=== PATIENT | male | born 1965 | race American Indian/Alaskan Native ===

== ENCOUNTER 2017-08-08 09:17 | Emergency (ER) | payer OTHER ==
[~2017-08-08] VITALS: Ht 177.8 cm; Wt 81.7 kg
[~2017-08-08 09:17] MED LIST: AMIO200 PO; ASPI325 PO; Amiodarone HCl200 MG PO; BUSP10 PO; CARV25 PO; CARV6.25 PO; CLIN300 PO; CRUTCH3 USE; Clindamycin HC300 MG PO; Cymbalta60 MG PO; DIGO.25 PO; DIGOX250 MCG PO; FURO20 PO; FURO40 PO; HYDACE5 PO; Klor-Con 1010 MEQ PO; LISI5 PO; NITR.4SL SL; Norco 5-325 Ta1 EACH PO; Norco 7.5-3251 EACH PO; OXYACE5T PO; OXYACE7.5T PO; POTCHL20ER PO; PRED20 PO; Prinivil10 MG PO; RXOXYACE PO; SPIR25 PO; TRAM50 PO; Tylenol325 MG PO; VICODIN 5-3001 EACH PO; WARF4 PO; WARF5 PO; WARF7.5 PO; [UNRECOGNIZED DRUG - OTHER] PO
[2017-08-08] MEDS ORDERED: Prednisone20 MG PO (10:46)
[2017-08-08] MEDS ORDERED: HYDR1TAB94 PO (10:46)
== END 2017-08-08 11:06 | disposition home or self-care (01) ==
LOC: ER 09:17
DX: M54.41 Lumbago with sciatica, right side (principal); I48.91 Unspecified atrial fibrillation; I50.9 Heart failure, unspecified; F17.210 Nicotine dependence, cigarettes, uncomplicated; Z79.899 Other long term (current) drug therapy; Z79.82 Long term (current) use of aspirin; Z79.01 Long term (current) use of anticoagulants
CPT/HCPCS: 99283

== ENCOUNTER 2018-10-04 13:03 | Day surgery (SDC) | payer MEDICARE, OTHER ==
[~2018-10-04] VITALS: Ht 177.8 cm; Wt 93.4 kg
[~2018-10-04 13:03] MED LIST changes: +BACL10 PO; +BUDE6HFA INH; +HYDR1TAB94 PO; +Prednisone20 MG PO; +TUDORZA PRESS400 MCG INH; -WARF4 PO
--- NOTE | 2018-10-04 13:53 | NUR ---
10/04/18 Kalina Branch CALL LIGHT WITHIN REACH.
--- NOTE | 2018-10-04 15:45 | NUR ---
10/04/18 1545 Julieta Mathews [facility].SXM (JULIETA MATHEWS)RN CHARTED ON THIS PATIENT UNDER [facility].KAYE (ANSLEY FRYE)RN DUE TO THE COMPUTER NOT LOGGING [facility] ALL THE WAY OUT PRIOR TO [facility].SXM USING IT. Sarkis MATHEWS RN UNAWARE OF IT NOT BEING IN HER NAME UNTIL THE END OF THE CASE. IT WAS DINESH MATHEWS CHARTING AND DOING THE WHOLE PROCEDURE.
== END 2018-10-04 15:31 | disposition home or self-care (01) ==
LOC: ORSCSDS 13:03
PROVIDERS: Surgery
PROC: 0DJD8ZZ Inspection of Lower Intestinal Tract, Via Natural or Artificial Opening Endoscopic (ICD-10-PCS; principal; 2018-10-04 14:30)
DX: Z12.11 Encounter for screening for malignant neoplasm of colon (principal); I10 Essential (primary) hypertension; I48.91 Unspecified atrial fibrillation; R73.03 Prediabetes; F43.10 Post-traumatic stress disorder, unspecified; Z79.82 Long term (current) use of aspirin; Z79.899 Other long term (current) drug therapy
CPT/HCPCS: J2370; J2704; J7120

== ENCOUNTER 2020-04-06 06:53 | Day surgery (SDC) | payer MEDICARE, OTHER ==
[~2020-04-06] VITALS: Ht 170.2 cm; Wt 100.0 kg
[~2020-04-06 06:53] MED LIST changes: +GABA300 PO; +XARELTO20 MG PO
[2020-04-06 07:45] LABS: BASOPHILS ABSOLUTE AUTO 0.07 K/mm3 (0.00-0.23); BASOPHILS PERCENT AUTO 1 % (0-2); EOSINOPHILS ABSOLUTE AUTO 0.34 K/mm3 (0.00-0.68); EOSINOPHILS PERCENT AUTO 3 % (0-6); Hemoglobin 15.9 g/dL (13.5-17.5); IMMATURE GRAN ABSOLUTE AUTO 0.03 K/mm3 (0.00-0.10); IMMATURE GRAN PERCENT AUTO 0 % (0-1); LYMPHOCYTES ABSOLUTE AUTO 4.54 K/mm3 (0.84-5.20); LYMPHOCYTES PERCENT AUTO 44 % (21-46); MONOCYTES ABSOLUTE AUTO 0.82 K/mm3 (0.16-1.47); MONOCYTES PERCENT AUTO 8 % (4-13); Mean Corpuscular HGB 30.6 pg (26.0-34.0); Mean Corpuscular HGB Conc 31.8 g/dL (31.5-36.5); Mean Corpuscular Volume 96 fL (80-100); Mean Platelet Volume 10.3 fL (9.1-12.4); NEUTROPHILS ABSOLUTE AUTO 4.49 K/mm3 (1.96-9.15); NEUTROPHILS PERCENT AUTO 44 % (41-73); Platelet Count 231 K/mm3 (150-400); RDW Coefficient Variation 18.5 % (11.7-14.2); White Blood Cell Count 10.29 K/mm3 (4.00-11.30)
[2020-04-06 07:59] LABS: International Normalized Ratio 1.02; Prothrombin Time Results 10.9 Sec (9.7-11.5)
[2020-04-06 08:04] LABS: Anion Gap 3 mmol/L (6-16); Blood Urea Nitrogen 15 mg/dL (8-24); Bun/Creatinine Ratio 17.3 (12.0-20.0); CO2, Blood 28 mmol/L (21-32); Calcium, Blood 8.7 mg/dL (8.5-10.1); Chloride, Blood 109 mmol/L (98-108); Creatinine, Blood 0.87 mg/dL (0.60-1.20); Glomerular Filtration Rate >60 (60-); Glucose, Blood 120 mg/dL (70-99); Sodium, Blood 140 mmol/L (136-145)
--- NOTE | 2020-04-06 10:05 | NUR ---
PT TO RECOVERY ROOM POST PROCEDURE. PT DROWSY, BUT CONVERSING APPROPRIATELY, DENIES CHEST PAIN POST PROCEDURE. MONITOR AFIBE 115, B/P 129/86, AFEBRILE, SPO2 95% RA. R RADIAL SITE NO SWELLING/HEMATOMA, TR BAND IN PLACE. R AC (VENOUS) NO SWELLNG/HEMATOMA, TEGADERM DRSG INTACT. PT TAKING SIPS OF FLUID WITHOUT ISSUE.
--- NOTE | 2020-04-06 10:35 | NUR ---
PT RECEIVED ONE TIME DOSE OF DIGOXIN. MEDICATION CHANGES DISCUSSED WITH PT, VERBALIZES GOOD UNDERSTANDING.
[2020-04-06] MEDS ORDERED: CARV3.125 PO (10:41)
[2020-04-06] MEDS ORDERED: DIGOX250 MCG PO (10:42)
--- NOTE | 2020-04-06 12:45 | NUR ---
PT AMB IN RECOVERY ROOM WITHOUT ISSUES, SITES UNCHANGED.
--- NOTE | 2020-04-06 12:55 | NUR ---
PT DRESSED SELF WITHOUT ISSUE, SITES UNCHANGED. TR BAND REMOVED CLOTH DOT AND IMMOBILIZER PLACED; IV REMOVED-CANNULA INTACT.
--- NOTE | 2020-04-06 13:01 | NUR ---
PT RECEIVED DISCHARGE INSTRUCTIONS, MED LIST AND AFTER CARE INSTRUCTIONS; VERBALIZED GOOD UNDERSTANDING. PT LEFT FACILITY VIA W/C, CONDITION STABLE.
== END 2020-04-06 13:00 | disposition home or self-care (01) ==
LOC: MHTC 06:53
PROVIDERS: Internal Medicine Cardiovascular Disease
PROC: B201YZZ Plain Radiography of Multiple Coronary Arteries using Other Contrast (ICD-10-PCS; principal; 2020-04-06)
PROC: 4A023N7 Measurement of Cardiac Sampling and Pressure, Left Heart, Percutaneous Approach (ICD-10-PCS; principal; 2020-04-06)
DX: I42.0 Dilated cardiomyopathy (principal); I34.0 Nonrheumatic mitral (valve) insufficiency; I10 Essential (primary) hypertension; E11.9 Type 2 diabetes mellitus without complications; F17.210 Nicotine dependence, cigarettes, uncomplicated; Z79.01 Long term (current) use of anticoagulants; Z79.899 Other long term (current) drug therapy; Z95.810 Presence of automatic (implantable) cardiac defibrillator; Z20.828 Contact with and (suspected) exposure to other viral communicable diseases; E66.3 Overweight; Z68.36 Body mass index [BMI] 36.0-36.9, adult
CPT/HCPCS: 80048; 85025; 85610; 93005; 93010; 93460; 99152; C1769; C1894; J0690; J1160; J1644; J2250; J3010; J7030; J7040; Q9967; U0004

== ENCOUNTER 2020-05-24 22:44 | Emergency (ER) | payer MEDICARE, OTHER ==
[~2020-05-24] VITALS: Ht 167.6 cm; Wt 99.8 kg
[~2020-05-24 22:44] MED LIST changes: +CARV3.125 PO
[2020-05-24 23:03] LABS: BASOPHILS ABSOLUTE AUTO 0.09 K/mm3 (0.00-0.23); BASOPHILS PERCENT AUTO 1 % (0-2); EOSINOPHILS ABSOLUTE AUTO 0.85 K/mm3 (0.00-0.68); EOSINOPHILS PERCENT AUTO 7 % (0-6); Hematocrit 47.6 % (37.0-53.0); Hemoglobin 15.5 g/dL (13.5-17.5); IMMATURE GRAN ABSOLUTE AUTO 0.05 K/mm3 (0.00-0.10); IMMATURE GRAN PERCENT AUTO 0 % (0-1); LYMPHOCYTES ABSOLUTE AUTO 7.18 K/mm3 (0.84-5.20); LYMPHOCYTES PERCENT AUTO 60 % (21-46); MONOCYTES ABSOLUTE AUTO 0.95 K/mm3 (0.16-1.47); MONOCYTES PERCENT AUTO 8 % (4-13); Mean Corpuscular HGB 30.5 pg (26.0-34.0); Mean Corpuscular HGB Conc 32.6 g/dL (31.5-36.5); Mean Corpuscular Volume 94 fL (80-100); Mean Platelet Volume 10.2 fL (9.1-12.4); NEUTROPHILS ABSOLUTE AUTO 2.88 K/mm3 (1.96-9.15); NEUTROPHILS PERCENT AUTO 24 % (41-73); Platelet Count 303 K/mm3 (150-400); RDW Coefficient Variation 15.4 % (11.7-14.2); Red Blood Cell Count 5.09 M/mm3 (4.30-5.90)
[2020-05-24 23:22] LABS: Alanine Aminotransfer (ALT/SGP 29 U/L (12-78); Albumin, Blood 3.2 g/dL (3.4-5.0); Albumin/Globulin Ratio 0.8 (0.8-1.8); Alk Phos 75 U/L (50-136); Anion Gap 8 mmol/L (6-16); Aspartate Aminotrans (AST/SGOT 24 U/L (12-37); Bilirubin, Total 0.2 mg/dL (0.1-1.0); Blood Urea Nitrogen 11 mg/dL (8-24); Bun/Creatinine Ratio 12.8 (12.0-20.0); CO2, Blood 26 mmol/L (21-32); Calcium, Blood 8.1 mg/dL (8.5-10.1); Chloride, Blood 109 mmol/L (98-108); Creatinine, Blood 0.86 mg/dL (0.60-1.20); Ethanol (Alcohol), Blood, Med 249 mg/dL; Globulin, Blood 3.9 g/dL (2.2-4.0); Glomerular Filtration Rate >60 (60-); Glucose, Blood 114 mg/dL (70-99); Potassium, Blood 3.6 mmol/L (3.5-5.5); Sodium, Blood 143 mmol/L (136-145); Total Protein, Blood 7.1 g/dL (6.4-8.2)
[2020-05-24 23:25] LABS: International Normalized Ratio 0.95; Prothrombin Time Results 10.2 Sec (9.7-11.5)
[2020-05-25 00:01] LABS: U Amphetamine Screen Not Detected; U Barbituate Screen Not Detected; U Benzodiazapine Screen Not Detected; U Buprenorphine Screen Not Detected; U Cannabinoids Screen Not Detected; U Cocaine Screen Not Detected; U Methadone Screen Not Detected; U Methamphetamine Screen Not Detected; U Opiates Screen Not Detected; U Oxycodone Screen Not Detected; U Phencyclidine Screen Not Detected; U Propoxyphene Screen Not Detected
== END 2020-05-25 01:17 | disposition home or self-care (01) ==
LOC: ER 22:44
PROVIDERS: Emergency Medicine
DX: F10.129 Alcohol abuse with intoxication, unspecified (principal); R41.82 Altered mental status, unspecified; I48.91 Unspecified atrial fibrillation; I50.9 Heart failure, unspecified; F17.210 Nicotine dependence, cigarettes, uncomplicated; Z79.01 Long term (current) use of anticoagulants; Z79.899 Other long term (current) drug therapy; Z95.0 Presence of cardiac pacemaker
CPT/HCPCS: 36415; 51701; 70450; 71045; 80053; 82947; 85025; 85610; 93005; 93010; 99285-25; G0480

== ENCOUNTER 2020-06-26 14:38 | Emergency (ER) | payer MEDICARE, OTHER ==
[~2020-06-26] VITALS: Ht 177.8 cm; Wt 95.2 kg
[2020-06-26 15:07] LABS: BASOPHILS ABSOLUTE AUTO 0.13 K/mm3 (0.00-0.23); BASOPHILS PERCENT AUTO 1 % (0-2); EOSINOPHILS ABSOLUTE AUTO 0.51 K/mm3 (0.00-0.68); EOSINOPHILS PERCENT AUTO 4 % (0-6); Hematocrit 46.5 % (37.0-53.0); Hemoglobin 14.9 g/dL (13.5-17.5); IMMATURE GRAN ABSOLUTE AUTO 0.04 K/mm3 (0.00-0.10); IMMATURE GRAN PERCENT AUTO 0 % (0-1); LYMPHOCYTES ABSOLUTE AUTO 5.25 K/mm3 (0.84-5.20); LYMPHOCYTES PERCENT AUTO 42 % (21-46); MONOCYTES ABSOLUTE AUTO 1.19 K/mm3 (0.16-1.47); MONOCYTES PERCENT AUTO 9 % (4-13); Mean Corpuscular HGB 31.5 pg (26.0-34.0); Mean Corpuscular Volume 98 fL (80-100); Mean Platelet Volume 10.6 fL (9.1-12.4); NEUTROPHILS PERCENT AUTO 44 % (41-73); Platelet Count 304 K/mm3 (150-400); RDW Coefficient Variation 14.6 % (11.7-14.2); RDW Standard Deviation 53.6 fL (35.1-46.3); Red Blood Cell Count 4.73 M/mm3 (4.30-5.90); White Blood Cell Count 12.62 K/mm3 (4.00-11.30)
[2020-06-26 15:27] LABS: Alanine Aminotransfer (ALT/SGP 24 U/L (12-78); Albumin, Blood 3.3 g/dL (3.4-5.0); Albumin/Globulin Ratio 0.8 (0.8-1.8); Alk Phos 84 U/L (50-136); Anion Gap 9 mmol/L (6-16); Aspartate Aminotrans (AST/SGOT 17 U/L (12-37); Bilirubin, Total 0.4 mg/dL (0.1-1.0); Blood Urea Nitrogen 9 mg/dL (8-24); Bun/Creatinine Ratio 12.4 (12.0-20.0); CO2, Blood 26 mmol/L (21-32); Calcium, Blood 8.3 mg/dL (8.5-10.1); Chloride, Blood 108 mmol/L (98-108); Creatinine, Blood 0.73 mg/dL (0.60-1.20); Globulin, Blood 3.9 g/dL (2.2-4.0); Glomerular Filtration Rate >60 (60-); Glucose, Blood 83 mg/dL (70-99); Potassium, Blood 3.9 mmol/L (3.5-5.5); Sodium, Blood 143 mmol/L (136-145); Total Protein, Blood 7.2 g/dL (6.4-8.2); Troponin I <0.015 ng/mL (0.000-0.040)
[2020-06-26 16:13] LABS: International Normalized Ratio 1.1; Prothrombin Time Results 11.7 Sec (9.7-11.5)
[2020-06-26] MEDS ORDERED: Vibramycin100 MG PO (18:38)
== END 2020-06-26 19:01 | disposition home or self-care (01) ==
LOC: ER 14:38
PROVIDERS: Emergency Medicine
DX: J18.9 Pneumonia, unspecified organism (principal); I11.0 Hypertensive heart disease with heart failure; I50.9 Heart failure, unspecified; J44.9 Chronic obstructive pulmonary disease, unspecified; I48.91 Unspecified atrial fibrillation; F17.210 Nicotine dependence, cigarettes, uncomplicated; Z79.899 Other long term (current) drug therapy; Z79.51 Long term (current) use of inhaled steroids
CPT/HCPCS: 36415; 71045; 80053; 83880; 84484; 85025; 85610; 93005; 93010; 96360; 99285-25; A9270; J7030

== ENCOUNTER 2021-02-04 16:39 | Inpatient (IN) | payer MEDICARE, OTHER ==
[~2021-02-04] VITALS: Ht 177.8 cm; Wt 119.3 kg
[~2021-02-04 16:39] MED LIST changes: -BUDE6HFA INH; +SYMBICORT 160-4.6 GM INH; +Vibramycin100 MG PO
[2021-02-04] MEDS ORDERED: ENTRESTO 97 MG1 EAC3 PO (17:22)
[2021-02-04] MEDS ORDERED: GABAPENTIN600 MG PO (17:24)
[2021-02-04] MEDS ORDERED: INCRUSE ELPT62.5MCG INH (17:24)
[2021-02-04] MEDS ORDERED: SPIRONOLACTONE25 MG PO (17:25)
[2021-02-04] MEDS ORDERED: DULOXETINE HCL60 M1 PO (17:25)
[2021-02-04] MEDS ORDERED: METO100ER PO (17:25)
[2021-02-04] MEDS ORDERED: JARDIANCE10 MG PO (17:25)
[2021-02-04] MEDS ORDERED: BUSPIRONE HCL10 M4 PO (17:25)
[2021-02-04] MEDS ORDERED: AMIT75 PO (17:25)
[2021-02-04] MEDS ORDERED: K-Dur 20 meq T20 MEQ PO (17:32)
[2021-02-04] MEDS ORDERED: FUROSEMIDE40 MG PO (17:32)
[2021-02-04 18:00] LABS: Base Excess Venous -2.9 mmol/L; Bicarbonate Venous 22.7 mmol/L (24.0-30.0); PCO2 Venous 33.4 mmHg (38-42); pH Blood Venous 7.42 (7.34-7.37)
[2021-02-04 18:07] LABS: BASOPHILS ABSOLUTE AUTO 0.02 K/mm3 (0.00-0.23); BASOPHILS PERCENT AUTO 0 % (0-2); EOSINOPHILS PERCENT AUTO 0 % (0-6); Hematocrit 50.2 % (37.0-53.0); Hemoglobin 17.3 g/dL (13.5-17.5); IMMATURE GRAN ABSOLUTE AUTO 0.05 K/mm3 (0.00-0.10); IMMATURE GRAN PERCENT AUTO 1 % (0-1); LYMPHOCYTES ABSOLUTE AUTO 1.92 K/mm3 (0.84-5.20); LYMPHOCYTES PERCENT AUTO 26 % (21-46); MONOCYTES ABSOLUTE AUTO 0.53 K/mm3 (0.16-1.47); MONOCYTES PERCENT AUTO 7 % (4-13); Mean Corpuscular HGB 32.4 pg (26.0-34.0); Mean Corpuscular HGB Conc 34.5 g/dL (31.5-36.5); Mean Corpuscular Volume 94 fL (80-100); Mean Platelet Volume 10.1 fL (9.1-12.4); NEUTROPHILS ABSOLUTE AUTO 4.83 K/mm3 (1.96-9.15); NEUTROPHILS PERCENT AUTO 66 % (41-73); NRBC ABSOLUTE 0.02 K/mm3 (0.00-0.02); NRBC Auto 0.3 /100 WBC (0.0-0.2); Platelet Count 220 K/mm3 (150-400); RDW Coefficient Variation 13.8 % (11.7-14.2); RDW Standard Deviation 48.2 fL (35.1-46.3); Red Blood Cell Count 5.34 M/mm3 (4.30-5.90); White Blood Cell Count 7.35 K/mm3 (4.00-11.30)
[2021-02-04 18:32] LABS: Troponin I <0.015 ng/mL (0.000-0.040)
[2021-02-04 18:34] LABS: Alanine Aminotransfer (ALT/SGP 42 U/L (12-78); Albumin, Blood 3.4 g/dL (3.4-5.0); Albumin/Globulin Ratio 0.7 (0.8-1.8); Alk Phos 76 U/L (50-136); Anion Gap 8 mmol/L (6-16); Aspartate Aminotrans (AST/SGOT 65 U/L (12-37); Bilirubin, Total 0.7 mg/dL (0.1-1.0); Blood Urea Nitrogen 13 mg/dL (8-24); Bun/Creatinine Ratio 13.5 (12.0-20.0); CO2, Blood 22 mmol/L (21-32); Calcium, Blood 8.6 mg/dL (8.5-10.1); Chloride, Blood 101 mmol/L (98-108); Creatinine, Blood 0.96 mg/dL (0.60-1.20); Globulin, Blood 4.6 g/dL (2.2-4.0); Glomerular Filtration Rate >60 (60-); Glucose, Blood 78 mg/dL (70-99); Potassium, Blood 4.3 mmol/L (3.5-5.5); Sodium, Blood 131 mmol/L (136-145)
--- NOTE | 2021-02-05 00:16 | NUR ---
PATIENT ARRRIVED TO THE FLOOR VIA GURNEY. ADMIT FOR COVID 19. AOX3, COOPERATIVE, ILL APPEARING. PALE, DIAPHORTIC. TRANSFERRED TO BED USING SLIDER SHEET, TURNING BACK AND FORTH, CAUSED HIM TO BECOME DYSPNIC RAISING RESPIRATIONS IN THE 20'S. ON 3 LITERS OF O2 SATS MID 90'S. LUNG SOUNDS CLEAR BUT VERY DIMINISHED IN THE BASES AND TIGHT. HR TACHY RUNNING IN 110'S, DOES HAVE DEFIB/PACEMAKER. MIDLINE INCISION FROM SPLEEN SURGERY. REFUSED TO REMOVE PANTS, DENIES ANY ISSUES WITH SKIN. DENIES ANY N/T. ENCOURAGE SLEEPING ON SIDE OR PRONE. DISCUSSED TREATMENT PLAN AND CARE PLAN. DENIED ANY QUESTIONS OR CONCERNS, STATES HE IS JUST TIRED. CALL LIGHT GIVEN, BED ALARM IS ON.
--- NOTE | 2021-02-05 04:12 | NUR ---
REPORT GIVEN TO BRENDA MONTIEL WHO WILL BE ASSUMING CARE.
[2021-02-05 04:51] LABS: Hematocrit 52.4 % (37.0-53.0); Hemoglobin 17.4 g/dL (13.5-17.5); Mean Corpuscular HGB 31.8 pg (26.0-34.0); Mean Corpuscular HGB Conc 33.2 g/dL (31.5-36.5); Mean Corpuscular Volume 96 fL (80-100); NRBC ABSOLUTE 0.04 K/mm3 (0.00-0.02); NRBC Auto 0.5 /100 WBC (0.0-0.2); Platelet Count 233 K/mm3 (150-400); RDW Coefficient Variation 14.2 % (11.7-14.2); RDW Standard Deviation 50.7 fL (35.1-46.3); Red Blood Cell Count 5.47 M/mm3 (4.30-5.90); White Blood Cell Count 7.44 K/mm3 (4.00-11.30)
[2021-02-05 05:38] LABS: Anion Gap 9 mmol/L (6-16); Blood Urea Nitrogen 12 mg/dL (8-24); Bun/Creatinine Ratio 13.7 (12.0-20.0); CO2, Blood 18 mmol/L (21-32); Calcium, Blood 8.3 mg/dL (8.5-10.1); Chloride, Blood 106 mmol/L (98-108); Creatinine, Blood 0.88 mg/dL (0.60-1.20); Glomerular Filtration Rate >60 (60-); Glucose, Blood 125 mg/dL (70-99); Potassium, Blood 4.5 mmol/L (3.5-5.5); Sodium, Blood 133 mmol/L (136-145)
--- NOTE | 2021-02-05 16:43 | NUR ---
PT HAD WATERY BROWN STOOL. DR. SALINAS NOTIFIED AND TO RECIEVED TO GET GI PCR. ORDER PROCESSED. STOOL FLUSHED ALREADY. WILL COLLECT NEXT STOOL SAMPLE.
--- NOTE | 2021-02-05 17:23 | NUR ---
SHIFT SUMMARY: PT A/O X 3, IND IN ROOM. PT HAD WATERY STOOL TODAY. GI PCR ORDERED BY DR. SALINAS. PT ON 6 LPM VIA VT. LS CLEAR, NO ACUTE CHANGES THIS SHIFT.
[2021-02-06 05:22] LABS: Albumin, Blood 3.1 g/dL (3.4-5.0); Anion Gap 10 mmol/L (6-16); Blood Urea Nitrogen 18 mg/dL (8-24); Bun/Creatinine Ratio 22.7 (12.0-20.0); CO2, Blood 20 mmol/L (21-32); Calcium, Blood 8.7 mg/dL (8.5-10.1); Chloride, Blood 103 mmol/L (98-108); Creatinine, Blood 0.79 mg/dL (0.60-1.20); Glomerular Filtration Rate >60 (60-); Glucose, Blood 93 mg/dL (70-99); Phosphorus, Blood 2.9 mg/dL (2.5-4.9); Sodium, Blood 133 mmol/L (136-145)
--- NOTE | 2021-02-06 16:53 | NUR ---
MR. ROLY ALARCON IS ALERT AND ORIENTED X 4. NO REPORTS OF PAIN. SOB WITH EXERTION. DURING ROUNDS AT 1425, THE PATIENT REPORTED HE WAS NOT FEELING WELL. HE STATED "I FEEL LIKE I WANT TO THROW UP". HE COULD NOT PROVIDE ANY OTHER SPECIFICS. HIS VS WERE 89/58, P-46-58, R - 36, SAT 92 - 93% 0N 5L NC. HE APPEARED ANXIOUS. HE LATER STATED "I FEEL LIKE I FELT WHEN I CAME TO THE HOSPITAL." CHARGE NURSE WAS NOTIFIED. 1456 DR. SALINAS WAS NOTIFIED VIA PHONE. DR. SALINAS REQUESTED FOR BLOOD PRESSURE RECHECK. AT 1458, B/P WAS 92/46, P 58. DR. SALINAS WAS IMMEDIATELY NOTIFED OF B/P AND SHE GAVE ORDERS TO RE-CHECK B/P IN 20 MIN. AT 1538, B/P WAS 94/77 P - 84 AND PATIENT APPEARED TO BE RELAXING. B/P WAS CALLED TO DR. SALINAS. SHE REQUESED FOR B/P TO BE RECHECKED IN ONE HOUR. THE PATIENT STATED HE WAS TRYING TO RELAX AND CALM HIMSELF. HE DENIES FEELING NAUSEA. HE HAS BEEN ABLE TO TOLERATE PO MEDS THUS FAR. HE DID NOT HAVE A BM. HE IS DRINKING ALOT OF FLUIDS AND VOIDING WITHOUT DIFFICULTY.
--- NOTE | 2021-02-06 19:27 | NUR ---
THE PATIENT'S BLOOD PRESSURE WAS 95/53, P 79. THE PATIENT C/O STOMACH 'GRUMBLING', HE DID NOT EAT DINNER DUE TO NOT FEELING WELL. NO OTHER SYMPTOMS REPORTED. DR SALINAS WAS NOTIFIED. ORDERS RECEIVED TO HOLD ALL CARDIAC MEDS FOR TONIGHT ONLY AND MONITOR. TELEPHONE ORDER WAS SUBMITTED AND PM NURSE NOTIFIED.
--- NOTE | 2021-02-07 05:41 | NUR ---
END OF SHIFT REPORT: Pt is tachypneic and sats dropping to low 80's on 5L NC. Pt put to 9L and is satting >90% when awake. While asleep, pt is a mouth breather and sat goes down ot 80's. Pt is refusing CPAP. RT notified. Pt put on NRB at this time. Pt satting 90-95% Pt A&Ox4.
[2021-02-07 06:27] LABS: Albumin, Blood 2.7 g/dL (3.4-5.0); Anion Gap 7 mmol/L (6-16); Blood Urea Nitrogen 21 mg/dL (8-24); CO2, Blood 22 mmol/L (21-32); Calcium, Blood 8.4 mg/dL (8.5-10.1); Chloride, Blood 100 mmol/L (98-108); Creatinine, Blood 0.92 mg/dL (0.60-1.20); Glomerular Filtration Rate >60 (60-); Glucose, Blood 100 mg/dL (70-99); Phosphorus, Blood 4.3 mg/dL (2.5-4.9); Potassium, Blood 5.5 mmol/L (3.5-5.5); Sodium, Blood 129 mmol/L (136-145)
[2021-02-07 13:50] LABS: Base Excess Venous -2.1 mmol/L; Bicarbonate Venous 23.5 mmol/L (24.0-30.0); PCO2 Venous 33.2 mmHg (38-42); PO2 Venous 83.2 mmHg (38-42); pH Blood Venous 7.43 (7.34-7.37)
--- NOTE | 2021-02-07 16:24 | NUR ---
MR. ROLY ALARCON IS ALERT AND ORIENTED X 4. HE DENIES PAIN. HE REPORTS THIS MORNING OF NOT FEELING WELL. HE STATES HIS STOMACH IS RUMBLING ALOT. RESP RATE 40'S. HE DENIED SOB. SPOKE WITH DR. SALINAS. ABD XRAY ORDER AND LABS. THE PATIENT WENT FOR XRAY VIA WHEELCHAIR. HE IS ON A NON-REBREATHER WITH 02 SAT LOW 90'S. ABD LARGE SEMI-FIRM WITH HYPERACTIVE BS. HE DID NOT HAVE BM TODAY. EATING BETTER AND VOIDING WITHOUT DIFFICULTY. IV 20G IS PATENT. HE IS RESTING QUIETLY. LABS ABNORMAL AND DR. SALINAS AWARE. HE IS IN NO ACUTE DISTRESS AT THIS TIME.
--- NOTE | 2021-02-08 05:37 | NUR ---
END OF SHIFT REPORT: Pt satting at 89-94% on NRB 100%. He is still tachypneic. At this time, respirations at 44, RT notified. Pt reporting no SOB at this time, sats at 90% Call light within reach. Bed at lowest position. Pt Afib at 100 per television maintenance man. No pt needs/requests at this time.
[2021-02-08 05:49] LABS: Albumin, Blood 2.8 g/dL (3.4-5.0); Anion Gap 9 mmol/L (6-16); Blood Urea Nitrogen 21 mg/dL (8-24); Bun/Creatinine Ratio 26.4 (12.0-20.0); CO2, Blood 23 mmol/L (21-32); Calcium, Blood 8.5 mg/dL (8.5-10.1); Chloride, Blood 101 mmol/L (98-108); Creatinine, Blood 0.79 mg/dL (0.60-1.20); Glomerular Filtration Rate >60 (60-); Glucose, Blood 117 mg/dL (70-99); Phosphorus, Blood 3.9 mg/dL (2.5-4.9); Potassium, Blood 4.4 mmol/L (3.5-5.5); Sodium, Blood 133 mmol/L (136-145)
--- NOTE | 2021-02-08 10:56 | NUR ---
THIS AM UPON RECEIVING PATIENT PATIENT NOTED WITH SOB WAS ON 15L PER NRB MASK APPEARED TO BE WEAK FATIGUED O2 SATS 86-89% SPOKE WITH MD PATIENT TO BE PLACED ON AIRVOW/HIGH FLOW O2 RT NOTIFIED AND PLACED PATIENT ON AIRVOW 45L @ 80% PATIENT IMMEDIATELY VERBALIZED IMPROVEMENT IN RESP STATUS DECREASED SOB SATS >92 % PATIENT A&OX4 DENIES PAIN WILL CONT TO MONITOR
[2021-02-09 06:37] LABS: Anion Gap 9 mmol/L (6-16); Blood Urea Nitrogen 23 mg/dL (8-24); Bun/Creatinine Ratio 28.9 (12.0-20.0); CO2, Blood 23 mmol/L (21-32); Calcium, Blood 8.3 mg/dL (8.5-10.1); Chloride, Blood 101 mmol/L (98-108); Digoxin (Lanoxin) 0.55 ug/mL (0.80-2.00); Glomerular Filtration Rate >60 (60-); Glucose, Blood 139 mg/dL (70-99); Potassium, Blood 4.4 mmol/L (3.5-5.5); Sodium, Blood 133 mmol/L (136-145)
--- NOTE | 2021-02-09 09:56 | NUR ---
PATIENT NOTED WITH INTERMITTENT EPISODES OF BRADYCARDIA DIGOXIN HELD THIS AM ORDERED FOR HEARTRATE OF 55 PATIENT DENIES CHEST PAIN REMAINS WITH INTERMITTENT SOB O2 VIA AIRVOW MAINTAINED @ 60L 80% HAS STRONG DRY NON-PRODUCTIVE COUGH DR GALINDO MADE AWARE WILL CONT TO MONITOR
--- NOTE | 2021-02-09 15:55 | NUR ---
PATIENT WITH NO CHANGES IN CONDITION NOTED THIS SHIFT REMAINS A&OX4 ABLE TO VERBALIZE NEEDS REMAINS ON O2 VIA AIRVOW 60L 80% WITH INTERMITTENT SOB/DOMINGUEZ STRONG DRY COUGH DENIES PAIN ADEQUATE PO INTAKE WILL CONT TO MONITOR
--- NOTE | 2021-02-09 18:31 | NUR ---
PATIENT REMAINS WITH SOB ENCOURAGED PRONE OR SIDE-LYING POSITION IN ATTEMPTS TO IMPROVE OXYGENATION PATIENT VERBALIZES UNDERSTANDING HOWEVER CONTINUES TO SIT UP IN BED WITH HOB ELEVATED STATED HE MAY ATTEMPT SIDE-LYING TO PRONE POSITIONING LATER TONIGHT WILL CONTINUE TO ENCOURAGE
[2021-02-10 03:14] LABS: PCO2 Arterial 39.8 mmHg (35-45); PO2 Arterial 57.2 mmHg (80-100); pH Blood Arterial 7.43 (7.35-7.45)
--- NOTE | 2021-02-10 04:47 | NUR ---
PATIENT CONTINUED TO DESAT WHILE ON O2 VIA AIRVO HIGH FLOW AT 60 LPM AND NON REBREATHER AT 15L 02. PATIENT NOTED WITH LABORED BREADING WITH 02 SAT AT LOW 80s. MD CALLED AND NOTIFIED. MD GAVE NEW ORDERS FOR BIPAP/CPAP, AND ABGs. THE RESPIRATORY THERAPY ADMINISTERED BIPAP AND WAS UNSUCCESSFUL TO RAISE THE 02 SAT TO THE 90s. THE RESPIRATORY THERAPIST ADMINISTERED CPAP AND WAS SUCCESFUL TO RAISE THE 02 SAT UP TO 93% TO 95%. PATIENT IS TOLERATING CPAP WELL. PATIENT HAS HISTORY OF OBSTRUCTIVE SLEEP APNEA, AFIB, CHF, PACE MAKER WITH DEFIBRILLATOR. PATIENT CONTINUE TO REQUIRE HIGHER DOSES OF OXYGEN. PATIENT CONTINUED WITH NON PRODUCTIVE COUGH. PATIENT WAS ENCOURAGED TO SLEEP ON HIS SIDE, BUT CONTINUED TO SLEEP ON HIS BACK. VITAL SIGNS 96.7, 55, 32, 107/75. WILL CONTINUE TO MONITOR AND ENCOURAGE TO SLEEP AND HIS SIDE FOR BETTER OXYGEN CIRCULATION.
--- NOTE | 2021-02-10 18:04 | NUR ---
PATIENT A&OX4 ABLE TO VERBALIZE NEEDS REMAINS ON CPAP RT ATTEMPTED TO WEAN OFF OF CPAP WAS UNSUCCESSFUL PATIENT UABLE TO MAINTAIN ADEQUATE O2 SATURATION ON BIPAP SATS FLUCTUATING 90-98% PATIENT VERBALIZES FEELING FATIGUED MED AND SIPS OF WATER TOLERATED DENIES PAIN FAMILY GIVEN UPDATE ON PATIENT STATUS AT THIS TIME PATIENT SITTING UP IN BED CALL LIGHT WITHIN REACH WILL CONT TO MONITOR
--- NOTE | 2021-02-11 05:47 | NUR ---
PATIENT CONTINUE ON CPAP THIS SHIFT D/T DIFFICULTY BREATHING, 02 SAT IN THE MID 90s TO UPPER 90s. VITAL SIGNS BP 100/97, HR 80, RESP 30, 02 SAT 97%. VALSARTEN WAS HELD DUE TO BP 100/97. PATIENT WAS ABLE TO USE URINAL INDEPENDENTLY. PATIENT TOLERATED PO MEDICATIONS WELL, SOLU MEDROL ADMIMINISTERED VIA SALIN LOCK IV. PATIENT IS ALERT AND ORIENTED PLEASANT AND COOPERATIVE. WILL CONTINUE TO MONITOR AND ENCOURAGED.
--- NOTE | 2021-02-11 10:52 | NUR ---
0900 TRIALED PT ON AIRVO FROM CPAP. DID WELL FOR 1 1/2 TO 2 HR. O2 SATS FELL. REPLACED CPAP BY RESP THERAPY. PT SATS BACK >90%.
--- NOTE | 2021-02-11 16:55 | NUR ---
PT WAS ON TELE THIS AM. RUNNING AFIB AT 86. WE D/C PER DARRYL GALINDO. HOWEVER, NOTICED THE MONITOR FOR CONT BIOX READING LOW 40 TO 50. RADIAL PULSES ARE IRREG, IS PT IS IN AFIB. CALLED DR GALINDO, ORDERS FOR REPLACE TELE ONPT OVERNITE TO VERIFY NO PROBLS.
--- NOTE | 2021-02-11 17:02 | NUR ---
PT QUITE PLEASANT TODAY. NO C/O PAIN TODAY. WE DID TRIAL HIM ON AIRVO TODAY. DID WELL FOR ABOUT 2 HRS THEN DROPPED. PLACED ON CPAP AGAIN. ALSO DR GALINDO D/C TELE THIS AM. DONE. THEN NOTED THE CONT BIOX SHOWING H/R DROPPING TO LOW 40-50. RADIAL PULSES SHOW ABOUT 45. CALLED DR GALINDO. OKAYED REPLACE TELE. AND WATCH OVERNITE. DONE. NO OTHER NEW CONCERNS NOTED TODAY. BED IN LOW POSITION, CALL LITE IN REACH, CALLS APPROP
--- NOTE | 2021-02-12 06:16 | NUR ---
SHIFT SUMMARY PATIENT ALERT AND ORIENTED. NO COMPLAINTS OF PAIN. FOLLOWED BY RT. NO ACUTE ISSUES NOTED OVERNIGHT. CALL LIGHT WITHIN REACH. REPORT GIVEN TO ONCOMING RN.
--- NOTE | 2021-02-12 09:56 | NUR ---
HOLD H/R PER DR GALINDO. LOW BP
--- NOTE | 2021-02-12 18:21 | NUR ---
PT QUITE PLEASANT TODAY, STATES FEELS SOME SMALL IMPROVEMENT TODAY. HAS BEEN ON AIRVO ALL OF TODAY. STATES DOES TURN SELF IN BED AND DOES MOVE ABOUT SOME. ENCOURAGED MORE ESPECIALLY TO GET OFF BACK AND BOTTOM. STATES DOES. OT HAS BEEN MOSTLY HOLDING IN MID 'S TODAY. VERY RARELY DROPPING HAS DONE IN PAST. NO NEW CONCERNS NOTED. BED IN LOW POSITION, CALL LITE IN REACH, CALLS APROP
--- NOTE | 2021-02-13 04:40 | NUR ---
NO ACUTE CHANGES OR SIGNIFICANT EVENTS OCCURRED OVERNIGHT. PATIENT SLEPT ON AIRVO 50L/95%. MOSTLY SAT IN LOWER 90S. OCCASSIONALY WILL DESAT TO UPPER 80S VERY BRIEFLY THEN RETURN TO 90S. DENIES PAIN. DENIES NAUSEA.
[2021-02-13 05:28] LABS: BASOPHILS ABSOLUTE AUTO 0.04 K/mm3 (0.00-0.23); BASOPHILS PERCENT AUTO 0 % (0-2); EOSINOPHILS PERCENT AUTO 0 % (0-6); Hematocrit 53.4 % (37.0-53.0); IMMATURE GRAN ABSOLUTE AUTO 0.15 K/mm3 (0.00-0.10); IMMATURE GRAN PERCENT AUTO 1 % (0-1); LYMPHOCYTES ABSOLUTE AUTO 0.97 K/mm3 (0.84-5.20); LYMPHOCYTES PERCENT AUTO 7 % (21-46); MONOCYTES ABSOLUTE AUTO 0.37 K/mm3 (0.16-1.47); MONOCYTES PERCENT AUTO 3 % (4-13); Mean Corpuscular HGB 31.7 pg (26.0-34.0); Mean Corpuscular HGB Conc 33.7 g/dL (31.5-36.5); Mean Corpuscular Volume 94 fL (80-100); Mean Platelet Volume 10.3 fL (9.1-12.4); NEUTROPHILS ABSOLUTE AUTO 12.22 K/mm3 (1.96-9.15); NEUTROPHILS PERCENT AUTO 89 % (41-73); NRBC ABSOLUTE 0.06 K/mm3 (0.00-0.02); NRBC Auto 0.4 /100 WBC (0.0-0.2); Platelet Count 307 K/mm3 (150-400); RDW Coefficient Variation 13.7 % (11.7-14.2); RDW Standard Deviation 47.9 fL (35.1-46.3); Red Blood Cell Count 5.67 M/mm3 (4.30-5.90); White Blood Cell Count 13.75 K/mm3 (4.00-11.30)
[2021-02-13 06:01] LABS: Anion Gap 8 mmol/L (6-16); Blood Urea Nitrogen 27 mg/dL (8-24); CO2, Blood 27 mmol/L (21-32); Calcium, Blood 8.6 mg/dL (8.5-10.1); Chloride, Blood 97 mmol/L (98-108); Glomerular Filtration Rate >60 (60-); Glucose, Blood 148 mg/dL (70-99); Potassium, Blood 4.5 mmol/L (3.5-5.5); Sodium, Blood 132 mmol/L (136-145)
--- NOTE | 2021-02-13 18:30 | NUR ---
SHIFT SUMMARY: PT A/O X3. PT USES URINAL AT BEDSIDE. PT HAS NOT HAD A BM IN 3 DAYS PER HIS REPORT BUT I/O INDICATE SINCE THE . MIRALAX GIVEN IN THE EVENING. PT TITRATED O2 TO 50 LPM, 70 FIO2 WITH SATS IN THE LOW 90'S. PT DENIES PAIN. NO ACUTE CONCERNS THIS SHIFT.
[2021-02-14 04:53] LABS: Hematocrit 52.8 % (37.0-53.0); Hemoglobin 17.8 g/dL (13.5-17.5); Mean Corpuscular HGB 31.4 pg (26.0-34.0); Mean Corpuscular HGB Conc 33.7 g/dL (31.5-36.5); Mean Corpuscular Volume 93 fL (80-100); Mean Platelet Volume 9.9 fL (9.1-12.4); Platelet Count 306 K/mm3 (150-400); RDW Coefficient Variation 13.4 % (11.7-14.2); RDW Standard Deviation 46.3 fL (35.1-46.3); Red Blood Cell Count 5.66 M/mm3 (4.30-5.90)
--- NOTE | 2021-02-14 04:53 | NUR ---
OXYGEN WAS BETWEEN 90%-93% THROUGHOUT THE ENTIRE NIGHT ON AIRVO. NO SIGNIFICANT EVENTS OCCURED.
[2021-02-14 04:55] LABS: NRBC ABSOLUTE 0.04 K/mm3 (0.00-0.02); NRBC Auto 0.3 /100 WBC (0.0-0.2); White Blood Cell Count 13.72 K/mm3 (4.00-11.30)
[2021-02-14 05:13] LABS: Alanine Aminotransfer (ALT/SGP 58 U/L (12-78); Albumin, Blood 2.3 g/dL (3.4-5.0); Albumin/Globulin Ratio 0.5 (0.8-1.8); Alk Phos 68 U/L (50-136); Anion Gap 5 mmol/L (6-16); Aspartate Aminotrans (AST/SGOT 39 U/L (12-37); Bilirubin, Total 0.7 mg/dL (0.1-1.0); Blood Urea Nitrogen 21 mg/dL (8-24); Bun/Creatinine Ratio 29.2 (12.0-20.0); CO2, Blood 28 mmol/L (21-32); Calcium, Blood 8.3 mg/dL (8.5-10.1); Chloride, Blood 99 mmol/L (98-108); Creatinine, Blood 0.72 mg/dL (0.60-1.20); Ferritin, Serum 588 ng/mL (26-388); Globulin, Blood 4.7 g/dL (2.2-4.0); Glomerular Filtration Rate >60 (60-); Glucose, Blood 144 mg/dL (70-99); Sodium, Blood 132 mmol/L (136-145)
--- NOTE | 2021-02-14 18:46 | NUR ---
SHIFT SUMMARY: PT A/O X 3 USES URINAL AT BEDSIDE. PT CONTINUES TO BE ON AIRVO 50 LPM 70 FIO2. PT SATS IN THE AM WERE 90-92 BUT NOW ARE 94-95%. PT HAD NO ACUTE EVENTS TODAY. PT CONTINUES TO DENY HAVING URGE TO HAVE BM.
--- NOTE | 2021-02-15 05:04 | NUR ---
PATIENT SLEPT ON BIPAP. OXYGEN LEVEL MAINTAINED WELL. HE DID HAD AN EPISODE WHERE HE REMOVED HIS CPAP WHILE SLEEPING. HE DESATED TO THE LOWER 80S. ONCE THE CPAP WAS PLACED BACK ON, OXYGEN LEVEL NORMALIZED. HE IS GREATER THAN 92% OXYGEN LEVEL ON CPAP OVERNIGHT. ALSO, MIRALAX GIVEN FOR CONSITPATION. NO OTHER SIGNIFICANT OCCURRENCES OR ACUTE CHANGES IN CONDITION NOTED OVERNIGHT.
[2021-02-15 05:15] LABS: Hematocrit 52.4 % (37.0-53.0); Hemoglobin 17.6 g/dL (13.5-17.5); Mean Corpuscular HGB 31.6 pg (26.0-34.0); Mean Corpuscular HGB Conc 33.6 g/dL (31.5-36.5); Mean Corpuscular Volume 94 fL (80-100); Mean Platelet Volume 10.2 fL (9.1-12.4); NRBC ABSOLUTE 0.04 K/mm3 (0.00-0.02); NRBC Auto 0.2 /100 WBC (0.0-0.2); Platelet Count 287 K/mm3 (150-400); RDW Coefficient Variation 13.5 % (11.7-14.2); Red Blood Cell Count 5.57 M/mm3 (4.30-5.90); White Blood Cell Count 16.43 K/mm3 (4.00-11.30)
[2021-02-15 05:44] LABS: Anion Gap 4 mmol/L (6-16); Blood Urea Nitrogen 19 mg/dL (8-24); Bun/Creatinine Ratio 26.5 (12.0-20.0); CO2, Blood 30 mmol/L (21-32); Calcium, Blood 8.6 mg/dL (8.5-10.1); Chloride, Blood 98 mmol/L (98-108); Creatinine, Blood 0.72 mg/dL (0.60-1.20); Glomerular Filtration Rate >60 (60-); Glucose, Blood 152 mg/dL (70-99); Potassium, Blood 4.8 mmol/L (3.5-5.5); Sodium, Blood 132 mmol/L (136-145)
--- NOTE | 2021-02-15 13:10 | NUR ---
Pt`s door closed, from, can not go in ,offered prayer from the door of the room of the Pt.
--- NOTE | 2021-02-15 13:25 | NUR ---
AIRVO TITRATED DOWN TO 45 LPM, 60% O2 AND SATS HAVE REMAINED 92-93% THE PAST TWO HOURS. TIRATED FURTHER TO 40 LPM, 60% FIO2. SATS 93% AT THIS TIME.
--- NOTE | 2021-02-15 19:30 | NUR ---
SHIFT SUMMARY: PT A/O X 3 IND IN ROOM. PT TITRATED DOWN T/OUT DAY AND SWITCHED TO HIGH FLOW NC AT 12 LPM AT SHIFT END WITH SATS BETWEEN 91-93%. PT STILL HAS NOT HAD A BM, DENIES SYMPTOMS OF CONSTIPATION. NOC RN NOTIFIED AND WILL GIVE MIRALAX. NO OTHER ACUTE CONCERNS THIS SHIFT.
--- NOTE | 2021-02-16 03:28 | NUR ---
PATIENT WAS CHANGED FROM HIGH FLOW, HUMIDIFIED NASAL CANNULA BACK TO AIRVO OVERNIGHT DUE TO OXYGEN BEING IN UPPER 80S. PATIENT WAS DOING FINE ON AIRVO BUT OCCASSIONALLY WILL REMOVE OXYGEN AND DESAT TO LOW 70S. RESPIRATORY WAS PAGED AND CAME TO CHECK ON PATIENT BC OXYGEN WAS MAINTAINING BETWEEN 88-90% AFTER AIRVO WAS PLACED BACK ON. CURRENTLY PATIENT IS %91-93% ON AIRVO.
[2021-02-16 05:06] LABS: Hematocrit 53.1 % (37.0-53.0); Hemoglobin 17.9 g/dL (13.5-17.5); Mean Corpuscular HGB 31.6 pg (26.0-34.0); Mean Corpuscular HGB Conc 33.7 g/dL (31.5-36.5); Mean Corpuscular Volume 94 fL (80-100); Mean Platelet Volume 10.4 fL (9.1-12.4); NRBC ABSOLUTE 0.03 K/mm3 (0.00-0.02); NRBC Auto 0.2 /100 WBC (0.0-0.2); Platelet Count 308 K/mm3 (150-400); RDW Coefficient Variation 13.5 % (11.7-14.2); RDW Standard Deviation 46.5 fL (35.1-46.3); Red Blood Cell Count 5.66 M/mm3 (4.30-5.90); White Blood Cell Count 18.17 K/mm3 (4.00-11.30)
[2021-02-16 05:22] LABS: Anion Gap 5 mmol/L (6-16); Blood Urea Nitrogen 21 mg/dL (8-24); CO2, Blood 29 mmol/L (21-32); Calcium, Blood 8.4 mg/dL (8.5-10.1); Chloride, Blood 99 mmol/L (98-108); Creatinine, Blood 0.72 mg/dL (0.60-1.20); Glomerular Filtration Rate >60 (60-); Glucose, Blood 147 mg/dL (70-99); Sodium, Blood 133 mmol/L (136-145)
--- NOTE | 2021-02-16 18:44 | NUR ---
SHIFT SUMMARY PT A/O X4 AND NO ACUTE CHANGES THIS SHIFT. HE CONTINUES TO HAVE DYSPNEA AND REMAINS ON AIRVO AT 45 LITERS AND 75% O2. PT REPORTS CONSTIPATION BUT REFUSES HIS MIRALAX. PT STATES THAT MIRALAX, NOR ANY OTHER TYPE OF LAXATIVE WORKS WELL FOR HIM. IND IN THE ROOM, USES THE URINAL AT BED SIDE. VSS. WILL REPORT TO YUE MONTIEL.
--- NOTE | 2021-02-16 19:05 | NUR ---
ASSUMED CARE RECEIVED REPORT FROM DINESH BIANCHI. PT RESTING, IN NAD. CALL LIGHT IN REACH.
[2021-02-17 04:59] LABS: BASOPHILS ABSOLUTE AUTO 0.05 K/mm3 (0.00-0.23); BASOPHILS PERCENT AUTO 0 % (0-2); EOSINOPHILS PERCENT AUTO 0 % (0-6); Hematocrit 52.7 % (37.0-53.0); Hemoglobin 17.9 g/dL (13.5-17.5); IMMATURE GRAN ABSOLUTE AUTO 0.22 K/mm3 (0.00-0.10); IMMATURE GRAN PERCENT AUTO 1 % (0-1); LYMPHOCYTES ABSOLUTE AUTO 1.27 K/mm3 (0.84-5.20); LYMPHOCYTES PERCENT AUTO 6 % (21-46); MONOCYTES ABSOLUTE AUTO 0.66 K/mm3 (0.16-1.47); MONOCYTES PERCENT AUTO 3 % (4-13); Mean Corpuscular HGB 31.6 pg (26.0-34.0); Mean Corpuscular Volume 93 fL (80-100); Mean Platelet Volume 10.1 fL (9.1-12.4); NEUTROPHILS ABSOLUTE AUTO 19.02 K/mm3 (1.96-9.15); NEUTROPHILS PERCENT AUTO 90 % (41-73); NRBC ABSOLUTE 0.02 K/mm3 (0.00-0.02); NRBC Auto 0.1 /100 WBC (0.0-0.2); Platelet Count 294 K/mm3 (150-400); RDW Coefficient Variation 13.2 % (11.7-14.2); RDW Standard Deviation 45.4 fL (35.1-46.3); Red Blood Cell Count 5.66 M/mm3 (4.30-5.90); White Blood Cell Count 21.22 K/mm3 (4.00-11.30)
[2021-02-17 05:26] LABS: Albumin, Blood 2.1 g/dL (3.4-5.0); Anion Gap 4 mmol/L (6-16); Blood Urea Nitrogen 21 mg/dL (8-24); Bun/Creatinine Ratio 31.6 (12.0-20.0); CO2, Blood 29 mmol/L (21-32); Calcium, Blood 8.5 mg/dL (8.5-10.1); Chloride, Blood 100 mmol/L (98-108); Creatinine, Blood 0.67 mg/dL (0.60-1.20); Glomerular Filtration Rate >60 (60-); Glucose, Blood 147 mg/dL (70-99); Magnesium, Blood 2.7 mg/dL (1.6-2.4); Phosphorus, Blood 3.3 mg/dL (2.5-4.9); Potassium, Blood 4.6 mmol/L (3.5-5.5); Sodium, Blood 133 mmol/L (136-145)
--- NOTE | 2021-02-17 06:53 | NUR ---
CREDIT AUTHORIZER SUMMARY PT RESTING, IN NAD. NO ACUTE CONCERNS TO REPORT OVERNIGHT; O2 SATS STABLE ON 45L, 75% O2 ON AIRVO. O2 SATS 90-94%. APPEARED TO SLEEP WELL OVERNIGHT. NO ACUTE NEEDS ASSESSED AT THIS TIME. CALL LIGHT, POSSESSIONS IN REACH, BED IN LOW AND LOCKED POSITION WITH ALARMS ON. WILL REPORT OFF TO ONCOMING RN.
--- NOTE | 2021-02-17 18:14 | NUR ---
SHIFT SUMMARY PT 1 PERSON ASSIST TO RECLINER CHAIR THIS MORNING FOR SPONGE BATH AND LINEN CHANGE. DID BECOME SOB WITH SLOW RECOVERY BUT WAS ABLE TO SIT IN CHAIR FOR SEVERAL HOURS. AIRVO AT 45L/70% AND REMAINS UNCHANGED DUE TO BLUE TOOTH OXIMETER CONSISTANTLY STAYING BETWEEN 88-94% AT REST IN BED. RESP DISTRESS NOTED ONLY WITH ACTIVITY. MD NOTIFIED OF PT REPORTING CONSTIPATION AND BOWEL CARE ORDERED.
[2021-02-18 05:52] LABS: Albumin, Blood 2.1 g/dL (3.4-5.0); Anion Gap 4 mmol/L (6-16); Blood Urea Nitrogen 19 mg/dL (8-24); Bun/Creatinine Ratio 29.9 (12.0-20.0); CO2, Blood 28 mmol/L (21-32); Calcium, Blood 8.3 mg/dL (8.5-10.1); Chloride, Blood 101 mmol/L (98-108); Creatinine, Blood 0.64 mg/dL (0.60-1.20); Glomerular Filtration Rate >60 (60-); Glucose, Blood 148 mg/dL (70-99); Phosphorus, Blood 3.2 mg/dL (2.5-4.9); Potassium, Blood 4.7 mmol/L (3.5-5.5); Sodium, Blood 133 mmol/L (136-145)
--- NOTE | 2021-02-18 06:25 | NUR ---
SHIFT SUMMARY PT IS A 56 Y/O MALE, ADMITTED FOR ACUTE HYPOXEMIC RESPIRATORY FAILURE R/T COVID-19. HE IS A&O X 4, SBA TO THE BATHROOM. NO C/O ACUTE PAIN, NAUSEA OR SOB. VITAL SIGNS STABLE. TELE SHOWED AFIB IN THE 70S. PT IS ON V60 BIPAP, ON 45L @ 75% O2. NO ACUTE CHANGES IN PT CONDITION NOTED DURING THE NIGHT. WILL CONTINUE TO MONITOR AND TREAT PER EMAR UNTIL HAND OFF TO DAY SHIFT RN.
--- NOTE | 2021-02-18 16:55 | NUR ---
PT DISCHARGED HOME @ 6835
--- NOTE | 2021-02-18 17:30 | NUR ---
SHIFT SUMMARY NO ACUTE CHANGES THIS SHIFT. PT DENIES PAIN OR SHORTNESS OF BREATH. WILL CONTINUE TO MONITOR.
--- NOTE | 2021-02-19 05:28 | NUR ---
SHIFT SUMMARY COVID 19+ PT ON AIRVO 45L AT 70%. ON CIPAP AT NIGHT. AAOX4. ON TELE. NO DISTRESS NOTED. NO SIGNIFICANT CHANGES DURING SHIFT
[2021-02-19 09:52] LABS: PCO2 Arterial 41.5 mmHg (35-45); pH Blood Arterial 7.47 (7.35-7.45)
--- NOTE | 2021-02-19 17:50 | NUR ---
PATIENT IS ALERT AND ORIENTED AND COOPERATIVE WITH CARE. TELE AFIB/AFLUTTER 108 BPM PER DIRECTOR OF ASSISTED LIVING. AIRVO 45L 70% FIO2. PATIENT HAD TWO LARGE BM'S TODAY. INDEPENDENT TO THE BSC. C/O RIGHT SIDE PAIN, MEDICATED PER EMAR. PATIENT PRONED THIS MORNING FOR ABOUT 20 MINUTES. HE HAS BEEN ENCOURAGED TO PRONE MULTIPLE TIMES THROUGHOUT THE DAY BUT HAS ONELY AGREED TO DO SO ONCE. WILL CONTINUE TO MONITOR
--- NOTE | 2021-02-20 05:11 | NUR ---
PACKAGING MATERIALS INSPECTOR SUMMARY PT A/O X4, SLEPT WELL TONIGHT. DENIES PAIN, NAUSEA. TELE RUNNING A. FIB IN THE LOW 100'S. CPAP OVERNIGHT SATTING IN THE MID 90'S. PT HAS NONPRODUCTIVE COUGH. USES CALL LIGHT APPROPRIATELY. CALL LIGHT WITHIN REACH, WILL CONTINUE TO MONITOR.
[2021-02-20 06:15] LABS: Anion Gap 5 mmol/L (6-16); Blood Urea Nitrogen 20 mg/dL (8-24); Bun/Creatinine Ratio 23.6 (12.0-20.0); CO2, Blood 33 mmol/L (21-32); Calcium, Blood 8.5 mg/dL (8.5-10.1); Chloride, Blood 95 mmol/L (98-108); Creatinine, Blood 0.85 mg/dL (0.60-1.20); Glomerular Filtration Rate >60 (60-); Glucose, Blood 133 mg/dL (70-99); Potassium, Blood 4.8 mmol/L (3.5-5.5); Sodium, Blood 133 mmol/L (136-145)
--- NOTE | 2021-02-20 07:22 | NUR ---
around 0630 tele made rn aware pt's hr a. fib sustaining in the 130's. pt has been avg a. fib in the 70's overnight. rn checked on pt, pt stated he was fine. hospitalist dr. puente made aware who said to give the 0900 metoprolol now. metoprolol given, report given to oncoming rn.
[2021-02-20 08:16] LABS: Hematocrit 50.1 % (37.0-53.0); Hemoglobin 16.8 g/dL (13.5-17.5); Mean Corpuscular HGB Conc 33.5 g/dL (31.5-36.5); Mean Corpuscular Volume 95 fL (80-100); Mean Platelet Volume 11.1 fL (9.1-12.4); Platelet Count 244 K/mm3 (150-400); RDW Coefficient Variation 13.6 % (11.7-14.2); RDW Standard Deviation 48.4 fL (35.1-46.3); Red Blood Cell Count 5.25 M/mm3 (4.30-5.90); White Blood Cell Count 35.01 K/mm3 (4.00-11.30)
--- NOTE | 2021-02-20 09:25 | NUR ---
RT AT THE BEDSIDE TO SWITCH THE PATIENT OVER TO BIPAP AT THIS TIME
--- NOTE | 2021-02-20 18:23 | NUR ---
PATIENT IS ALERT AND ORIENTED AND COOPERATIVE WITH CARE. THIS MORNING HE ATTEMPTED TO PRONE BUT BECAME ANXIOUS AND C/O 9/10 RIGHT SIDE PAIN. HE DID NOT TOLERATE LAYING PRONE AT ALL AND HE WAS DESATURATING ON THE AIRVO. THE PATIENT WAS ASSISTED SUPINE AND HIS HIS OXYGEN SATURATIONS WERE NOT RECOVERING WELL. RT WAS CALLED AND SHE PLACED THE PATIENT ON BIPAP AT THAT TIME. HE TOLERATED THE BIPAP WELL. AT [address] GALICIA ASKED THAT HE BE TRIALED ON THE AIRVO ONCE AGAIN WHICH HE HAS TOLERATED SINCE. THE PATIENT'S PAIN WAS MEDICATED PER EMAR. WILL CONTINUE TO MONITOR
[2021-02-21 04:35] LABS: PCO2 Arterial 49.6 mmHg (35-45); PO2 Arterial 60.2 mmHg (80-100); pH Blood Arterial 7.41 (7.35-7.45)
--- NOTE | 2021-02-21 05:10 | NUR ---
SOFTWARE TECHNICIAN SUMMARY PT A/O X4, MEDICATED FOR PAIN OVERNIGHT. PLACED ON BIPAP OVERNIGHT, USES AIRVO DURING THE DAY TIME. SATTING IN THE MID 90'S TONIGHT. TELE STATES PT BEEN A. FIB AVG IN THE 130'S TONIGHT. DR. SALINAS MADE AWARE AND ORDERED 5MG METOPROLOL IV X1 NOW. WILL GIVE THIS ONCE VERIFIED BY PHARMACY. CALL LIGHT WITHIN REACH, WILL CONTINUE TO MONITOR.
[2021-02-21 05:48] LABS: Anion Gap 5 mmol/L (6-16); Blood Urea Nitrogen 22 mg/dL (8-24); Bun/Creatinine Ratio 29.3 (12.0-20.0); CO2, Blood 32 mmol/L (21-32); Chloride, Blood 97 mmol/L (98-108); Creatinine, Blood 0.75 mg/dL (0.60-1.20); Glomerular Filtration Rate >60 (60-); Glucose, Blood 152 mg/dL (70-99); Phosphorus, Blood 3.6 mg/dL (2.5-4.9); Potassium, Blood 4.7 mmol/L (3.5-5.5); Sodium, Blood 134 mmol/L (136-145)
--- NOTE | 2021-02-21 10:38 | NUR ---
AT 0754 MAU MENEZES MEASURED VITAL SIGNS. AT 0813 THIS NURSE RECEIVED A CALL FROM DOMI FROM X-RAY THAT RESULTS WERE BACK FROM PORTABLE X-RAY AND THAT THE DOCTOR SHOULD BE NOTIFIED. AT 0814 DR. GALICIA WAS NOTIFIED THAT DOMI FROM X-RAY CALLED AND THAT HE STATED THERE WAS A "NASTY PNEUMO." DR GALICIA AGREED TO VIEW THE RESULTS. AT [address]20 DR. GALICIA NOTIFIED THIS NURSE THAT PATIENT WAS TO BE TRANSFERRED TO ICU. CHARGE NURSE NOTIFIED IMMEDIATELY. AT 0815 PATIENT USED CALL LIGHT TO NOTIFY PREPARED FOODS TEAM LEADER THAT HIS NOSE HURT FROM THE AIRVO. O2 SAT AT THAT TIME WAS 81%. RT CALLED IMMEDIATELY. PT ASSIGNED ROOM IN PCU AND REPORT GIVEN TO EMA GOODE RN AT 0830. RESPIRATORY THERAPIST, ALLYSON IN ROOM AT 0825. 0840, PT IN PCU-07 ROOM. EMA GOODE TO ASSUME CARE. CHARGE NURSE JHOAN SUN PRESENT FOR TRANSFER.
--- NOTE | 2021-02-21 11:00 | NUR ---
Patient arrived from PCU with Airvo 100%60L and NRM at 15L with sats mid 80%. Dr Potts had just placed chest tube in right upper chest and small pig tale and was clamped on arrival. PowerGlid in Left arm was bad and had difficult time getting another one started. Was able to get 18/10 Powerglide placed in GINI. New PleuraVac intiated to suction. He was intubated with Rocironium 100 mg, 20 mg Etomidate and 11 mls of Propofol. 8.0 ET placed and 26 at teeth and vent settings of 16/450/100/5 and shortly chaged to 25/400/100/10 and sast 88-95%. 16Fr Handley placed, bath given and linen changed.
[2021-02-21 11:05] LABS: BASOPHILS ABSOLUTE AUTO 0.04 K/mm3 (0.00-0.23); BASOPHILS PERCENT AUTO 0 % (0-2); EOSINOPHILS PERCENT AUTO 0 % (0-6); Hematocrit 47.7 % (37.0-53.0); Hemoglobin 16.2 g/dL (13.5-17.5); IMMATURE GRAN ABSOLUTE AUTO 0.22 K/mm3 (0.00-0.10); IMMATURE GRAN PERCENT AUTO 1 % (0-1); LYMPHOCYTES ABSOLUTE AUTO 1.07 K/mm3 (0.84-5.20); LYMPHOCYTES PERCENT AUTO 4 % (21-46); MONOCYTES ABSOLUTE AUTO 0.83 K/mm3 (0.16-1.47); MONOCYTES PERCENT AUTO 3 % (4-13); Mean Corpuscular HGB 32.2 pg (26.0-34.0); Mean Corpuscular Volume 95 fL (80-100); Mean Platelet Volume 10.2 fL (9.1-12.4); NEUTROPHILS ABSOLUTE AUTO 27.45 K/mm3 (1.96-9.15); NEUTROPHILS PERCENT AUTO 93 % (41-73); Platelet Count 222 K/mm3 (150-400); RDW Coefficient Variation 13.5 % (11.7-14.2); RDW Standard Deviation 47.5 fL (35.1-46.3); Red Blood Cell Count 5.03 M/mm3 (4.30-5.90); White Blood Cell Count 29.61 K/mm3 (4.00-11.30)
--- NOTE | 2021-02-21 11:14 | NUR ---
TRANSFER NOTED RECEIVED REPORT FROM [facility] AT APPROX 0830, PT TO ROOM AT APPROX 0840. PT ALERT, ORIENTED, ANXIOUS BUT COOPERATIVE WITH CARE. PT RESP RATE 40-50'S, ON AIRVO AT 45L 100% FIO2 WITH 15L NONREBREATHER IN PLACE ON TOP OF SPO2 86-91%. BREATHING LABORED AND UNEVEN, RIGHT SIDE APPEARS TO BE WORKING HARDER. RIGHT SIDE OF LUNGS DIMINISHED T/O; LEFT SIDE CLEAR UPPER LOBES AND DIM IN BASES. PER TELE AFIB 114 AT APRPOX 0850- RANGING FROM 110-150'S. BP STABLE, DIASTOLIC ELEVATED. ABD DISTENDED, FIRM, NONTENDER WITH HYPOACTIVE BOWEL TONES. SCAR TO LEFT UPPER CHEST NOTED, PT STATES DEFIBRILLATOR. DR TALAVERA TO BEDSIDE FOR CHEST TUBE PLACEMENT, PT GIVEN FENTANYL AND ATIVAN PER ORDERS. CHEST TUBE SET UP TO SUCTION WITH ORAGNE DRAINAGE NOTED. PT SPO2 DROPPED TO 70-80'S AFTER TUBE PLACEMENT, RESP RATE CONTINUED AT 30-50'S, RESP EFFORT INCREASE, USING ACESSORY MUSCLES, PLANS TO INTUBATE; TRANSFERED TO ROOM ICU 11 AT APPROX 1015.
[2021-02-21 11:35] LABS: Digoxin (Lanoxin) 0.58 ug/mL (0.80-2.00)
[2021-02-21 12:41] LABS: PCO2 Arterial 41.3 mmHg (35-45); PO2 Arterial 95.3 mmHg (80-100); pH Blood Arterial 7.44 (7.35-7.45)
[2021-02-21 14:09] LABS: Glucose, Body Fluid 59 mg/dL; Protein, Body Fluid 3.7 g/dL
[2021-02-21 14:40] LABS: Lactate Dehydrogenase, Body Fl 2443 U/L
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
[2021-02-21 17:45] LABS: Source, Urine Catheter
[2021-02-21 17:47] LABS: Appearance, Urine Clear (Clear); Bilirubin, Urine Neg (Neg); Blood, Urine 5+ (Neg); Color, Urine Yellow (P-Yellow); Glucose Qualitative, Urine Neg (Neg); Ketones, Urine Neg (Neg); Leukocyte Esterase, Urine Neg (Neg); Nitrite, Urine Neg (Neg); Protein, Urine Neg (Neg); Urobilinogen, Urine NORM (Normal)
[2021-02-21 17:53] LABS: White Blood Cells, Urine 0-2 /hpf (0-5)
[2021-02-21 17:54] LABS: Bacteria Few /hpf; Squamous Epithelial Cells Not Seen /hpf (Few)
--- NOTE | 2021-02-21 18:00 | NUR ---
Patient same vent settings as last note, Propofol at 50 mcg/kg/min, Levophed at 8 mcg/min, NS TKO and LR bolus . Chest tube continues to suction with 280 total for shift. Handley 800 ml sathya urine.
[2021-02-22 04:02] LABS: PCO2 Arterial 43.6 mmHg (35-45); PO2 Arterial 55.8 mmHg (80-100); pH Blood Arterial 7.47 (7.35-7.45)
[2021-02-22 04:43] LABS: BASOPHILS ABSOLUTE AUTO 0.04 K/mm3 (0.00-0.23); BASOPHILS PERCENT AUTO 0 % (0-2); EOSINOPHILS PERCENT AUTO 0 % (0-6); Hematocrit 32.4 % (37.0-53.0); Hemoglobin 10.8 g/dL (13.5-17.5); IMMATURE GRAN ABSOLUTE AUTO 0.26 K/mm3 (0.00-0.10); IMMATURE GRAN PERCENT AUTO 1 % (0-1); LYMPHOCYTES ABSOLUTE AUTO 0.96 K/mm3 (0.84-5.20); LYMPHOCYTES PERCENT AUTO 3 % (21-46); MONOCYTES ABSOLUTE AUTO 0.57 K/mm3 (0.16-1.47); MONOCYTES PERCENT AUTO 2 % (4-13); Mean Corpuscular HGB Conc 33.3 g/dL (31.5-36.5); Mean Corpuscular Volume 96 fL (80-100); Mean Platelet Volume 10.5 fL (9.1-12.4); NEUTROPHILS ABSOLUTE AUTO 27.28 K/mm3 (1.96-9.15); NEUTROPHILS PERCENT AUTO 94 % (41-73); Platelet Count 248 K/mm3 (150-400); RDW Coefficient Variation 13.6 % (11.7-14.2); RDW Standard Deviation 48.4 fL (35.1-46.3); Red Blood Cell Count 3.38 M/mm3 (4.30-5.90); White Blood Cell Count 29.11 K/mm3 (4.00-11.30)
[2021-02-22 05:24] LABS: Alanine Aminotransfer (ALT/SGP 49 U/L (12-78); Albumin, Blood 1.4 g/dL (3.4-5.0); Albumin/Globulin Ratio 0.3 (0.8-1.8); Alk Phos 74 U/L (50-136); Anion Gap 7 mmol/L (6-16); Aspartate Aminotrans (AST/SGOT 25 U/L (12-37); Blood Urea Nitrogen 19 mg/dL (8-24); Bun/Creatinine Ratio 32.6 (12.0-20.0); CO2, Blood 27 mmol/L (21-32); Calcium, Blood 8.4 mg/dL (8.5-10.1); Chloride, Blood 100 mmol/L (98-108); Creatinine, Blood 0.58 mg/dL (0.60-1.20); Globulin, Blood 4.5 g/dL (2.2-4.0); Glomerular Filtration Rate >60 (60-); Glucose, Blood 204 mg/dL (70-99); Magnesium, Blood 2.6 mg/dL (1.6-2.4); Phosphorus, Blood 2.4 mg/dL (2.5-4.9); Potassium, Blood 4.2 mmol/L (3.5-5.5); Sodium, Blood 134 mmol/L (136-145); Total Protein, Blood 5.9 g/dL (6.4-8.2)
--- NOTE | 2021-02-22 06:32 | NUR ---
END OF SHIFT SUMMARY: PATIENT TOLERATED VENT AND SEDATION OVERNIGHT AND WE WERE ABLE TO TITRATE DOWN FIO2. ACVC 25/400/10/65%. CHEST TUBE REMAINS TO SUCTION AND CONTINUES TO HAVE AN AIR LEAK. 20 OF SEROSANGUANOUS OUTPUT YELLOW/LIGHT PINK IN COLOR. HE IS STILL IN AFIB. RATE IS TYPICALLY 90-120S BUT WILL JUMP INTO 140S OCCAIONALLY. MINIMAL TITRATION TO LEVOPHED OVERNIGHT, IT REMAINS INFUSING AT 7-8. HE GETS REALLY AGITATED WHEN HE IS TURNED. HE WILL DESAT MINIMALLY AND START COUGHING A LOT. PROPOFOL INCREASED TO 55. FENTANYL ATTENDING AMBULATORY CARE NEVER STARTED BUT HE COULD USE IT TODAY IF NOT ADEQUATELY SEDATED WITH PROPOFOL. 2MG OF ATIVAN GIVEN X1. BLOOD CULTURE CAME BACK POSITIVE THIS MORNING WITH GRAM + COCCI/CLUSTERS. TEAM NOT NOTIFIED DUE TO BEING 0630. WILL TELL DAYSHIFT IN REPORT SO WE CAN CHANGE TREATMENT IF MECESSARY. PATIENT RESTRAINED. ADEQUATE URINE OUTPUT
--- NOTE | 2021-02-22 07:15 | NUR ---
Assumed care of pt at 0700. Report received from Anu MONTIEL. Drips: Propofol 55 mcg/kg/min Levophed 7 mcg/min Nimbex and fentanyl not in use ETT: 8.0 cm, 26 cm at lip Vent: ACVC 25/400/10/65%
--- NOTE | 2021-02-22 07:45 | NUR ---
HR high, averaging 130-145, atrial fibrillation. Plan to give ordered digoxin this morning.
--- NOTE | 2021-02-22 09:00 | NUR ---
Pt became hypotensive and required increase in levophed. Dr Potts notified. Plan to treat pt's high heart rate as BP stabilized. 5 mg metoprolol given IV. Reduced atrial fibrillation from rate averaging 130-145 to now averaging 115-130.
--- NOTE | 2021-02-22 13:05 | NUR ---
UPDATE Levophed is down to 4 mcg/min. BP stable, 96/56 (65) per arterial line. Chest tube dressing appears to have mositure droplet beneath it. Dr Potts notified for concern that it is condensation. Provider assessed site. Plan to continue to monitor.
[2021-02-22 13:26] LABS: Vancomycin, Trough 11.8 ug/mL (5.0-10.0)
[2021-02-22 14:15] LABS: Hematocrit 41.2 % (37.0-53.0); Hemoglobin 13.7 g/dL (13.5-17.5)
--- NOTE | 2021-02-22 17:45 | NUR ---
SUMMARY Neuro: Sedated with 55 mcg/kg/min propofol. Responsive to painful stimulus. Cough and gag present. Often coughs with repositioning. 3 mm pupils, PERRL. Musculoskeletal: Moves all extremities. In bilateral wrist restraints to prevent self-extubation. Mobility limited by cords, lines, tubes, sedation. Cardiac: Atrial fibrillation per monitor, averaging rate 115-125, but HR is often higher with repositioning, oral care, or other stimulus. Requiring 4 mcg/min levophed to maintain stable BP. 1+ radial, pedal, posttibial pulses. Capillary refill is greater than 3 seconds BUE and BLE. No edema. Arterial line to left radial artery for invasive BP measurement. Respiratory: 8.0 cm ETT, 26 cm ADRIEN. Vent settings ACVC 25/400/10/70%. SpO2 90% or greater. Lungs clear, dim in bases. Moderate amount of yellow sputum suctioned from ETT. GI: OG tube with 20 mL/hr Pivot 1.5 and 30 mL water flush Q4H. Maximum residual measured this shift was 50 mL. Hypoactive BT. Bowel care done this shift, but pt did not have BM. : Good amount of sathya urine output this shift. Skin: Unchanged from initial assessment Psychosocial: Ina, pt's spouse in to see patient today.
[2021-02-23 04:20] LABS: BASOPHILS ABSOLUTE AUTO 0.03 K/mm3 (0.00-0.23); BASOPHILS PERCENT AUTO 0 % (0-2); EOSINOPHILS PERCENT AUTO 0 % (0-6); Hematocrit 41.5 % (37.0-53.0); IMMATURE GRAN ABSOLUTE AUTO 0.13 K/mm3 (0.00-0.10); IMMATURE GRAN PERCENT AUTO 1 % (0-1); LYMPHOCYTES ABSOLUTE AUTO 0.82 K/mm3 (0.84-5.20); LYMPHOCYTES PERCENT AUTO 4 % (21-46); MONOCYTES ABSOLUTE AUTO 0.73 K/mm3 (0.16-1.47); MONOCYTES PERCENT AUTO 3 % (4-13); Mean Corpuscular HGB 31.9 pg (26.0-34.0); Mean Corpuscular HGB Conc 33.7 g/dL (31.5-36.5); Mean Corpuscular Volume 95 fL (80-100); Mean Platelet Volume 10.8 fL (9.1-12.4); NEUTROPHILS ABSOLUTE AUTO 20.34 K/mm3 (1.96-9.15); NEUTROPHILS PERCENT AUTO 92 % (41-73); Platelet Count 213 K/mm3 (150-400); RDW Coefficient Variation 13.4 % (11.7-14.2); RDW Standard Deviation 47.3 fL (35.1-46.3); Red Blood Cell Count 4.39 M/mm3 (4.30-5.90); White Blood Cell Count 22.05 K/mm3 (4.00-11.30)
[2021-02-23 04:37] LABS: Anion Gap 3 mmol/L (6-16); Blood Urea Nitrogen 20 mg/dL (8-24); Bun/Creatinine Ratio 38.5 (12.0-20.0); CO2, Blood 32 mmol/L (21-32); Calcium, Blood 8.1 mg/dL (8.5-10.1); Chloride, Blood 102 mmol/L (98-108); Creatinine, Blood 0.52 mg/dL (0.60-1.20); Glomerular Filtration Rate >60 (60-); Glucose, Blood 173 mg/dL (70-99); Magnesium, Blood 2.4 mg/dL (1.6-2.4); Phosphorus, Blood 2.6 mg/dL (2.5-4.9); Potassium, Blood 4.5 mmol/L (3.5-5.5); Sodium, Blood 137 mmol/L (136-145)
--- NOTE | 2021-02-23 06:17 | NUR ---
END OF SHIFT SUMAMRY: NO ACUTE CHANGES OVERNIGHT. ACVC 25/400/10/100%. HE WAS BUMPED TO 100% DUE TO LOW O2 SATS WHEN REPOSITIONING. HE IS ABOUT 87-89% WHEN LYING ON HIS R SIDE DUE TO THE R SIDED PNEUMO AND CHEST TUBE PLACEMENT BUT O2 IS 95-98% WHEN LYING ON HIS LEFT SIDE EXPECTED. CHEST TUBE CONTINUES TO HAVE AN AIR LEAK. -20 SUCTION. 10ML SEROSANGUONOUS FLUID OUT OF CT THIS SHIFT. PROPOFOL REMAINS AT 55. LEVO HAS BEEN TITRATED DOWN FROM 8 TO 4MCG/MIN. STILL IN AFIB 90-130S. HE WAS IN 150S AT START OF SHIFT AND I GAVE 50MCG OF FENTANYL. IT REALLY MADE HIM MORE COMFORTABLE AND HIS HR WAS IN 90-1 TEENS AFTERWARDS FOR SEVERAL HOURS. RESTRAINTS REMAIN ON. ADEQUATE URINE OUTPUT
[2021-02-23 21:30] LABS: Vancomycin, Trough 17.3 ug/mL (5.0-10.0)
[2021-02-24 04:01] LABS: BASOPHILS ABSOLUTE AUTO 0.02 K/mm3 (0.00-0.23); BASOPHILS PERCENT AUTO 0 % (0-2); EOSINOPHILS ABSOLUTE AUTO 0.01 K/mm3 (0.00-0.68); EOSINOPHILS PERCENT AUTO 0 % (0-6); Hematocrit 37.9 % (37.0-53.0); Hemoglobin 12.6 g/dL (13.5-17.5); IMMATURE GRAN ABSOLUTE AUTO 0.08 K/mm3 (0.00-0.10); IMMATURE GRAN PERCENT AUTO 1 % (0-1); LYMPHOCYTES ABSOLUTE AUTO 1.15 K/mm3 (0.84-5.20); LYMPHOCYTES PERCENT AUTO 7 % (21-46); MONOCYTES ABSOLUTE AUTO 0.52 K/mm3 (0.16-1.47); MONOCYTES PERCENT AUTO 3 % (4-13); Mean Corpuscular HGB 31.4 pg (26.0-34.0); Mean Corpuscular HGB Conc 33.2 g/dL (31.5-36.5); Mean Corpuscular Volume 95 fL (80-100); Mean Platelet Volume 10.2 fL (9.1-12.4); NEUTROPHILS ABSOLUTE AUTO 14.24 K/mm3 (1.96-9.15); NEUTROPHILS PERCENT AUTO 89 % (41-73); Platelet Count 184 K/mm3 (150-400); RDW Coefficient Variation 13.5 % (11.7-14.2); Red Blood Cell Count 4.01 M/mm3 (4.30-5.90); White Blood Cell Count 16.02 K/mm3 (4.00-11.30)
[2021-02-24 04:18] LABS: Anion Gap 4 mmol/L (6-16); Blood Urea Nitrogen 22 mg/dL (8-24); Bun/Creatinine Ratio 46.4 (12.0-20.0); CO2, Blood 31 mmol/L (21-32); Calcium, Blood 8.1 mg/dL (8.5-10.1); Chloride, Blood 102 mmol/L (98-108); Creatinine, Blood 0.47 mg/dL (0.60-1.20); Glomerular Filtration Rate >60 (60-); Glucose, Blood 163 mg/dL (70-99); Magnesium, Blood 2.6 mg/dL (1.6-2.4); Phosphorus, Blood 2.9 mg/dL (2.5-4.9); Potassium, Blood 4.4 mmol/L (3.5-5.5); Sodium, Blood 137 mmol/L (136-145)
--- NOTE | 2021-02-24 06:22 | NUR ---
NO ACUTE CHANGES OVERNIGHT. VENT SETTING UNCHANGED ACVC 25/400/10/70%. HE IS HAVING AN INCREASED AMOUNT OF SECRETIONS ORALLY. WILL WALK INTO ROOM AND PATIENT BLOWING BUBBLES AT TIMES OF COPIOUS THIN CLEAR SECRETIONS. REMAINS SEDATED WITH PROPOFOL AND LEVOPHED HAS REMAINED ON STANDBY THE ENTIRE SHIFT. PATIENT STILL IN AFIB BUT CONTROLLED IN 90-120S. PM METOPROLOL HELO DUE TO LOW BP. 12ML OUT OF CHEST TUBE. 500ML URINE OUTPUT THAT IS NOW TEA COLORED.
--- NOTE | 2021-02-24 07:33 | NUR ---
Received report from Trang RN and patient is sedared and intubated . He has 8.0 ET and 26 at lips with vent settings of 25/400/70/10 with sats >90%. He has OG in place infusing Pivot 1.5 at 20 ml/hr and 30 ml water flushes Q4. He has left radial art line for systolics low 100's. He has PICC line GINI dressing intact and site WNL's and is infusing Propofol at 45 mcg/kg/min and NS TKO. Chest tube to right upper chest with leak and has minimal output, dressing intact. He has 16 Fr lunsford draining tea colored urine. Patient arousable and withdrawls from oral care.
--- NOTE | 2021-02-24 11:30 | NUR ---
Reduced FiO2 to 65% and patient tolerating well. Patient was able to turn head and circuit came disconnected and sats dropped to 82% and came back up quickly. Started Levophed at 3 mcg/min for systolics in the 70's. Bilateral soft wrist restraints in placed for patient safety for lines and tubes. Gave lasix with am meds and seems to have increased urine
--- NOTE | 2021-02-24 13:44 | NUR ---
No changes to vent settings and patient has been resting over the last hour. Propofol increased to 50 mcg/kg/min. No other gtt stting changes. patient continues to have copius amounts of oral secretion clear and thick.
--- NOTE | 2021-02-24 16:01 | NUR ---
Review of EMR and case conferenced on current status, concerns and plan of care. Pal Care to remain available to family/staff for support and to help with updates or conversations re: goals of care, advanced care planning, pt's wishes.
--- NOTE | 2021-02-24 18:11 | NUR ---
Patient resting quietly. Patient had medium ,size formed stool. Vent settings 25/400/40/10, sats 97-100%. Propofol at 50 mcg/kg/min, Levophed at 3 mcg/min, NS TKO. Patient very sensitive to propofol being off and awakens easily. Handley output 1250 mls. Called RT to come see if able to turn peep down to 5.0. MAEW and strong.
--- NOTE | 2021-02-24 20:41 | NUR ---
ASSUMED CARE OF PT AT 1915. REPORT RECEIVED. PT PRESENTS IN BED. INTUBATED: AC 25, Tv 500, FIO2 40 PERCENT, PEEP 10. PT DOES NOT OPEN EYES TO CONTACT. MINIMINAL SECRETIONS FROM ETT. WILL COLLECT SAMPLE FOR PROCESSING. PT CONTINUES ON 50 MCG PROPOFOL FOR SEDATION. LEVOPHED INCREASED FROM 3 TO 4 MCG'S/MIN. ART LINE ZEROED, AND TRANSDUCER IN PROPER PLACE. WILL REVIEW CHART ADN PLAN OF CARE FOR THIS PT.
--- NOTE | 2021-02-25 00:12 | NUR ---
HAVE INCREASED PT'S FIO2 TO 50 PERCENT. SATURATIONS HAVE REMAINED UPPER 80 PERCENTS. CURRENTLY > 90 PERCENT. WILL EVALUATE ABILITY TO TITRATE DOWN. MINIMINAL SECRETIONS WITH SUCTIONING.
--- NOTE | 2021-02-25 03:27 | NUR ---
HAD PLACED LEVOPHED TO STANDBY. BLOOD PRESSURES DROP WITH MAP < 60. NEEDED TO RESTART LEVOPHED DRIP AT 3 MCG/MIN. SUBSEQUENTLY HAVE BROUGHT RATE TO 1 MCG/MIN. WILL TITRATE FURTHER ABLE.
[2021-02-25 04:53] LABS: BASOPHILS ABSOLUTE AUTO 0.02 K/mm3 (0.00-0.23); BASOPHILS PERCENT AUTO 0 % (0-2); EOSINOPHILS ABSOLUTE AUTO 0.01 K/mm3 (0.00-0.68); EOSINOPHILS PERCENT AUTO 0 % (0-6); Hematocrit 37.5 % (37.0-53.0); Hemoglobin 12.6 g/dL (13.5-17.5); IMMATURE GRAN ABSOLUTE AUTO 0.15 K/mm3 (0.00-0.10); IMMATURE GRAN PERCENT AUTO 1 % (0-1); LYMPHOCYTES ABSOLUTE AUTO 1.27 K/mm3 (0.84-5.20); LYMPHOCYTES PERCENT AUTO 8 % (21-46); MONOCYTES PERCENT AUTO 3 % (4-13); Mean Corpuscular HGB 31.9 pg (26.0-34.0); Mean Corpuscular HGB Conc 33.6 g/dL (31.5-36.5); Mean Corpuscular Volume 95 fL (80-100); Mean Platelet Volume 10.6 fL (9.1-12.4); NEUTROPHILS ABSOLUTE AUTO 14.18 K/mm3 (1.96-9.15); NEUTROPHILS PERCENT AUTO 89 % (41-73); Platelet Count 183 K/mm3 (150-400); RDW Coefficient Variation 13.5 % (11.7-14.2); RDW Standard Deviation 47.3 fL (35.1-46.3); Red Blood Cell Count 3.95 M/mm3 (4.30-5.90); White Blood Cell Count 16.03 K/mm3 (4.00-11.30)
[2021-02-25 05:13] LABS: Anion Gap 2 mmol/L (6-16); Blood Urea Nitrogen 26 mg/dL (8-24); Bun/Creatinine Ratio 46.6 (12.0-20.0); CO2, Blood 33 mmol/L (21-32); Calcium, Blood 8.3 mg/dL (8.5-10.1); Chloride, Blood 101 mmol/L (98-108); Creatinine, Blood 0.56 mg/dL (0.60-1.20); Glomerular Filtration Rate >60 (60-); Glucose, Blood 145 mg/dL (70-99); Magnesium, Blood 2.5 mg/dL (1.6-2.4); Phosphorus, Blood 3.3 mg/dL (2.5-4.9); Potassium, Blood 4.2 mmol/L (3.5-5.5); Sodium, Blood 136 mmol/L (136-145)
[2021-02-25 06:04] LABS: PCO2 Arterial 38.9 mmHg (35-45); PO2 Arterial 64.2 mmHg (80-100); pH Blood Arterial 7.51 (7.35-7.45)
--- NOTE | 2021-02-25 06:29 | NUR ---
PT CURRENTLY AT 1 MCG/MIN LEVOPHED TO MAINTAIN MAP> 65. HAVE DONE SEDATION VACATION THIS AM. PT BECOMES VERY ANXIOUS AND IS DIFFICULT TO CALM. PT SHAKES HIS HEAD BACK IN FORTH AND TONGUES AND CHEWS ON ETT. PT CURRENTLY BACK TO 50 MCG PORPOFOL /KG/MIN. PT HAS BEEN MEDICATED WITH 50 MCG FENTANYL THREE TIMES THIS SHIFT TO IMPROVE VENT TOLERANCE. PT HAS TOLERATED Q 2 HOUR TURNS IN BED. CHEST TUBE TO RIGHT SIDE REMAINS INTACT. DID NOT NOTE LEAK WILL CONTINUE TO MONTITOR PT, AND WILL REPORT OFF TO ONCOMING RN.
--- NOTE | 2021-02-25 20:00 | NUR ---
PT NEEDS INCREASE IN FIO2 TO 70 PERCENT. PT HAS SATURATION THAT HAVE BEEN IN 85-89 PERCENT. NOW MAINTAINS > 90 PERCENT. LEVOPHED WAS RESTARTED AT 1 MCG/MIN. HAS BEEN ABLE TO MAINTAIN WITH MAP > 60. PT MEDICATED WITH 50 MCG'S FENTANYL ONCE AND WITH 2 MG ATIVAN FOR VENT TOLERANCE. BOTH DEMONSTATE GOOD AFFECT. WILL REVIEW CHART AND PLAN OF CARE FOR THIS PT.
--- NOTE | 2021-02-25 22:46 | NUR ---
ASSUMED CARE OF PT AT 1915. REPORT RECEIVED. PT PRESENTS IN BED. INTUBATED AND VENT: AC, 18, Tv 400, FIO2 60 PERCENT, PEEP 10. PT MAINTAINS SATURATIONS 90 PERCENT. HAVE SUCTIONED ETT WITH RETURN OF YELLOW SECRETIONS. WILL REVIEW CHART AND PLAN OF CARE FOR THIS PT.
[2021-02-26 05:17] LABS: BASOPHILS ABSOLUTE AUTO 0.03 K/mm3 (0.00-0.23); BASOPHILS PERCENT AUTO 0 % (0-2); EOSINOPHILS ABSOLUTE AUTO 0.07 K/mm3 (0.00-0.68); EOSINOPHILS PERCENT AUTO 0 % (0-6); Hematocrit 37.9 % (37.0-53.0); Hemoglobin 12.7 g/dL (13.5-17.5); IMMATURE GRAN ABSOLUTE AUTO 0.27 K/mm3 (0.00-0.10); IMMATURE GRAN PERCENT AUTO 2 % (0-1); LYMPHOCYTES ABSOLUTE AUTO 1.59 K/mm3 (0.84-5.20); LYMPHOCYTES PERCENT AUTO 10 % (21-46); MONOCYTES ABSOLUTE AUTO 0.33 K/mm3 (0.16-1.47); MONOCYTES PERCENT AUTO 2 % (4-13); Mean Corpuscular HGB 31.6 pg (26.0-34.0); Mean Corpuscular HGB Conc 33.5 g/dL (31.5-36.5); Mean Corpuscular Volume 94 fL (80-100); Mean Platelet Volume 11.4 fL (9.1-12.4); NEUTROPHILS ABSOLUTE AUTO 13.94 K/mm3 (1.96-9.15); NEUTROPHILS PERCENT AUTO 86 % (41-73); Platelet Count 211 K/mm3 (150-400); RDW Coefficient Variation 13.5 % (11.7-14.2); RDW Standard Deviation 47.3 fL (35.1-46.3); Red Blood Cell Count 4.02 M/mm3 (4.30-5.90); White Blood Cell Count 16.23 K/mm3 (4.00-11.30)
[2021-02-26 05:36] LABS: Alanine Aminotransfer (ALT/SGP 123 U/L (12-78); Albumin, Blood 1.5 g/dL (3.4-5.0); Albumin/Globulin Ratio 0.4 (0.8-1.8); Alk Phos 63 U/L (50-136); Anion Gap 5 mmol/L (6-16); Aspartate Aminotrans (AST/SGOT 92 U/L (12-37); Bilirubin, Total 0.5 mg/dL (0.1-1.0); Blood Urea Nitrogen 22 mg/dL (8-24); Bun/Creatinine Ratio 42.1 (12.0-20.0); CO2, Blood 31 mmol/L (21-32); Calcium, Blood 8.4 mg/dL (8.5-10.1); Chloride, Blood 101 mmol/L (98-108); Creatinine, Blood 0.52 mg/dL (0.60-1.20); Globulin, Blood 4.2 g/dL (2.2-4.0); Glomerular Filtration Rate >60 (60-); Glucose, Blood 128 mg/dL (70-99); Magnesium, Blood 2.2 mg/dL (1.6-2.4); Phosphorus, Blood 3.3 mg/dL (2.5-4.9); Potassium, Blood 4.2 mmol/L (3.5-5.5); Sodium, Blood 137 mmol/L (136-145); Total Protein, Blood 5.7 g/dL (6.4-8.2)
--- NOTE | 2021-02-26 06:48 | NUR ---
PT HAS TOLERATED TURNS IN BED WELL. HAS NEEDED MINIMAL LEVOPHED AT 1 MCG/KG TO MAINTAIN MAP > 65. HAVE SUCTIONED PT WITH RETURN OF WHITE COLORED SECRETIONS. HAVE MEDICATED PT WITH FENTANYL 50 MCG'S APPROX THREE TIMES THIS SHIFT WITH DOSE OF ATIVAN TWICE SECONARY TO POOR VENT TOLERANCE. THESE DOSES HAVE BEEN AFFECTIVE. EVELIO REMAINS PATENT TO BROWN LIQUID STOOL. WILL CONTINUE TO MONITOR PT, AND WILL REPORT OFF TO ONCOMING RN.
--- NOTE | 2021-02-26 15:09 | NUR ---
Pt. is lying in bed His nurse in the room attending to his needs and I standing by the door offered prayers for the pt.
--- NOTE | 2021-02-26 19:15 | NUR ---
ASSUMPTION OF CARE PT REMAINS INTUBATED, VENT SETTINGS 18/400/10/90%. PT SEDATED WITH PROPOFOL 50MCG/KG/MIN, AND RECEIVING LEVOPHED 3MCG/MIN. TUBE FEED INFUSING AT GOAL RATE. CHEST TUBE REMAINS IN PLACE TO R ANTERIOR CHEST. OLD BLOODY DRAINAGE UNDER DRESSING NOTED. DRESSING INTACT. COLLECTION CHAMBER CONNECTED TO SUCTION WITH SEROSANGUANOUS DRAINAGE. FARIA REMAINS IN PLACE DRAINING YELLOW URINE. RECTAL TUBE REMAINS IN PLACE WITH BROWN LOOSE STOOL. SEE SHIFT ASSESSMENT.
[2021-02-27 04:53] LABS: BASOPHILS ABSOLUTE AUTO 0.03 K/mm3 (0.00-0.23); BASOPHILS PERCENT AUTO 0 % (0-2); EOSINOPHILS ABSOLUTE AUTO 0.03 K/mm3 (0.00-0.68); EOSINOPHILS PERCENT AUTO 0 % (0-6); Hemoglobin 12.8 g/dL (13.5-17.5); IMMATURE GRAN ABSOLUTE AUTO 0.28 K/mm3 (0.00-0.10); IMMATURE GRAN PERCENT AUTO 2 % (0-1); LYMPHOCYTES ABSOLUTE AUTO 1.98 K/mm3 (0.84-5.20); LYMPHOCYTES PERCENT AUTO 13 % (21-46); MONOCYTES ABSOLUTE AUTO 0.41 K/mm3 (0.16-1.47); MONOCYTES PERCENT AUTO 3 % (4-13); Mean Corpuscular HGB 31.7 pg (26.0-34.0); Mean Corpuscular HGB Conc 33.7 g/dL (31.5-36.5); Mean Corpuscular Volume 94 fL (80-100); Mean Platelet Volume 11.3 fL (9.1-12.4); NEUTROPHILS ABSOLUTE AUTO 12.43 K/mm3 (1.96-9.15); NEUTROPHILS PERCENT AUTO 82 % (41-73); Platelet Count 231 K/mm3 (150-400); RDW Coefficient Variation 13.5 % (11.7-14.2); RDW Standard Deviation 46.8 fL (35.1-46.3); Red Blood Cell Count 4.04 M/mm3 (4.30-5.90); White Blood Cell Count 15.16 K/mm3 (4.00-11.30)
[2021-02-27 05:13] LABS: Alanine Aminotransfer (ALT/SGP 80 U/L (12-78); Albumin, Blood 1.5 g/dL (3.4-5.0); Albumin/Globulin Ratio 0.3 (0.8-1.8); Alk Phos 66 U/L (50-136); Anion Gap 3 mmol/L (6-16); Aspartate Aminotrans (AST/SGOT 42 U/L (12-37); Bilirubin, Total 0.4 mg/dL (0.1-1.0); Blood Urea Nitrogen 22 mg/dL (8-24); Bun/Creatinine Ratio 41.5 (12.0-20.0); CO2, Blood 31 mmol/L (21-32); Calcium, Blood 8.4 mg/dL (8.5-10.1); Chloride, Blood 102 mmol/L (98-108); Creatinine, Blood 0.53 mg/dL (0.60-1.20); Globulin, Blood 4.6 g/dL (2.2-4.0); Glomerular Filtration Rate >60 (60-); Glucose, Blood 168 mg/dL (70-99); Magnesium, Blood 2.1 mg/dL (1.6-2.4); Phosphorus, Blood 3.3 mg/dL (2.5-4.9); Potassium, Blood 4.1 mmol/L (3.5-5.5); Sodium, Blood 136 mmol/L (136-145); Total Protein, Blood 6.1 g/dL (6.4-8.2)
--- NOTE | 2021-02-27 06:32 | NUR ---
SHIFT SUMMARY PT REMAINS INTUBATED, VENT SETTINGS 18/400/10/90%. PT RECEIVING PROPOFOL 50MCG/KG/MIN AND LEVOPHED 3MCG/MIN. TUBE FEEDING CONTINUES TO INFUSE AT GOAL RATE. R ANTERIOR CHEST TUBE REMAINS IN PLACE CONNECTED TO SUCTION. NO DRAINAGE THIS SHIFT. PT HAS BEEN IN AFIB THROUGHOUT SHIFT WITH HR 90S-120S. SHIFT OUTPUT OF 750ML OF URINE. 150ML OUTPUT FROM RECTAL TUBE. L RADIAL ART LINE REMAINS IN PLACE. WILL REPORT TO ONCOMING RN.
--- NOTE | 2021-02-27 19:45 | NUR ---
ASSUMPTION OF CARE PT REMAINS INTUBATED, VENT SETTINGS 16/400/10/70%. PT RECEIVING PROPOFOL 60MCG/KG/MIN. PT APPEARS COMFORTABLY SEDATED. NEW R CHEST TUBE INSERTED AT END OF DAY SHIFT. DRESSING IS INTACT, BLOODY DRAINAGE IN TUBING AND COLLECTION CHAMBER CONNECTED TO SUCTION. FARIA AND RECTAL TUBE REMAIN IN PLACE. SEE SHIFT ASSESSMENT.
[2021-02-28 04:19] LABS: BASOPHILS ABSOLUTE AUTO 0.04 K/mm3 (0.00-0.23); BASOPHILS PERCENT AUTO 0 % (0-2); EOSINOPHILS PERCENT AUTO 6 % (0-6); Hematocrit 34.6 % (37.0-53.0); Hemoglobin 11.7 g/dL (13.5-17.5); IMMATURE GRAN ABSOLUTE AUTO 0.38 K/mm3 (0.00-0.10); IMMATURE GRAN PERCENT AUTO 3 % (0-1); LYMPHOCYTES ABSOLUTE AUTO 3.24 K/mm3 (0.84-5.20); LYMPHOCYTES PERCENT AUTO 23 % (21-46); MONOCYTES ABSOLUTE AUTO 0.42 K/mm3 (0.16-1.47); MONOCYTES PERCENT AUTO 3 % (4-13); Mean Corpuscular HGB 32.1 pg (26.0-34.0); Mean Corpuscular HGB Conc 33.8 g/dL (31.5-36.5); Mean Corpuscular Volume 95 fL (80-100); Mean Platelet Volume 11.2 fL (9.1-12.4); NEUTROPHILS ABSOLUTE AUTO 9.44 K/mm3 (1.96-9.15); NEUTROPHILS PERCENT AUTO 66 % (41-73); Platelet Count 219 K/mm3 (150-400); RDW Coefficient Variation 13.7 % (11.7-14.2); RDW Standard Deviation 47.8 fL (35.1-46.3); Red Blood Cell Count 3.65 M/mm3 (4.30-5.90); White Blood Cell Count 14.42 K/mm3 (4.00-11.30)
[2021-02-28 04:40] LABS: Albumin, Blood 2.1 g/dL (3.4-5.0); Anion Gap 3 mmol/L (6-16); Blood Urea Nitrogen 20 mg/dL (8-24); Bun/Creatinine Ratio 43.7 (12.0-20.0); CO2, Blood 33 mmol/L (21-32); Calcium, Blood 8.4 mg/dL (8.5-10.1); Chloride, Blood 102 mmol/L (98-108); Creatinine, Blood 0.46 mg/dL (0.60-1.20); Glomerular Filtration Rate >60 (60-); Glucose, Blood 101 mg/dL (70-99); Phosphorus, Blood 2.5 mg/dL (2.5-4.9); Potassium, Blood 3.4 mmol/L (3.5-5.5); Sodium, Blood 138 mmol/L (136-145)
--- NOTE | 2021-02-28 06:15 | NUR ---
SPOKE WITH DR. PORTER ABOUT PT DESATING TO 80% AND THAT PT IS AFIB RVR WITH HR 120-130'S. TOLD DR. PORTER THAT'S PT'S CXR WAS WORSE THIS AM AND THAT THERE LOOKS TO BE SUBQ EMPHYSEMA ON THE R THAT CAN'T BE FELT. STATES THAT HE WANTS US TO INCREASE THE SEDATION TO HELP HIM RELAX AND STOP COUGHING AND TO ALSO DO A REPEAT CXR IN 5 HRS TO SEE IF THE EMPHYSEMA IS GETTING WORSE.
--- NOTE | 2021-02-28 06:40 | NUR ---
SHIFT SUMMARY PT REMAINS INTUBATED. VENT SETTINGS 18/400/10/100%. PT WAS ON 70% FIO2 MOST OF NIGHT AND EARLY AM REQUIRED INCREASED O2 NEED. PT RECEIVING PROPOFOL 60MCG/KG/MIN AND LEVOPHED 5MCG/MIN. PT HAD OCCASIONAL COUGHING EPISODES THROUGHOUT NIGHT BUT MAINTAINED SPO2 IN 80S-90S. DURING END OF SHIFT PT BECAME TACHYPNEIC WITH ABNORMAL BREATHING PATTERN, COUGHING FREQUENTLY AND DECREASING OXYGEN SATURATION. FIO2 INCREASED, AND DR PORTER CALLED. MEDICATED PER ORDERS. PT IS NOW HYPOTENSIVE WITH SBP IN 80S. R LUNG IS VERY DIMINISHED THROUGHOUT, L LUNG IS COARSE AND DIM IN BASE. URINE OUTPUT FOR SHIFT IS 750ML. RECTAL TUBE OUTPUT 100ML. CHEST TUBE REMAINS IN PLACE. SHIFT OUTPUT OF 130ML OF BLOOD TINGED DRAINAGE. WILL REPORT TO ONCOMING RN.
[2021-02-28 18:46] LABS: Anion Gap 1 mmol/L (6-16); Blood Urea Nitrogen 19 mg/dL (8-24); Bun/Creatinine Ratio 39.3 (12.0-20.0); CO2, Blood 35 mmol/L (21-32); Calcium, Blood 8.3 mg/dL (8.5-10.1); Chloride, Blood 105 mmol/L (98-108); Creatinine, Blood 0.48 mg/dL (0.60-1.20); Glomerular Filtration Rate >60 (60-); Glucose, Blood 153 mg/dL (70-99); Magnesium, Blood 2.1 mg/dL (1.6-2.4); Potassium, Blood 3.7 mmol/L (3.5-5.5); Sodium, Blood 141 mmol/L (136-145)
--- NOTE | 2021-02-28 22:13 | NUR ---
ASSUMED CARE PATIENT LYING IN BED INTUBATED AND SEDATED; PROPOFOL @ 40MCG/KG/MIN, VERSED @ 2MG/HR, LEVOHPED @ 5MCG/MIN, NIMBEX @ 2MCG/KG/MIN, AND FENTANYL @ 100MCG/HR. VENT SETTINGS AC/VC 18/400/15/50% TOELRATATING WELL W/ RR 18 AND SPO2 GREATER THAN 90%. TOF 4/4 AND BIS MONITOR 30'S-40'S. CHEST TUBE PATENT AND DRAINING SEROSANGUINOUS FLUID, FARIA DRAINING YELLOW CLEAR URINE, AND AND RECTAL TUBE DRAINING BROWN TACKY STOOL. OGT INF PIVOT @ 20ML/HR W/ 30ML Q4H WATER FLUSHES.
[2021-03-01 03:29] LABS: BASOPHILS ABSOLUTE AUTO 0.03 K/mm3 (0.00-0.23); BASOPHILS PERCENT AUTO 0 % (0-2); EOSINOPHILS ABSOLUTE AUTO 0.76 K/mm3 (0.00-0.68); EOSINOPHILS PERCENT AUTO 6 % (0-6); Hematocrit 35.9 % (37.0-53.0); Hemoglobin 11.9 g/dL (13.5-17.5); IMMATURE GRAN ABSOLUTE AUTO 0.22 K/mm3 (0.00-0.10); IMMATURE GRAN PERCENT AUTO 2 % (0-1); LYMPHOCYTES PERCENT AUTO 22 % (21-46); MONOCYTES ABSOLUTE AUTO 0.51 K/mm3 (0.16-1.47); MONOCYTES PERCENT AUTO 4 % (4-13); Mean Corpuscular HGB 31.8 pg (26.0-34.0); Mean Corpuscular HGB Conc 33.1 g/dL (31.5-36.5); Mean Corpuscular Volume 96 fL (80-100); Mean Platelet Volume 10.5 fL (9.1-12.4); NEUTROPHILS ABSOLUTE AUTO 9.03 K/mm3 (1.96-9.15); NEUTROPHILS PERCENT AUTO 67 % (41-73); Platelet Count 227 K/mm3 (150-400); RDW Coefficient Variation 13.9 % (11.7-14.2); RDW Standard Deviation 49.3 fL (35.1-46.3); Red Blood Cell Count 3.74 M/mm3 (4.30-5.90); White Blood Cell Count 13.45 K/mm3 (4.00-11.30)
[2021-03-01 03:44] LABS: Albumin, Blood 1.8 g/dL (3.4-5.0); Anion Gap 1 mmol/L (6-16); Blood Urea Nitrogen 15 mg/dL (8-24); Bun/Creatinine Ratio 34.5 (12.0-20.0); CO2, Blood 36 mmol/L (21-32); Calcium, Blood 8.3 mg/dL (8.5-10.1); Chloride, Blood 106 mmol/L (98-108); Creatinine, Blood 0.44 mg/dL (0.60-1.20); Glomerular Filtration Rate >60 (60-); Glucose, Blood 116 mg/dL (70-99); Phosphorus, Blood 2.4 mg/dL (2.5-4.9); Potassium, Blood 3.2 mmol/L (3.5-5.5); Sodium, Blood 143 mmol/L (136-145)
--- NOTE | 2021-03-01 06:36 | NUR ---
SHIFT SUMMARY PATIENT REMAINED INTUBATED AND SEDATED THROUGHOUT SHIFT. VERSED IS ON SB, LEVOPHED DECREASED TO 3MCG/MIN; PROPOFOL @ 40MCG/KG/MIN AND NIMBEX @ 2MCG/KG/MIN. PATIENT REMAINED ON AC/VC 18/400/15/50% TOELRATED WELL W/ SPO2 IN MID 90'S AND RR @ 18. POSSIBLE WORSENING CREPITUS ON RT SIDE CHEST SEEN BY INCREASE IN SIZE OF RT PECTORAL AND CHEST WALL; AWAITING CHEST XR RESULTS. NO OTHER MAJOR CHANGES DURING SHIFT.
--- NOTE | 2021-03-01 15:27 | NUR ---
Pt. in vent prayed for him
--- NOTE | 2021-03-01 19:30 | NUR ---
ASSUMED CARE PATIENT LYING IN BED INTUBATED, SEDATED, AND PARALYZED. SEE FLOWSHEET FOR GTT RATES OF PROPOFOL, VERSED, FENTANYL, NIMBEX, CARDIZEM, AND LEVOPHED. ART LINE PICC LINE, RECTAL TUBE, AND FARIA CATH ALL IN PLACE. VENT SETTING AC/VC 18/350/15/50% TOLERATING WELL W/ SPO2 IN THE 90'S AND RR 18.
[2021-03-02 04:35] LABS: BASOPHILS ABSOLUTE AUTO 0.04 K/mm3 (0.00-0.23); BASOPHILS PERCENT AUTO 0 % (0-2); EOSINOPHILS ABSOLUTE AUTO 0.37 K/mm3 (0.00-0.68); EOSINOPHILS PERCENT AUTO 3 % (0-6); Hematocrit 37.7 % (37.0-53.0); IMMATURE GRAN ABSOLUTE AUTO 0.23 K/mm3 (0.00-0.10); IMMATURE GRAN PERCENT AUTO 2 % (0-1); LYMPHOCYTES ABSOLUTE AUTO 2.57 K/mm3 (0.84-5.20); LYMPHOCYTES PERCENT AUTO 18 % (21-46); MONOCYTES ABSOLUTE AUTO 0.76 K/mm3 (0.16-1.47); MONOCYTES PERCENT AUTO 5 % (4-13); Mean Corpuscular HGB 31.8 pg (26.0-34.0); Mean Corpuscular HGB Conc 31.8 g/dL (31.5-36.5); Mean Corpuscular Volume 100 fL (80-100); Mean Platelet Volume 11.2 fL (9.1-12.4); NEUTROPHILS ABSOLUTE AUTO 10.15 K/mm3 (1.96-9.15); NEUTROPHILS PERCENT AUTO 72 % (41-73); NRBC ABSOLUTE 0.03 K/mm3 (0.00-0.02); NRBC Auto 0.2 /100 WBC (0.0-0.2); Platelet Count 265 K/mm3 (150-400); RDW Standard Deviation 51.4 fL (35.1-46.3); Red Blood Cell Count 3.77 M/mm3 (4.30-5.90); White Blood Cell Count 14.12 K/mm3 (4.00-11.30)
[2021-03-02 04:55] LABS: Albumin, Blood 1.8 g/dL (3.4-5.0); Anion Gap 0 mmol/L (6-16); Blood Urea Nitrogen 17 mg/dL (8-24); Bun/Creatinine Ratio 36.5 (12.0-20.0); CO2, Blood 36 mmol/L (21-32); Calcium, Blood 8.3 mg/dL (8.5-10.1); Chloride, Blood 103 mmol/L (98-108); Creatinine, Blood 0.47 mg/dL (0.60-1.20); Glomerular Filtration Rate >60 (60-); Glucose, Blood 109 mg/dL (70-99); Phosphorus, Blood 2.3 mg/dL (2.5-4.9); Potassium, Blood 4.2 mmol/L (3.5-5.5); Sodium, Blood 139 mmol/L (136-145)
--- NOTE | 2021-03-02 06:28 | NUR ---
SHIFT SUMMARY PATIENT REMAINED INTUBATED, SEDATED, AND PARALYZED THROUGHOUT SHIFT. LEVOPHED WAS PLACED ON SB FOR MOST OF SHIFT W/ SBP MAINTAINING 100'S-130'S. NIMBEX INCREASED TO 2MCG/KG/MIN; VERSED STAYED @ 2MG/KG/MIN AND PROPOFOL @ 30MCG/KG/MIN. AT 0400 PATIENT BEGAN HAVING HIGH PEAK PRESSURES WITH SLIGHT COUGH; LEADING TO INCREASE IN NIMBEX AND SUCTIONING OF THICK WHITE SECRETIONS FROM ETT. NO OTHER MAJOR CHANGES DURING SHIFT.
--- NOTE | 2021-03-02 08:30 | NUR ---
SHIFT ASSESSMENT PATIENT INTUBATED, SEDATED, AND PARALZYED. BIS 30S TO 40S. TOF 4/4; PATIENT IS TOLERATING VENTILATOR AT THIS TIME. PUPILS FIXED. SCLERAL EDEMA NOTED. PATIENT AFEBRILE. NO SIGNS OF PAIN NOTED. PATIENT ON VENT SETTINGS OF AC/VC 18, TV 350, PEEP 15 AND 50% FIO2. LUNGS COARSE THROUGHOUT. NO SPUTUM NOTED WITH ETT SUCTIONING. CHEST TUBE TO R LATERAL CHEST. CHEST TUBE TO WALL SUCTION. NO AIR LEAK OR CREPITUS NOTED. CHEST TUBE DRAINING SEROSANGUINOUS FLUID. PATIENT IN A. FIB, HR 90S TO LOW 100S. SBP LOW 100S TO 140S. LEVOPHED OFF. 1+ EDEMA NOTED IN BUES AND BLES. 2+ EDEMA TO R HAND. SKIN MOTTLED FROM ELBOWS TO HANDS AND FROM KNEES TO FEET. EXTREMITIES DUSKY AND COOL. CAP REFILL GREATER THAN 3 SECONDS IN R FOOT. ABDOMEN SEVERELY DISTENDED, SOFT, WITH NORMOACTIVE BOWEL SOUNDS NOTED. RECTAL TUBE IN PLACE DRAINING BROWN, LIQUID STOOL. OG IN PLACE WITH PIVOT 1.5 INFUSING AT GOAL RATE OF 20 MLS/ HOUR WITH 30 ML WATER FLUSH Q4H. RESIDUAL OF ZERO THIS AM. FARIA DRAINING YELLOW COLORED URINE. SCATTERED BRUISES NOTED TO SKIN WITH LARGE BRUISE NOTED TO L LOWER ABD. ARTERIAL LINE TO L RADIAL. PROPOFOL INFUSING AT 25 MCG/ KG/ MINUTE, VERSED AT 2 MG/ HOUR, NIMBEX AT 2 MCG/ KG/ MINUTE, CARDIZEM AT 5 MG/ HOUR, LEVO OFF, FENTANYL DRIP AT 75 MCG/ HOUR. BED LOW. WILL CONTINUE TO MONITOR PATIENT FREQUENTLY THROUGHOUT SHIFT.
--- NOTE | 2021-03-02 09:00 | NUR ---
DR. MURCIA UPDATED ON PATIENT STATUS. INFORMED THAT WBCS INCREASING. INFORMED THAT PHOS LOW AT 2.3. INFORMED THAT PATIENT HAS BEEN HAVING SOME HIGH PEAK PRESSURES ON VENT. INFORMED THAT TOF 4/4, BIS 30S TO 40S. STATED NO SEDATION VACATION THIS SHIFT BUT COULD TRY TO TITRATE NIMBEX DOWN AND SEE HOW PATIENT TOLERATES. NO OTHER ORDERS OBTAINED. WILL CONTINUE TO MONITOR.
--- NOTE | 2021-03-02 12:30 | NUR ---
PATIENT AFEBRILE. NIMBEX DECREASED. TOF 4/4. BIS IN THE 40S. PATIENT REMAINS ON SAME VENT SETTINGS. LUNGS REMAIN COARSE. NO SPUTUM BEING SUCTIONED FROM ETT. OCCASIONAL AIR LEAK NOTED FROM CHEST TUBE. HR LOW 100S TO 120S. CARDIZEM RESTARTED AT 10 MG/ HOUR. SBP 130S TO 150S. BLOOD SUGAR 131; NO COVERAGE INDICATED. NO OTHER ACUTE CHANGES TO NOTE ON AT THIS TIME. WILL CONTINUE TO MONITOR.
--- NOTE | 2021-03-02 16:30 | NUR ---
PATIENT AFEBRILE. NIMBEX STARTED AGAIN PATIENT CONTINUED TO COUGH ON VENT WHEN NIMBEX ON SB. NIMBEX AT 1 MCG/ KG/ MINUTE. PROPOFOL AT 15 MCG/ KG/ MINUTE TO KEEP BIS 40S TO 60S. HR 80S TO 90S. SBP 80S TO 1-TEENS. CARDIZEM DRIP AT 5 MG/ HOUR. PEEP DECREASED TO 14 AND FIO2 DECREASED TO 40%. TF GOAL INCREASED TO 25 MLS/ HOUR. NO OTHER ACUTE CHANGES TO NOTE ON AT THIS TIME. WILL CONTINUE TO MONITOR.
--- NOTE | 2021-03-02 18:28 | NUR ---
SHIFT SUMMARY PATIENT REMAINED INTUBATED AND SEDATED. PATIENT TITRATED TO OFF ON NIMBEX BUT HAD TO BE PLACED BACK ON SHORT TIME AFTER BECAUSE OF CONTINUED PATIENT COUGHING ON VENTILATOR. BIS MOSTLY 30S TO 60S. TOF REMAINED 4/4. PATIENT REMAINED AFEBRILE. NO SIGNS OF PAIN NOTED THIS SHIFT. PATIENT ON AC 18, TV 350, PEEP DECREASED FROM 15 TO 14, AND FIO2 DECREASED FROM 50 TO 40%. LUNGS REMAINED COARSE THROUGHOUT SHIFT. NO SPUTUM WITH SUCTIONING. CHEST TUBE REMAINED TO R LATERAL CHEST WALL. 50 ML SEROSANGUINOUS OUTPUT FROM CHEST TUBE. OCCASIONAL AIR LEAK NOTED. NO CREPITUS NOTED. PATIENT REMAINED IN A. FIB, HR RANGED FROM 50S TO 120S. SBP 80S TO 150S. CARDIZEM SB TO 10 MG/ HOUR THIS SHIFT. CARDIZEM CURRENTLY ON SB. SCHEDULED METOPROLOL PT DECREASED IN DOSE BUT INCREASED TO Q6H. PATIENT HR DECREASED TO 50S AFTER AM METOPROLOL AND DIGOXIN TOOK EFFECT. LEVOPHED REMAINED OFF. ABDOMEN REMAINED DISTENDED, BUT SOFT. RECTAL TUBE DRAINED 300 MLS OF BROWN, LIQUID STOOL. PIVOT 1.5 INCREASED TO NEW GOAL RATE OF 25 MLS/ HOUR. RESIDUALS ZERO. BLOOD SUGARS RANGED FROM 130S TO 140S. FARIA DRAINED 950 MLS OF YELLOW COLORED URINE. PATIENT RECEIVED 20 MG IV LASIX THIS SHIFT. PATIENT REPOSITIONED T/O SHIFT. PATIENT RECEIVED 10 MM KPHOS THIS SHIFT FOR AM PHOS OF 2.3. PROPOFOL AT 15 MCG/ KG/ MINUTE, VERSED AT 2 MG/ HR, NIMBEX AT 1 MCG/ KG/ MINUTE, CARDIZEM ON SB, LEVO ON SB, FENTANYL AT 75 MCG/ HOUR. PATIENT'S FRIEND, MATY, IN TO VISIT PATIENT THIS SHIFT. REPORT WILL BE GIVEN TO ASSUMING LOGISTICS DIRECTOR NURSE SHORTLY.
[2021-03-03 04:20] LABS: BASOPHILS ABSOLUTE AUTO 0.02 K/mm3 (0.00-0.23); BASOPHILS PERCENT AUTO 0 % (0-2); EOSINOPHILS ABSOLUTE AUTO 0.04 K/mm3 (0.00-0.68); EOSINOPHILS PERCENT AUTO 0 % (0-6); Hematocrit 33.2 % (37.0-53.0); Hemoglobin 10.6 g/dL (13.5-17.5); IMMATURE GRAN ABSOLUTE AUTO 0.13 K/mm3 (0.00-0.10); IMMATURE GRAN PERCENT AUTO 1 % (0-1); LYMPHOCYTES ABSOLUTE AUTO 1.98 K/mm3 (0.84-5.20); LYMPHOCYTES PERCENT AUTO 16 % (21-46); MONOCYTES ABSOLUTE AUTO 0.81 K/mm3 (0.16-1.47); MONOCYTES PERCENT AUTO 6 % (4-13); Mean Corpuscular HGB 31.6 pg (26.0-34.0); Mean Corpuscular HGB Conc 31.9 g/dL (31.5-36.5); Mean Corpuscular Volume 99 fL (80-100); Mean Platelet Volume 10.9 fL (9.1-12.4); NEUTROPHILS ABSOLUTE AUTO 9.66 K/mm3 (1.96-9.15); NEUTROPHILS PERCENT AUTO 76 % (41-73); NRBC ABSOLUTE 0.03 K/mm3 (0.00-0.02); NRBC Auto 0.2 /100 WBC (0.0-0.2); Platelet Count 263 K/mm3 (150-400); RDW Coefficient Variation 13.9 % (11.7-14.2); RDW Standard Deviation 50.7 fL (35.1-46.3); Red Blood Cell Count 3.35 M/mm3 (4.30-5.90); White Blood Cell Count 12.64 K/mm3 (4.00-11.30)
[2021-03-03 04:50] LABS: Albumin, Blood 1.5 g/dL (3.4-5.0); Anion Gap 2 mmol/L (6-16); Blood Urea Nitrogen 21 mg/dL (8-24); Bun/Creatinine Ratio 48.5 (12.0-20.0); CO2, Blood 35 mmol/L (21-32); Calcium, Blood 8.1 mg/dL (8.5-10.1); Chloride, Blood 103 mmol/L (98-108); Creatinine, Blood 0.43 mg/dL (0.60-1.20); Digoxin (Lanoxin) 0.63 ug/mL (0.80-2.00); Glomerular Filtration Rate >60 (60-); Glucose, Blood 123 mg/dL (70-99); Magnesium, Blood 2.2 mg/dL (1.6-2.4); Phosphorus, Blood 2.2 mg/dL (2.5-4.9); Potassium, Blood 4.6 mmol/L (3.5-5.5); Sodium, Blood 140 mmol/L (136-145)
--- NOTE | 2021-03-03 06:27 | NUR ---
END OF SHIFT SUMMARY: PATIENT HAS REMAINED INTUBATED/SEDATED & PARALYZED. CARDIZEM ON AT 5-10 DUE TO AFIB AND HR IN 70-140S. SBP HAS ALSO BEEN ANYWHERE BETWEEN 100-160 AND DOES NOT CORRELATE WITH BP CUFF READING. THE CUFF IS ALWAYS ABOUT 20-30 POINTS HIGHER OR LOWER SO A LINE HAS REMAINED INTACT AND WORKING APPROPRIATELY ALTHOUGH IT HAS BEEN IN >8 DAYS. NO VENT CHANGES OVERNIGHT AND VERY MINIMAL SECRETIONS. R LATERAL CHEST TUBE REMAINS INTACT AND DRAINING SEROSANGUINOUS FLUID. MINIMAL AIR LEAK AND UNCHANGED FROM DAY SHIFT REPORT. 80ML OF OUTPUT. DRESSING CHANGED DUE TO PREVIOUS DRESSING SOILED AND NON-OCCLUSIVE. GOOD URINE OUTPUT. RECTAL TUBE INTACT BUT STOOLS VERY LIQUIDY. BATH COMPLETED. HE CONTINUES TO HAVE HIGH PEAK PRESSURES AT TIMES IN LOW 50S. SEDATION HAS BEEN TITRATED UP A LITTLE AND IT SEEMS TO HAVE HELPED. PATIENT WAS ALSO REQUIRING MORE NIMBEX EARLY ON IN SHIFT. BIS HAS BEEN IN LOW-MID 40S EVER SENSE.
--- NOTE | 2021-03-03 08:25 | NUR ---
DR. MURCIA IN TO SEE PATIENT. INFORMED THAT PHOS 2.2 AND DIGOXIN 0.63. STATED SHE WOULD LIKE TO KEEP ARTERIAL LINE FOR NOW WHILE CHANGING HR AND BP MEDICATIONS AROUND. INFORMED THAT CHEST TUBE HAD 80 MLS OF DRAINAGE ON CLARIFYING PLANT OPERATOR. NO ORDERS OBTAINED AT THIS TIME.
--- NOTE | 2021-03-03 09:14 | NUR ---
DR PHILLIPS ROUNDED ON PATIENT, CHANGES TO MEDICATIONS
--- NOTE | 2021-03-03 12:29 | NUR ---
DR MURCIA ROUNDED, PATIENT MEDICATED WITH LOPRESSOR, DECREASED CARDIZEM TO 5, HEART RATE 70, PATIENT REPOSITIONED, ORAL DONE, RT ROUNDED, BIS 40, PATIENT MOVING HEAD AND CHEWING, WCTM
--- NOTE | 2021-03-03 18:27 | NUR ---
SHIFT SUMMARY PATEINT VENTILATED, SEDATED, AND PARALIZED. REMAINED AFIBRILE, BIS 40-50, TRAIN OF 4/4,NO VENT CHANGES THIS SHIFT, LEFT LUNG CORSENESS IMPROVED, CT 2ML SEROSAGINOUS FLUIDS, NO CREPITUS, REMAINED IN AFIB, TRIAL WITHOUT CARDIZEM HEART RATE 130-150, DR MURCIA CHANGED DIGOXIN AND LOPRESSOR ORDER TO CONTROL THE AFIB, CARDIZEM GTT AT 10, SBP STABLE 100-160, POOR PULSE ON RIGHT PEDAL, TUBE FEED AT GOAL RATE, BS 90-160, RECTAL TUBE DRAINED 175 ML, FARIA DRAINED 725 ML YELLOW CLEAR URINE, NO SKIN CHANGES, REPOSITIONED EVERY 2 HOURS, NO SIGN OF DISTRESS, REPORT TO PM RN
--- NOTE | 2021-03-03 18:40 | NUR ---
PATIENT ASSESSED LAST TIME BEFORE REPORT TO CORPORATE TRAINING MANAGER GIVEN. ABOUT 15 MLS OF CHEST TUBE FLUID LEAKED FROM INSERTION SITE AND ONTO DUNN. DUNN AND CHEST TUBE DRESSING CHANGED.
[2021-03-04 03:52] LABS: BASOPHILS ABSOLUTE AUTO 0.02 K/mm3 (0.00-0.23); BASOPHILS PERCENT AUTO 0 % (0-2); EOSINOPHILS ABSOLUTE AUTO 0.02 K/mm3 (0.00-0.68); EOSINOPHILS PERCENT AUTO 0 % (0-6); Hematocrit 33.7 % (37.0-53.0); Hemoglobin 10.8 g/dL (13.5-17.5); IMMATURE GRAN ABSOLUTE AUTO 0.16 K/mm3 (0.00-0.10); IMMATURE GRAN PERCENT AUTO 1 % (0-1); LYMPHOCYTES PERCENT AUTO 18 % (21-46); MONOCYTES ABSOLUTE AUTO 0.97 K/mm3 (0.16-1.47); MONOCYTES PERCENT AUTO 8 % (4-13); Mean Corpuscular HGB 31.6 pg (26.0-34.0); Mean Corpuscular Volume 99 fL (80-100); Mean Platelet Volume 10.2 fL (9.1-12.4); NEUTROPHILS ABSOLUTE AUTO 9.47 K/mm3 (1.96-9.15); NEUTROPHILS PERCENT AUTO 73 % (41-73); NRBC ABSOLUTE 0.03 K/mm3 (0.00-0.02); NRBC Auto 0.2 /100 WBC (0.0-0.2); Platelet Count 306 K/mm3 (150-400); RDW Coefficient Variation 13.8 % (11.7-14.2); Red Blood Cell Count 3.42 M/mm3 (4.30-5.90); White Blood Cell Count 12.94 K/mm3 (4.00-11.30)
[2021-03-04 04:10] LABS: Albumin, Blood 1.6 g/dL (3.4-5.0); Anion Gap 0 mmol/L (6-16); Blood Urea Nitrogen 21 mg/dL (8-24); Bun/Creatinine Ratio 58.2 (12.0-20.0); CO2, Blood 36 mmol/L (21-32); Calcium, Blood 8.2 mg/dL (8.5-10.1); Chloride, Blood 102 mmol/L (98-108); Creatinine, Blood 0.36 mg/dL (0.60-1.20); Glomerular Filtration Rate >60 (60-); Glucose, Blood 114 mg/dL (70-99); Phosphorus, Blood 2.2 mg/dL (2.5-4.9); Potassium, Blood 4.4 mmol/L (3.5-5.5); Sodium, Blood 138 mmol/L (136-145)
--- NOTE | 2021-03-04 05:37 | NUR ---
END OF SHIFT SUMMARY: PATIENT HAS REMAINED INTUBATED/SEDATED & PARALYZED. TOF 3/4 ON CURRENT SEDATION. VENT SETTINGS UNCHANGED. R LATERAL CHEST TUBE REMAINS AT -20 WITH 70 OF OUTPUT. DRESSING CHANGED DUE TO IT BEING COMPLETELY SOILED BUT IS NOW DRY/INTACT. NIMBEX WAS TITRATED BACK UP TO 2 DUE TO PATIENT LOOKING UNCOMFORTABLE BEING VENTILATED AND HIGH PEAK PRESSURES. AFIB STILL REQUIRING CARDIZEM DRIP ALTHOUGH I WAS ABLE TO PUT IT ON STANDBY FOR A COUPLE HOURS. HR IN 140S THIS MORNING AT TIMES WELL HIGH BP. LABS WNL. GOOD URINE OUTPUT
--- NOTE | 2021-03-04 20:00 | NUR ---
ASSUMING PT CARE: REPORT RECEIVED FROM DINESH MENDEZ. PT INTUBATED & SEDATED & PARALYZED. VENT: AC VC 18/350, 14/60%. GTTs: PROPOFOL 30mcg/kg/min, VERSED 1mg/hr, FENTANYL 75mcg/hr, NIMBEX 1mcg/kg/min, DILTIAZEM 2.5mg/hr. BIS 35-40. ToF 4/4. CHEST TUBE TO R LATERAL CHEST DRAINING SEROSANGUINOUS FLUID, APPROX 10ml OUTPUT IN CHAMBER. PER DAYSHIFT RN, PT CONTINUED TO HAVE PEAK PRESSURES IN THE 50s, MULTIPLE TIMES, NEDITA FLUSHED & ASPIRATED THE CHEST TUBE & REMOVED SEVERAL LONG BLOOD CLOTS. HIGH PRESSURES RESOLVE AFTER CLOTS REMOVED. SEE INTERVENTIONS FOR FULL ASSESSMENT.
[2021-03-05 04:36] LABS: BASOPHILS ABSOLUTE AUTO 0.05 K/mm3 (0.00-0.23); BASOPHILS PERCENT AUTO 0 % (0-2); EOSINOPHILS ABSOLUTE AUTO 0.06 K/mm3 (0.00-0.68); EOSINOPHILS PERCENT AUTO 0 % (0-6); Hematocrit 36.7 % (37.0-53.0); Hemoglobin 11.5 g/dL (13.5-17.5); IMMATURE GRAN ABSOLUTE AUTO 0.43 K/mm3 (0.00-0.10); IMMATURE GRAN PERCENT AUTO 3 % (0-1); LYMPHOCYTES ABSOLUTE AUTO 3.31 K/mm3 (0.84-5.20); LYMPHOCYTES PERCENT AUTO 24 % (21-46); MONOCYTES ABSOLUTE AUTO 1.24 K/mm3 (0.16-1.47); MONOCYTES PERCENT AUTO 9 % (4-13); Mean Corpuscular HGB 31.4 pg (26.0-34.0); Mean Corpuscular HGB Conc 31.3 g/dL (31.5-36.5); Mean Corpuscular Volume 100 fL (80-100); NEUTROPHILS ABSOLUTE AUTO 8.85 K/mm3 (1.96-9.15); NEUTROPHILS PERCENT AUTO 64 % (41-73); NRBC ABSOLUTE 0.04 K/mm3 (0.00-0.02); NRBC Auto 0.3 /100 WBC (0.0-0.2); Platelet Count 365 K/mm3 (150-400); RDW Coefficient Variation 13.9 % (11.7-14.2); RDW Standard Deviation 51.3 fL (35.1-46.3); Red Blood Cell Count 3.66 M/mm3 (4.30-5.90); White Blood Cell Count 13.94 K/mm3 (4.00-11.30)
[2021-03-05 05:05] LABS: Albumin, Blood 1.7 g/dL (3.4-5.0); Anion Gap Unable to Calculate mmol/L (6-16); Blood Urea Nitrogen 20 mg/dL (8-24); Bun/Creatinine Ratio 60.8 (12.0-20.0); CO2, Blood 39 mmol/L (21-32); Calcium, Blood 8.2 mg/dL (8.5-10.1); Chloride, Blood 102 mmol/L (98-108); Creatinine, Blood 0.33 mg/dL (0.60-1.20); Glomerular Filtration Rate >60 (60-); Glucose, Blood 121 mg/dL (70-99); Phosphorus, Blood 2.4 mg/dL (2.5-4.9); Potassium, Blood 4.3 mmol/L (3.5-5.5); Sodium, Blood 140 mmol/L (136-145)
[2021-03-05 05:17] LABS: PCO2 Arterial 71.2 mmHg (35-45); PO2 Arterial 49.3 mmHg (80-100); pH Blood Arterial 7.34 (7.35-7.45)
--- NOTE | 2021-03-05 06:31 | NUR ---
UPDATE: HIGH PEAK PRESSURES / DESATTING. PT CONTINUES TO DESAT ON 100% FiO2, NOW 80%. HR AFIB 150s-130s. PEAK PRESSURES 55 CONSISTENTLY. RT CALLED TO BEDSIDE. COPIOUS AMT OF THICK/GTZ SECRETIONS FROM ETT; ETT LAVAGED W/ MORE SECRETIONS. PT REPOSITIONED SUPINE & IS NOW 97%, HOWEVER PEAK PRESSURES CONTINUE TO BE HIGH 40s. NEDITA @ BEDSIDE TO ASSESS. PLAN TO PLACE ANOTHER SM BORE CHEST TUBE ANTERIORLY.
--- NOTE | 2021-03-05 06:47 | NUR ---
SHIFT SUMMARY: PT CONTINUES TO BE INTUBATED, SEDATED, & PARALYZED. VENT: 18/350, 14/100%. GTTs VERSED 2mg/hr, CARDIZEM 7mg/hr, NIMBEX 2mcg/kg/min, FENTANYL 75mcg/hr, PROPOFOL 40mcg/kg/min, LEVOPHED ON SB. BIS 35-45. ToF 3/4. SPO2 NOW 90%. THICK/GTZ SECTRETIONS FROM ETT, SUCTION IMPROVES SPO2 HOWEVER PT DOES RETURN TO THE LOW 90s SHORTLY AFTER. CHEST TUBE DRESSING CHANGED THIS SHIFT. DUSKINESS OF THE HANDS & FACE APPEARS TO BE WORSENING. SCANT RECTAL TUBE OUTPUT. 1550 URINE OUTPUT. SEE PREVIOUS NOTATION FOR PT PROGRESSION. PLAN FOR PIGTAIL CHEST TUBE PLACEMENT TODAY PER TWIN.
--- NOTE | 2021-03-05 08:30 | NUR ---
AM NOTE.... ASSUMED CARE OF PT AT 0700, PT IS INTUBATED, SEDATED AND PARALYZED ON NIMBEX AT 2MCG, PROPOFOL AT 40MCG, VERSED GTT AT 2MG/HR AND A FENTANYL COIL WINDING SUPERVISOR RUNNING AT 75MCG/HR. PT'S VENT SETTINGS ARE AC:18/350/14/100% WITH O2 SATS >89%. L/S VERY COARSE RHONICH T/O AND DIM IN THE BASES. PT HAS A CHEST TUBE TO THE RIGHT LATERAL CHEST WALL SET TO SUCTION, THE DRESSING IS C/D/I, CONSTANT BUBBLING IS NOTED IN THE OCEAN WATER SEAL CHAMBER, NO BUBBLING IS NOTED IN THE AIR LEAK CHAMBER. THE PT'S PEEK PRESSURE ON THE VENT IS 45-49. PT IS IN AFIB IN THE 90'S-120'S WITH CARDIZEM GTT RUNNING AT 7MG/HR. ART LINE IS PRESENT TO THE LEFT WRIST, ART LINE MAPS ARE 60-75. PT HAS EDEMA NOTED TO HIS BUE AND BLE. BT PRESENT AND HYPOACTIVE,ABD IS SOFT AND TO PALP. TUBE FEEDS RUNNING PER GOAL AT 25MLS/HR. RECTAL TUBE IS PATENT AND DRAINING TO GRAVITY. FARIA IS PATENT AND DRAINING TO GRAVITY. THE PT'S HANDS ARE COOL AND MOTTLED WITH CAP REFIL >3SECONDS. WILL CONTINUE TO MONITOR.
--- NOTE | 2021-03-05 16:04 | NUR ---
PT UPDATE... AT 0910 DR. MURCIA WAS AT THE BEDSIDE TO LAVAGE AND MANUALLY SUCTION THE PT'S CHEST TUBE, THIS WAS DONE WITH A SMALL AMOUNT OF BLOODY DISCHARGE NOTED IN THE SYRINGE. AFTER THIS THE PT'S PEEK PRESSURES ON THE VENT IMPROVED DOWN TO THE MID TO HIGH 30'S AND BUBBLING WAS NOTED IN THE AIR LEAK COMPARTMENT OF THE OCEAN DEVICE. THE PT'S VS WERE STABLE DURING THIS TIME. AT 1010 THE PT'S PEEK PRESSURES ON THE VENT STARTED TO CLIMB BACK UP TO THE MID TO HIGH 40'S, THE BUBBLES ALSO STOPPED IN THE AIR LEAK COMPARTMENT. DR. MURCIA WAS NOTIFIED AND A PIGTAIL CHEST TUBE WAS PLACED ON THE RIGHT ANTERIOR CHEST WALL. AFTER THE PROCEDURE THE PT'S PEEK PRESSURES IMPROVED SLIGHTLY TO THE LOW 40'S, THE AIR LEAK CHAMBER WAS BUBBLING IN THE NEW OCEAN DEVICE. THE PT'S BP DROPPED SLIGHTLY WITH MAPS IN THE MID 50'S TO LOW 60'S THE PT WAS RE-STARTED ON LEVOPHED GTT RUNNING AT 3MCG/MIN. THIS WAS STOPPED APROX 2 HOURS LATER D/T SBPs IN THE 130'S-140'S. WILL CONTINUE TO MONITOR.
--- NOTE | 2021-03-05 18:52 | NUR ---
SHIFT SUMMARY... NO ACUTE NEGATIVE CHANGES NOTED SINCE PREVIOUS NOTES. THE PT'S 2 CHEST TUBE SITES ARE SECURE THE DRESSINGS ARE C/D/I WITH NO CREPITUS NOTED ON ASSESSMENTS. THE PT CONTINUES ON CARDIZEM ON AT 5MG/HR. THE PT'S FARIA IS PATENT AND DRAINING TO GRAVITY, RECTAL TUBE PATENT AND DRAINING TO GRAVITY WITH MINIMAL OUTPUT. WILL CONTINUE TO MONITOR UNTIL REPORT IS GIVEN TO ONCOMING RN.
--- NOTE | 2021-03-05 19:50 | NUR ---
RCVD REPORT FROM AM RN (JACKIE). PT REMAINS INTUBATED, SEDATED, AND ON PARALYTIC GTT. VENT SETTINGS: ACVC/18/350/55%/10+, 8.0 ETT 24CM @ TEETH, BITE BLOCK IN PLACE. FENTANYL @75MCG, PROPOFOL @40MCG, VERSED @2MG, CARDIZEM @5MG NIMBEX @2.5MG. LEFT FACIAL TOF =4/4 (7mA); PT COMPLIANT WITH VENT SETTINGS ON CURRENT INFUSION RATES. FARIA AND BMS TO GRAVITY DRAINAGE. OGT PATENCY VERIFIED VIA INJECTION OF AUDIBLE AIR BUBBLE; PIVOT TF @25ML/HR 30ML H2O FLUSH Q4H (15ML RESIDUAL NOTED). ALEJO R CHEST TUBES PATENT, SITES ARE C/D/I, NO SUBCUT EMPHYSEMA NOTED. SEE [employer] FOR DETAILED ASSESSMENT.
--- NOTE | 2021-03-06 00:08 | NUR ---
ABP MAP >65, NOREPI GTT RESTARTED @2MCG.
[2021-03-06 03:12] LABS: BASOPHILS ABSOLUTE AUTO 0.02 K/mm3 (0.00-0.23); BASOPHILS PERCENT AUTO 0 % (0-2); EOSINOPHILS PERCENT AUTO 0 % (0-6); Hematocrit 29.8 % (37.0-53.0); Hemoglobin 9.7 g/dL (13.5-17.5); IMMATURE GRAN ABSOLUTE AUTO 0.59 K/mm3 (0.00-0.10); IMMATURE GRAN PERCENT AUTO 4 % (0-1); LYMPHOCYTES PERCENT AUTO 13 % (21-46); MONOCYTES ABSOLUTE AUTO 1.21 K/mm3 (0.16-1.47); MONOCYTES PERCENT AUTO 8 % (4-13); Mean Corpuscular HGB Conc 32.6 g/dL (31.5-36.5); Mean Corpuscular Volume 101 fL (80-100); Mean Platelet Volume 12.2 fL (9.1-12.4); NEUTROPHILS ABSOLUTE AUTO 11.08 K/mm3 (1.96-9.15); NEUTROPHILS PERCENT AUTO 75 % (41-73); NRBC ABSOLUTE 0.02 K/mm3 (0.00-0.02); NRBC Auto 0.1 /100 WBC (0.0-0.2); Platelet Count 215 K/mm3 (150-400); RDW Coefficient Variation 14.1 % (11.7-14.2); Red Blood Cell Count 2.94 M/mm3 (4.30-5.90)
[2021-03-06 03:31] LABS: Albumin, Blood 1.3 g/dL (3.4-5.0); Anion Gap 2 mmol/L (6-16); Blood Urea Nitrogen 21 mg/dL (8-24); Bun/Creatinine Ratio 61.4 (12.0-20.0); CO2, Blood 33 mmol/L (21-32); Calcium, Blood 6.6 mg/dL (8.5-10.1); Chloride, Blood 99 mmol/L (98-108); Creatinine, Blood 0.34 mg/dL (0.60-1.20); Glomerular Filtration Rate >60 (60-); Glucose, Blood 200 mg/dL (70-99); Magnesium, Blood 2.1 mg/dL (1.6-2.4); Phosphorus, Blood 2.3 mg/dL (2.5-4.9); Potassium, Blood 4.4 mmol/L (3.5-5.5); Sodium, Blood 134 mmol/L (136-145)
--- NOTE | 2021-03-06 06:37 | NUR ---
LEVO GTT RESTARTED DURING PM SHIFT DUE TO MAP 55-60. WILL WEAN WHEN APPROPRIATE. LOPRESSOR HELD DURING SHIFT.
--- NOTE | 2021-03-06 11:36 | NUR ---
CARE ASSUMED ASSESSMENTS COMPLETED, PT INTUBATED, SEDATED, PARALYZED, HAS 2 R LATERAL CHEST TUBES. PROPOFOL 40MCG/KG/HR, VERSED 2MG/HR, FENTANYL 75MCG/HR, BIS 40'S. VENT AC 18, Vt 350, PEEP 10, FIO2 55%, PT NOT OVERBREATHING THE VENT, NIMBEX 2.5MCG/KG/MIN WITH TOF 4/4 AND WEAK COUGH REFLEX INTACT, NO EXTREM MOVEMENT, NO GAG OR SWALLOW. LS COARSE ON R, VERY DIMINISHED ON LEFT BUT COARSE AND WHEEZY. NO SECRETIONS FROM ETT. LARGE BORE AND PIGTAIL CHEST TUBES TO R LATERAL CHEST WITHOUT TIDALING, NO AIR LEAKS NOTED, SANGUINEOUS DRAINAGE FROM BOTH. AT BEDSIDE, CHEST TUBES TO WATER SEAL, NOT FUNCTIONING PROPERLY PER DR. REIS, PLANNING FOR CHEST CT THIS AFTERNOON TO ASSESS PLACEMENT. VENT SETTINGS ALSO CHANGED BY DR REIS TO AC 25, Vt 300, PEEP 10, FIO2 55%, SPO2 REMAINS >90%. PEAK PRESSURE 30'S. HR 100-140 AFIB, CARDIZEM INCREASED TO 10MG/HR. BP STABLE PER ART LINE WITH MAP'S 80'S. ART LINE ZEROED, TITRATING LEVOPHED DOWN ABLE, CURRENTLY AT 2MCG/MIN. PT EDEMATOUS IN ALL EXTREMS, CAP REFILL SLUGGISH, FEET ARE MOTTLED AND COOL TO TOUCH. PERIPHERAL PULSES FAINT IN ALL EXTREMS. BT PRESENT, TF AT GOAL, RECTAL TUBE WITH SCANT OUTPUT. FARIA PATENT WITH CLEAR YELLOW URINE.
--- NOTE | 2021-03-06 14:30 | NUR ---
PIGTAIL CHEST TUBE ADJUSTMENT CHEST CT COMPLETED, AWARE OF RESULTS. PIGTAIL CHEST TUBE TO R LATERAL CHEST WALL RETRACTED BY DR. REIS, AIR LEAK NOTED AFTER RETRACTION. TUBE SECURED, RE-DRESSED, BOTH CHEST TUBES BACK TO SUCTION -20CM. DRESSING TO LARGE BORE CHEST TUBE CHANGED WELL D/T SATURATION WITH BLOOD.
--- NOTE | 2021-03-06 16:50 | NUR ---
UPDATE CXR COMPLETED, AWARE OF RESULTS. PEAK PRESSURES HAVE DECREASED FROM 46 TO 35 SINCE PIGTAIL CHEST TUBE WAS RETRACTED. BOTH CHEST TUBES REMAIN TO -20CM SUCTION, TIDALING PRESENT, NO APPARENT AIR LEAK NOTED AT THIS TIME. NIMBEX AND LEVOPHED OFF, VSS, PT TOLERATING VENT WELL.
--- NOTE | 2021-03-06 17:58 | NUR ---
END OF SHIFT NIMBEX AND LEVO REMAIN OFF, HR 70-100 AFIB/FLUTTER, CARDIZEM 5MG/HR, BP STABLE WITH MAP 70'S. LS REMAIN COARSE, DIM ON R SIDE BUT R LUNG AIRATION HAS IMPROVED SINCE PIGTAIL ADJUSTMENT. PEAK PRESSURE 33 AT THIS TIME, SPO2 93%, RR 25. VENT AC 25, Vt 300, PEEP 10, FIO2 50%. PROPOFOL, VERSED, AND FENTANYL GTT'S REMAIN UNCHANGED. RESTRAINTS PLACED WHEN NIMBEX WAS TURNED OFF, PT HAS NOT BEEN NOTED TO MOVE EXTREMS OR OPEN EYES, OCCASIONAL COUGH NOTED, NO VENT ASYNCHRONY OR OVERBREATHING. BEDBATH GIVEN, RECTAL TUBE REMOVED, ATTENDS PLACED. GOOD URINE OUTPUT TODAY, PT REMAINS EDEMATOUS WITH FAINT PULSES, SLUGGISH CAP REFILL, AND MOTTLING TO LE'S. SODIUM AND PHOS REPLACED.
--- NOTE | 2021-03-06 19:42 | NUR ---
PEAK PRESSURES IN 50S, DR. SMILEY CHAUDHRY. VENT SETTINGS ADJUSTED PER RT AND DR. REIS'S ORDERS.
--- NOTE | 2021-03-06 20:30 | NUR ---
HIGH PEAK PRESSURES NOTED, DR. SMILEY CHAUDHRY. NEW ORDERS RCVD. NEW VENT SETTINGS: ACPC/25/PS 15/50%/10+. PT TOLERATING VENT CHANGES. CHEST TUBES TO SUCTION, NO TIDALING NOTED IN MD ANDREZ AWARE OF CHEST TUBE STATUS.
[2021-03-07 04:08] LABS: Hematocrit 28.8 % (37.0-53.0); Hemoglobin 9.3 g/dL (13.5-17.5); Mean Corpuscular HGB 32.5 pg (26.0-34.0); Mean Corpuscular HGB Conc 32.3 g/dL (31.5-36.5); Mean Corpuscular Volume 101 fL (80-100); Mean Platelet Volume 11.3 fL (9.1-12.4); NRBC ABSOLUTE 0.04 K/mm3 (0.00-0.02); NRBC Auto 0.2 /100 WBC (0.0-0.2); Platelet Count 335 K/mm3 (150-400); RDW Coefficient Variation 14.5 % (11.7-14.2); RDW Standard Deviation 53.1 fL (35.1-46.3); Red Blood Cell Count 2.86 M/mm3 (4.30-5.90)
[2021-03-07 04:24] LABS: Anion Gap 1 mmol/L (6-16); Blood Urea Nitrogen 19 mg/dL (8-24); Bun/Creatinine Ratio 56.2 (12.0-20.0); CO2, Blood 37 mmol/L (21-32); Calcium, Blood 7.3 mg/dL (8.5-10.1); Chloride, Blood 97 mmol/L (98-108); Creatinine, Blood 0.34 mg/dL (0.60-1.20); Glomerular Filtration Rate >60 (60-); Glucose, Blood 171 mg/dL (70-99); Magnesium, Blood 2.1 mg/dL (1.6-2.4); Phosphorus, Blood 4.1 mg/dL (2.5-4.9); Potassium, Blood 4.5 mmol/L (3.5-5.5); Sodium, Blood 135 mmol/L (136-145)
[2021-03-07 04:56] LABS: BAND PERCENT MAN 5 % (0-8); BASOPHILS PERCENT MAN 0 % (0-2); EOSINOPHILS PERCENT MAN 0 % (0-6); LYMPHOCYTES ABSOLUTE MAN 2.43 K/mm3 (0.84-5.20); LYMPHOCYTES PERCENT MAN 13 % (21-46); MONOCYTES ABSOLUTE MAN 0.74 K/mm3 (0.16-1.47); MONOCYTES PERCENT MAN 4 % (4-13); MYELOCYTE ABSOLUTE MAN 0.56 K/mm3 (0.00-0.00); MYELOCYTE PERCENT MAN 3 % (0-0); NEUTROPHILS ABSOLUTE MAN 14.96 K/mm3 (1.96-9.15); SEG NEUTROPHILS PERCENT MAN 75 % (41-73); TOTAL CELLS COUNTED 100
--- NOTE | 2021-03-07 08:17 | NUR ---
REPORT RECIEVED FROM AIRPORT OPERATIONS DUTY MANAGER RN. PATIENT IS CURRENTLY SEDATED ON PROPOFOL GTT AT 20 MCK/KG/MIN DOWN FROM 40 MCG/KG/MIN BECAUSE OF LOW BP 78/54. REMAINS ON VERSED AT 2 MG/HR. HIS LEVOPHED GTT WAS TURNED BACK ON, NOW AT 2 MCG/MIN FOR MAP >65. TEMP 98.7. ALLY SLUGGISH, SIZE 7 PUPILS. NO WITHDRAWL TO UPPER EXTREMETIES WITH PAINFUL STIMULI, TOES RAISE UP TO PAINFUL STIMULI. DOES HAVE A GAG REFLEX WITH ORAL CARE. AFIB WITH HR 120-130'S. BP NOW 114/70 MAP87, LEVOPHED GTT DOWN TO 1 MCG/MIN. LUNG SOUNDS ARE COARSE THROUGH OUT. MINIMAL SECRETIONS, BUT RT WAS IN PRIOR. THICK ORAL SECRETIONS WITH ORAL CARE. PATIENT TURNED TO RIGHT SIDE FROM LEFT SIDE. HAS BOWEL TONES, NO BM YET THIS SHIFT. TF RUNNING AT 25ML/HR WITH Q4 HR H2O 30 ML. RESIDUALS WERE LESS THAN 5 ML. HAS A FARIA CATH IN PLACE WITH YELLOW URINE. SKIN IS WARM TO TOUCH. VENT SETTINGS AC PEEP 10, FIO2 55%.
--- NOTE | 2021-03-07 18:20 | NUR ---
NO CHANGES TO NEURO ASSESSMENT. HE IS OFF VERSED GTT, PROPOFOL GTT DOWN TO 30 MCG/KG/MIN, FENTANYL STILL AT 75 MCG/HR. LEVOPHED GTT OFF. CARDIZEM GTT AT 10 MG/HR FOR HR CONTROL. HIS HR HAS BEEN 100-140'S, BP 60-170'S/40-90'S. PPP, THIN AND THREADY. HE GETS MOTTLED AT TIMES. HIS A-LINE WAS DC'D TODAY PER MD. LUNG SOUNDS STILL COARSE. HE HAS HAD LARGE AMOUNTS OF SPUTUM UP THROUGH ETT THAT IS GTZ AND THICK. HE HAS HAD COPIOUS, THICK ORAL SECRETIONS. HE IS STARTING TO HAVE SOME SCABS ON BOTH UPPER AND LOWER LIPS ALL THE WAY ACROSS. KEPT MOVING ETT FROM LEFT TO RIGHT. NO CHANGES TO VENT SETTINGS TODAY. AC/PC FIO2 55%, RATE OF 25, PEEP OF 10. BOWEL TONES HYPER ACTIVE, NO BM, DOES PASS FLATUS- STRONG IN ODOR. FARIA CATH WITH GOOD URINE OUTPUT ABOUT 1100 ML THROUGH OUT THE DAY. 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 HE HAD A FULL BED BATH, HAIR WASHED AND COMBED, THERE IS A MAT OF HAIR FORMING ON BACK OF HEAD. HIS FACE WAS SHAVED TODAY. HE IS TOLERATING HIS TF. NO PHONE CALLS FROM FRIENDS OR FAMILY TO CHECK ON PATIENT PROGRESS TODAY.
--- NOTE | 2021-03-08 04:12 | NUR ---
SPO2 86-88%; PT REPOSITIONED, ETT SUCTIONING AND LAVAGE PERFORMED. NO IMPROVEMENT OF SPO2. FIO2 TITRATED FROM 50% TO 60%, SPO2 NOW 93%.
[2021-03-08 04:39] LABS: Hematocrit 26.7 % (37.0-53.0); Mean Corpuscular HGB 32.8 pg (26.0-34.0); Mean Corpuscular HGB Conc 33.7 g/dL (31.5-36.5); Mean Corpuscular Volume 97 fL (80-100); Mean Platelet Volume 11.3 fL (9.1-12.4); NRBC ABSOLUTE 0.15 K/mm3 (0.00-0.02); NRBC Auto 0.6 /100 WBC (0.0-0.2); Platelet Count 329 K/mm3 (150-400); RDW Coefficient Variation 14.7 % (11.7-14.2); RDW Standard Deviation 51.9 fL (35.1-46.3); Red Blood Cell Count 2.74 M/mm3 (4.30-5.90); White Blood Cell Count 24.86 K/mm3 (4.00-11.30)
[2021-03-08 05:00] LABS: Magnesium, Blood 1.8 mg/dL (1.6-2.4)
[2021-03-08 05:01] LABS: Albumin, Blood 1.4 g/dL (3.4-5.0); Albumin/Globulin Ratio 0.4 (0.8-1.8); Alk Phos 61 U/L (50-136); Anion Gap 2 mmol/L (6-16); Aspartate Aminotrans (AST/SGOT 36 U/L (12-37); Bilirubin, Total 0.5 mg/dL (0.1-1.0); Blood Urea Nitrogen 16 mg/dL (8-24); Bun/Creatinine Ratio 48.8 (12.0-20.0); CO2, Blood 37 mmol/L (21-32); Calcium, Blood 7.7 mg/dL (8.5-10.1); Chloride, Blood 98 mmol/L (98-108); Creatinine, Blood 0.33 mg/dL (0.60-1.20); Globulin, Blood 3.6 g/dL (2.2-4.0); Glomerular Filtration Rate >60 (60-); Glucose, Blood 114 mg/dL (70-99); Phosphorus, Blood 2.1 mg/dL (2.5-4.9); Potassium, Blood 3.9 mmol/L (3.5-5.5); Sodium, Blood 137 mmol/L (136-145)
[2021-03-08 05:33] LABS: BAND PERCENT MAN 3 % (0-8); BASOPHILS PERCENT MAN 0 % (0-2); BLASTS PERCENT MAN 1 % (0-0); EOSINOPHILS ABSOLUTE MAN 0.24 K/mm3 (0.00-0.68); EOSINOPHILS PERCENT MAN 1 % (0-6); LYMPHOCYTES ABSOLUTE MAN 5.46 K/mm3 (0.84-5.20); LYMPHOCYTES PERCENT MAN 22 % (21-46); METAMYELOCYTE ABSOLUTE MAN 0.24 K/mm3 (0.00-0.00); METAMYELOCYTE PERCENT MAN 1 % (0-0); MONOCYTES ABSOLUTE MAN 1.24 K/mm3 (0.16-1.47); MONOCYTES PERCENT MAN 5 % (4-13); MYELOCYTE ABSOLUTE MAN 0.49 K/mm3 (0.00-0.00); MYELOCYTE PERCENT MAN 2 % (0-0); NEUTROPHILS ABSOLUTE MAN 16.65 K/mm3 (1.96-9.15); PROMYELOCYTE ABSOLUTE MAN 0.24 K/mm3 (0.00-0.00); PROMYELOCYTE PERCENT MAN 1 % (0-0); SEG NEUTROPHILS PERCENT MAN 64 % (41-73); TOTAL CELLS COUNTED 100
[2021-03-08 05:42] LABS: Alanine Aminotransfer (ALT/SGP 34 U/L (12-78)
--- NOTE | 2021-03-08 10:11 | NUR ---
CARE ASSUMED ASSESSMENTS COMPLETED, PT REMAINS SEDATED WITH PROPOFOL 30MCG/KG/MIN AND FENTANYL 75MCG/HR, TURNS HEAD, OPENS EYES, AND MOVES RLE, DOES NOT TRACK OR FOLLOW DIRECTION. VENT AC/PC RATE 25, Pi 18, Ti 0.9, PEEP 10, FIO2 60%. RR 20'S, PEAK PRESSURE 31, SPO2 LOW 90'S. OCCASIONAL COUGH WITH SCANT WHITE SECRETIONS. PIGTAIL CT TO R LATERAL CHEST WITH SMALL AMOUNT OF SS FLUID, LARGE BORE CT TO R LATERAL CHEST WITH MODERATE AMOUNT OF DARK SANGUINEOUS OUTPUT, BOTH TUBES ARE AT -20CM H20 SUCTION WITH NO TIDALING AND NO AIR LEAK NOTED, DR. REIS AWARE. LS COARSE ON L, DIMINISHED ON R, LS PRESENT IN ALL LOBES. HR 100-120 AFIB/FLUTTER, BP STABLE. CARDIZEM GTT AT 10MG/HR, MEDICATION CHANGES MADE BY DR. REIS, WILL ATTEMPT TO WEAN CARDIZEM OFF TODAY. PERIPHERAL PULSES FAINT IN ALL EXTREMS, LE COLORING HAS IMPROVED, NO MOTTLING NOTED TO FEET, SKIN WARM AND DRY WITH GOOD CAP REFILL. EDEMA TO BLE'S. TF INFUSING, ABDOMEN SOFT WITH ACTIVE BT. FARIA PATENT AND DRAINING. CXR COMPLETED, DR. REIS TO SPEAK WITH DR. BURGOS REGARDING PLAN FOR TRACH PLACEMENT IN THE NEAR FUTURE.
[2021-03-08 12:22] LABS: Automated BF RBC Count 1.177 M/mm3 (0-0); Automated BF WBC Count 6.088 K/mm3 (0-999); Body Fluid WBC Count 6088 /mm3 (0-999); RBC Count, Body Fluid 1177000 /mm3 (0-0)
[2021-03-08 13:00] LABS: Appearance, Body Fluid Bloody (Clear); Color, Body Fluid Red (None-Yellow); Total Cell Count, Body Fluid 100
[2021-03-08 13:10] LABS: Source, Urine Catheter
[2021-03-08 13:18] LABS: Appearance, Urine Clear (Clear); Bilirubin, Urine Neg (Neg); Blood, Urine 1+ (Neg); Color, Urine Yellow (P-Yellow); Glucose Qualitative, Urine Neg (Neg); Ketones, Urine Neg (Neg); Leukocyte Esterase, Urine Neg (Neg); Nitrite, Urine Neg (Neg); Protein, Urine 2+ (Neg); Urobilinogen, Urine 1+ (Normal)
[2021-03-08 13:41] LABS: Squamous Epithelial Cells Rare /hpf (Few)
[2021-03-08 13:43] LABS: Bacteria Rare /hpf; Calcium Oxalate Crystals Few /hpf
[2021-03-08 14:05] LABS: BASOPHILS ABSOLUTE AUTO 0.11 K/mm3 (0.00-0.23); BASOPHILS PERCENT AUTO 1 % (0-2); EOSINOPHILS ABSOLUTE AUTO 0.01 K/mm3 (0.00-0.68); EOSINOPHILS PERCENT AUTO 0 % (0-6); Hematocrit 25.3 % (37.0-53.0); IMMATURE GRAN ABSOLUTE AUTO 1.61 K/mm3 (0.00-0.10); IMMATURE GRAN PERCENT AUTO 7 % (0-1); LYMPHOCYTES ABSOLUTE AUTO 1.82 K/mm3 (0.84-5.20); LYMPHOCYTES PERCENT AUTO 8 % (21-46); MONOCYTES ABSOLUTE AUTO 0.87 K/mm3 (0.16-1.47); MONOCYTES PERCENT AUTO 4 % (4-13); Mean Corpuscular HGB 31.4 pg (26.0-34.0); Mean Corpuscular HGB Conc 31.6 g/dL (31.5-36.5); Mean Corpuscular Volume 99 fL (80-100); Mean Platelet Volume 10.9 fL (9.1-12.4); NEUTROPHILS ABSOLUTE AUTO 17.79 K/mm3 (1.96-9.15); NEUTROPHILS PERCENT AUTO 80 % (41-73); NRBC ABSOLUTE 0.16 K/mm3 (0.00-0.02); NRBC Auto 0.7 /100 WBC (0.0-0.2); Platelet Count 309 K/mm3 (150-400); RDW Coefficient Variation 14.7 % (11.7-14.2); RDW Standard Deviation 52.5 fL (35.1-46.3); Red Blood Cell Count 2.55 M/mm3 (4.30-5.90); White Blood Cell Count 22.21 K/mm3 (4.00-11.30)
--- NOTE | 2021-03-08 14:17 | NUR ---
Met pt. better but in vent offered prayers for pt.
[2021-03-08 14:32] LABS: Anion Gap 2 mmol/L (6-16); Blood Urea Nitrogen 20 mg/dL (8-24); Bun/Creatinine Ratio 53.1 (12.0-20.0); CO2, Blood 37 mmol/L (21-32); Calcium, Blood 8.3 mg/dL (8.5-10.1); Chloride, Blood 100 mmol/L (98-108); Creatinine, Blood 0.38 mg/dL (0.60-1.20); Glomerular Filtration Rate >60 (60-); Glucose, Blood 196 mg/dL (70-99); Phosphorus, Blood 3.3 mg/dL (2.5-4.9); Potassium, Blood 4.4 mmol/L (3.5-5.5); Sodium, Blood 139 mmol/L (136-145)
--- NOTE | 2021-03-08 15:00 | NUR ---
UPDATE METOPROLOL DOSE INCREASED, ADMINISTERED AT 1235. AT 1320, PT BECAME HYPOTENSIVE, DIAPHORETIC, PALE, AND TACHYPNEIC WITH LOW Vt. NOTIFIED, CARDIZEM OFF, Pi INCREASED TO 20, 500ML BOLUS LR ADMINISTERED WITH GOOD RESULTS, BP STABILIZED, PT NO LONGER DIAPHORETIC. HR 70-100 AFIB, RR NOW 20'S, Vt 300'S, SPO2 >90%. CARDIZEM REMAINS OFF.
--- NOTE | 2021-03-08 18:55 | NUR ---
END OF SHIFT PT'S MATY IN TO SEE PT THIS AFTERNOON, PLAN FOR TRACH DISCUSSED WITH MATY BY DR. REIS, MATY IS AGREEABLE TO PROCEDE WITH TRACH, PLANNING FOR PROCEDURE TOMORROW. WILL REPORT TO NEXT SHIFT TO HOLD LOVENOX AND STOP TF AT MIDNIGHT. PT REMAINED INTERMITTENTLY DIAPHORETIC AND PALE T/O SHIFT WITH EPISODES OF TACHYPNEA, HR INCREASED TO 140 AFIB. CARDIZEM RESUMED, THEN BP BECAME HYPOTENSIVE AROUND 1830, LEVOPHED RESUMED WELL. CURRENT DRIP RATES CARDIZEM 5MG/HR, LEVOPHED 12MCG/MIN, PROPOFOL 30MCG/KG/MIN, FENTANYL 75MCG/HR. VENT AC PC, 25, Pi 20, Ti 0.9, PEEP 10, FIO2 50%. SPO2 > 90%, RR 20'S, Vt 300'S. HR 80'S AFIB, BP REMAINS HYPOTENSIVE. LE'S ARE MOTTLED AND COOL TO TOUCH, PT VERY PALE AND SLIGHTLY DIAPHORETIC, AWARE OF PT'S APPEARANCE AND DECLINE THIS EVENING. REPORT TO ONCOMING SHIFT.
--- NOTE | 2021-03-08 20:00 | NUR ---
RCVD REPORT FROM AM RN. PT REMAINS INTUBATED AND SEDATED. VENT SETTINGS: PC/25/PS 20/50%/10+, 8.0 ETT 26CM @LL, 24CM @TEETH; THICK GTZ/GREEN SECRETIONS SUCTIONED VIA ETT. PROPOFOL @3OMCG, FENTANTYL @75MCG, LEVO @16MCG, CARDIZEM @5MG. MONITORING AFIB 90S, HYPOTENSIVE. SEE [facility] FOR DETAILED ASSESSMENT.
--- NOTE | 2021-03-09 | NUR ---
TUBEFEED AND LOVENOX HELD FOR TRACH PROCEDURE TODAY.
--- NOTE | 2021-03-09 02:10 | NUR ---
PT BECOMINGLY INCREASINGLY AGITATED. PRN ATIVAN ADMINISTERED (SEE MAR).
--- NOTE | 2021-03-09 02:14 | NUR ---
LEVO TITRATED UP TO 16MCG. CARDIZEM TITRATED UP TO 10MG D/T HR IN 140s.
[2021-03-09 04:19] LABS: Hematocrit 19.2 % (37.0-53.0); Hemoglobin 6.5 g/dL (13.5-17.5); Mean Corpuscular HGB 33.3 pg (26.0-34.0); Mean Corpuscular HGB Conc 33.9 g/dL (31.5-36.5); Mean Corpuscular Volume 99 fL (80-100); Mean Platelet Volume 12.2 fL (9.1-12.4); NRBC ABSOLUTE 0.35 K/mm3 (0.00-0.02); NRBC Auto 1.4 /100 WBC (0.0-0.2); Platelet Count 249 K/mm3 (150-400); RDW Coefficient Variation 14.6 % (11.7-14.2); RDW Standard Deviation 51.6 fL (35.1-46.3); Red Blood Cell Count 1.95 M/mm3 (4.30-5.90)
[2021-03-09 04:34] LABS: Albumin, Blood 1.3 g/dL (3.4-5.0); Anion Gap 4 mmol/L (6-16); Blood Urea Nitrogen 21 mg/dL (8-24); Bun/Creatinine Ratio 51.7 (12.0-20.0); CO2, Blood 35 mmol/L (21-32); Chloride, Blood 94 mmol/L (98-108); Creatinine, Blood 0.41 mg/dL (0.60-1.20); Glomerular Filtration Rate >60 (60-); Glucose, Blood 295 mg/dL (70-99); Magnesium, Blood 1.9 mg/dL (1.6-2.4); Phosphorus, Blood 3.8 mg/dL (2.5-4.9); Potassium, Blood 4.1 mmol/L (3.5-5.5); Sodium, Blood 133 mmol/L (136-145)
--- NOTE | 2021-03-09 04:47 | NUR ---
HGB = 6.5, DR. ROVERTO CHAUDHRY. NEW ORDERS RCVD FOR TYPE AND SCREEN, TRANSFUSE 2 UNITS PRBCS.
--- NOTE | 2021-03-09 05:30 | NUR ---
CONSENT FOR BLOOD RCVD VIA TELEPHONE; MATY () CONTACTED. 2 NURSE VERIFICATION FOR CONSENT TO ADMINISTRATION OF BLOOD WITH THIS RN AND HARVEY MONTIEL.
--- NOTE | 2021-03-09 05:46 | NUR ---
LEVO TITRATED DOWN TO 6MCG. MAP REMAINS >65
[2021-03-09 06:27] LABS: BAND PERCENT MAN 7 % (0-8); BASOPHILS PERCENT MAN 0 % (0-2); EOSINOPHILS PERCENT MAN 0 % (0-6); LYMPHOCYTES PERCENT MAN 24 % (21-46); METAMYELOCYTE ABSOLUTE MAN 0.75 K/mm3 (0.00-0.00); METAMYELOCYTE PERCENT MAN 3 % (0-0); MONOCYTES PERCENT MAN 2 % (4-13); MYELOCYTE ABSOLUTE MAN 2.75 K/mm3 (0.00-0.00); MYELOCYTE PERCENT MAN 11 % (0-0); SEG NEUTROPHILS PERCENT MAN 53 % (41-73); TOTAL CELLS COUNTED 100
--- NOTE | 2021-03-09 06:45 | NUR ---
LEVO TITRATED UP TO 16MCG DUE TO MAP <65
--- NOTE | 2021-03-09 06:52 | NUR ---
SHIFT SUMMARY FIO2 TITRATED FROM 50% UP TO 70% PRN ATIVAN ADMINISTERED FOR AGITATION AND VENT DYSYNCHRONY. DROP IN UOP IN COMPARISON TO PREVIOUS SHIFTS. SPIKE IN BG NOTED ON AM CHEM PANEL (INSULIN ADMINISTERED PER ORDER) DROP IN HGB TO 6.5; TYPE AND SCREEN; 2UNITS PRBCs. NO OUTPUT FROM CHEST TUBES.
--- NOTE | 2021-03-09 08:05 | NUR ---
Received report from Noc RN. Patient is intubated and sedated. She has 8.0 ET and is 24 cm at lips and with vent settings AC/PC 25/70/10. He has GINI PICC that is infusing PRBS 1st unit, Propofol 30 mcg/kg/min, Diltiazem 10 mg/hr, Levophed 16 mcg/min, Fentanyl 75ncg/hr. Dr Wood has been by and added Calcium Chloride, 2nd PRBC, LR bolus 1L. He has two right sided chest tubes too suction. He has 16 Fr Handley draining light sathya urine to gravity. Tube feeding Pivot 1.5 on hold currently from NOC shift. He has bilateral soft wrist restraints in place.
--- NOTE | 2021-03-09 09:30 | NUR ---
Am meds given. 2nd unit of blood finishing and monitored and no signs of reactions. qabx. and calcium started and are going as piggybacks. No changes to any vent or gtt settings.
--- NOTE | 2021-03-09 11:30 | NUR ---
2nd unit PRBC finishing and we are holding LR bolus as systolic is coming up. Reduced Levophed to 10 form systolic 135. Still no vent setting changes and sats >90%.
[2021-03-09 12:28] LABS: Hematocrit 27.4 % (37.0-53.0); Hemoglobin 9.2 g/dL (13.5-17.5)
--- NOTE | 2021-03-09 13:30 | NUR ---
Levophed on standby and systolic 117. Vent settings remains at AC/PC 25/70/10. No changes to gtts. Family has called and gave update. Diltiazem remains at 10 and HR 106-139 A-flutter.
--- NOTE | 2021-03-09 14:12 | NUR ---
Attempted to call pt's SO, who answered but was just walking into the ICU at hospital to visit pt. I case conferenced with pt's drs and RN earlier today. Planned to update Ina and review goals of care in light of pt's precarious prognosis with multiple significant comorbidities and acute issues. Ina received an update from pt's RN this am and indicated she wants to stay the course. RN states she is aware of instability and stated she had a "premonition" regarding not being able to perform a tracheostomy today. Ina did not have any questions of me at this time. I will attempt to make contact again tomorrow.
--- NOTE | 2021-03-09 14:13 | NUR ---
Pt. pieter hart, prayed for him.
--- NOTE | 2021-03-09 15:30 | NUR ---
Patient awakens brief period and moves head back and forth. Family by and open eyes breifly. No vent or Gtt changes. TF remains off. Blood done and Hgb >9.0.
--- NOTE | 2021-03-09 18:46 | NUR ---
patient has been resting offand on all shift. He states very bored and hungry.palliative care and Dr steiner met with him after Dr Martinez and he still wants to go to [facility]. He had several liquid stools with blood. Urine output 1000 ml's. Changed LVAD dressing and dressing on left knee. He has been tolerating liquid diet. Placed 18/10 PowerGlide in GINI and removed 18ga IV. Protonix has been infusing all shift. He [id number] alert and oriented and able to communicate his needs. He remains on RA and sats >90%.
--- NOTE | 2021-03-09 20:00 | NUR ---
RCVD REPORT FROM AM RN. PT REMAINS INTUBATED AND SEDATED. 8.0 ETT 26CM @ LIP LINE. PROPFOL, FENTANYL, AND CARDIZEM INFUSING VIA PICC. MONTIORING AFIB 80S, STABLE BP. R CHEST TUBES TO SUCTION. SEE [facility] FOR DETAILED ASSESSMENT.
[2021-03-10 03:06] LABS: BASOPHILS ABSOLUTE AUTO 0.04 K/mm3 (0.00-0.23); BASOPHILS PERCENT AUTO 0 % (0-2); EOSINOPHILS PERCENT AUTO 0 % (0-6); Hematocrit 22.1 % (37.0-53.0); Hemoglobin 7.8 g/dL (13.5-17.5); IMMATURE GRAN ABSOLUTE AUTO 1.47 K/mm3 (0.00-0.10); IMMATURE GRAN PERCENT AUTO 7 % (0-1); LYMPHOCYTES PERCENT AUTO 12 % (21-46); MONOCYTES ABSOLUTE AUTO 1.36 K/mm3 (0.16-1.47); MONOCYTES PERCENT AUTO 7 % (4-13); Mean Corpuscular HGB 33.3 pg (26.0-34.0); Mean Corpuscular HGB Conc 35.3 g/dL (31.5-36.5); Mean Platelet Volume 11.1 fL (9.1-12.4); NEUTROPHILS ABSOLUTE AUTO 15.34 K/mm3 (1.96-9.15); NEUTROPHILS PERCENT AUTO 75 % (41-73); NRBC ABSOLUTE 0.99 K/mm3 (0.00-0.02); NRBC Auto 4.8 /100 WBC (0.0-0.2); Platelet Count 239 K/mm3 (150-400); RDW Coefficient Variation 16.6 % (11.7-14.2); RDW Standard Deviation 54.5 fL (35.1-46.3); Red Blood Cell Count 2.34 M/mm3 (4.30-5.90); White Blood Cell Count 20.61 K/mm3 (4.00-11.30)
[2021-03-10 03:09] LABS: Mean Corpuscular Volume 94 fL (80-100)
[2021-03-10 03:21] LABS: Anion Gap 3 mmol/L (6-16); Blood Urea Nitrogen 17 mg/dL (8-24); Bun/Creatinine Ratio 45.1 (12.0-20.0); CO2, Blood 35 mmol/L (21-32); Calcium, Blood 7.4 mg/dL (8.5-10.1); Chloride, Blood 99 mmol/L (98-108); Creatinine, Blood 0.38 mg/dL (0.60-1.20); Glomerular Filtration Rate >60 (60-); Glucose, Blood 116 mg/dL (70-99); Magnesium, Blood 1.8 mg/dL (1.6-2.4); Phosphorus, Blood 3.3 mg/dL (2.5-4.9); Potassium, Blood 4.1 mmol/L (3.5-5.5); Sodium, Blood 137 mmol/L (136-145)
--- NOTE | 2021-03-10 03:24 | NUR ---
PT HYPOTENSIVE, SPB 60'S MAP <65, LEVO GTT R/S, DR. SMILEY CHAUDHRY. NEW ORDERS RECIEVED.
--- NOTE | 2021-03-10 03:25 | NUR ---
LEVO @14MCG. WILL TITRATE TO MAINTAIN MAP OF 65 OR GREATER
[2021-03-10 03:38] LABS: CPK Creatine Kinase 61 U/L (39-308); Creatine Kinase MB 1.1 ng/mL (0.0-3.6); Creatine Kinase MB Index 1.8 (0.0-4.0); Troponin I <0.015 ng/mL (0.000-0.040)
[2021-03-10 04:56] LABS: BAND PERCENT MAN 9 % (0-8); BASOPHILS PERCENT MAN 0 % (0-2); BLASTS PERCENT MAN 1 % (0-0); EOSINOPHILS PERCENT MAN 0 % (0-6); LYMPHOCYTES ABSOLUTE MAN 2.67 K/mm3 (0.84-5.20); LYMPHOCYTES PERCENT MAN 13 % (21-46); METAMYELOCYTE ABSOLUTE MAN 0.41 K/mm3 (0.00-0.00); METAMYELOCYTE PERCENT MAN 2 % (0-0); MONOCYTES ABSOLUTE MAN 0.82 K/mm3 (0.16-1.47); MONOCYTES PERCENT MAN 4 % (4-13); MYELOCYTE ABSOLUTE MAN 0.82 K/mm3 (0.00-0.00); MYELOCYTE PERCENT MAN 4 % (0-0); NEUTROPHILS ABSOLUTE MAN 15.25 K/mm3 (1.96-9.15); PROMYELOCYTE ABSOLUTE MAN 0.41 K/mm3 (0.00-0.00); PROMYELOCYTE PERCENT MAN 2 % (0-0); SEG NEUTROPHILS PERCENT MAN 65 % (41-73); TOTAL CELLS COUNTED 100
[2021-03-10 09:16] LABS: Digoxin (Lanoxin) 0.94 ug/mL (0.80-2.00)
--- NOTE | 2021-03-10 22:00 | NUR ---
ASSUMED CARE AT 1900 PT LAYING IN BED INTUBATED WITH VENT SETTINGS AC 25, PC 20/10, FIO2 50%; LARGE BORE AND PIGTAIL CHEST TUBES TO RT LATERAL CHEST WALL TO SUCTION; SEROSANGUINOUS DRAINAGE FROM BOTH. PT SEDATED WITH PROPOFOL INFUSING AT 45MCG/KG/MIN AND FENTANYL NURSE REVIEWER INFUSING AT 75MCG/HR; REACTIVE TO NOXIOUS STIMULI; NO PURPOSEFUL MOVEMENT NOTED. AFEBRILE. HR 80'S. SBP 100'S, MAP >65; LEVOPHED INFUSING AT 5MCG/MIN. PIVOT INFUSING VIA OG AT GOAL; MINIMAL RESIDUALS. FARIA IN PLACE AND DRAINING TO GRAVITY. SEE SHIFT ASSESSMENT FOR FULL ASSESSMENT.
[2021-03-11 04:47] LABS: BASOPHILS ABSOLUTE AUTO 0.05 K/mm3 (0.00-0.23); BASOPHILS PERCENT AUTO 0 % (0-2); EOSINOPHILS ABSOLUTE AUTO 0.03 K/mm3 (0.00-0.68); EOSINOPHILS PERCENT AUTO 0 % (0-6); Hematocrit 23.9 % (37.0-53.0); Hemoglobin 7.9 g/dL (13.5-17.5); IMMATURE GRAN ABSOLUTE AUTO 0.93 K/mm3 (0.00-0.10); IMMATURE GRAN PERCENT AUTO 5 % (0-1); LYMPHOCYTES ABSOLUTE AUTO 3.79 K/mm3 (0.84-5.20); LYMPHOCYTES PERCENT AUTO 18 % (21-46); MONOCYTES ABSOLUTE AUTO 1.93 K/mm3 (0.16-1.47); MONOCYTES PERCENT AUTO 9 % (4-13); Mean Corpuscular HGB 32.1 pg (26.0-34.0); Mean Corpuscular HGB Conc 33.1 g/dL (31.5-36.5); Mean Corpuscular Volume 97 fL (80-100); NEUTROPHILS ABSOLUTE AUTO 13.89 K/mm3 (1.96-9.15); NEUTROPHILS PERCENT AUTO 67 % (41-73); NRBC ABSOLUTE 0.49 K/mm3 (0.00-0.02); NRBC Auto 2.4 /100 WBC (0.0-0.2); Platelet Count 300 K/mm3 (150-400); RDW Coefficient Variation 16.4 % (11.7-14.2); RDW Standard Deviation 54.6 fL (35.1-46.3); Red Blood Cell Count 2.46 M/mm3 (4.30-5.90); White Blood Cell Count 20.62 K/mm3 (4.00-11.30)
[2021-03-11 05:44] LABS: Albumin, Blood 1.7 g/dL (3.4-5.0); Anion Gap 1 mmol/L (6-16); Blood Urea Nitrogen 16 mg/dL (8-24); Bun/Creatinine Ratio 42.4 (12.0-20.0); CO2, Blood 37 mmol/L (21-32); Calcium, Blood 8.6 mg/dL (8.5-10.1); Chloride, Blood 102 mmol/L (98-108); Creatinine, Blood 0.38 mg/dL (0.60-1.20); Glomerular Filtration Rate >60 (60-); Glucose, Blood 136 mg/dL (70-99); Phosphorus, Blood 3.6 mg/dL (2.5-4.9); Potassium, Blood 3.9 mmol/L (3.5-5.5); Sodium, Blood 140 mmol/L (136-145)
--- NOTE | 2021-03-11 06:41 | NUR ---
END OF SHIFT SUMMARY NO ACUTE EVENTS OVERNIGHT. PT CONT TO BE INTUBATED WITH VENT SETTINGS AC 25, PC 20/10, FIO2 45%; BOTH CHEST TUBES HAD NO OUTPUT THIS SHIFT. PT IS REACTIVE TO NOXIOUS STIMULI, PROPOFOL INFUSING AT 45MCG/KG/MIN, FENTANYL INFUSING AT 75MCG/HR. HR 80-110. SBP 90-110; LEVOPHED INFUSING AT 5MCG/MIN. TF INFUSING AT GOAL VIA OG. FARIA IN PLACE AND DRAINING TO GRAVITY. WILL REPORT TO AM RN WHEN AVAILABLE.
--- NOTE | 2021-03-11 15:28 | NUR ---
Pt's chest tubes need to be replaced, as they are no longer working properly. Pt's condition remains tentatinve at best.
--- NOTE | 2021-03-11 20:00 | NUR ---
RECEIVED REPORT FROM VANESSA. PT IN BED ON VENTILATOR PC 25/20 PEEP 10 40% FIO2. PT WITH OCC COUGH, MINIMAL RETURN VIA ETT SUCTION. CLEAR ORAL SECRETIONS, ABDOMEN SOFT, SLIGHTLY DISTENDED, GOOD BOWEL TONES, FARIA TO GRAVITY DRAINAGE. NO SPONTANEOUS MOVEMENTS, NO EYE OPENING. ON PROPOFOL @ 45 MCG/KG/MIN, WAS INCREASED DURING REPORT. LEVOPHED CONTINUES @ 7 MCG/MIN, BP STABLE. CHEST TUBES BLEEDING AT THE INSERTION SITES, DRIPPING DOWN PT'S SIDE.
[2021-03-12 04:10] LABS: BASOPHILS ABSOLUTE AUTO 0.04 K/mm3 (0.00-0.23); BASOPHILS PERCENT AUTO 0 % (0-2); EOSINOPHILS ABSOLUTE AUTO 0.13 K/mm3 (0.00-0.68); EOSINOPHILS PERCENT AUTO 1 % (0-6); Hematocrit 26.3 % (37.0-53.0); Hemoglobin 8.5 g/dL (13.5-17.5); IMMATURE GRAN ABSOLUTE AUTO 0.92 K/mm3 (0.00-0.10); IMMATURE GRAN PERCENT AUTO 5 % (0-1); LYMPHOCYTES ABSOLUTE AUTO 3.99 K/mm3 (0.84-5.20); LYMPHOCYTES PERCENT AUTO 20 % (21-46); MONOCYTES ABSOLUTE AUTO 1.91 K/mm3 (0.16-1.47); MONOCYTES PERCENT AUTO 9 % (4-13); Mean Corpuscular HGB 32.1 pg (26.0-34.0); Mean Corpuscular HGB Conc 32.3 g/dL (31.5-36.5); Mean Corpuscular Volume 99 fL (80-100); Mean Platelet Volume 10.6 fL (9.1-12.4); NEUTROPHILS ABSOLUTE AUTO 13.31 K/mm3 (1.96-9.15); NEUTROPHILS PERCENT AUTO 66 % (41-73); NRBC ABSOLUTE 0.75 K/mm3 (0.00-0.02); NRBC Auto 3.7 /100 WBC (0.0-0.2); Platelet Count 285 K/mm3 (150-400); RDW Coefficient Variation 17.2 % (11.7-14.2); RDW Standard Deviation 54.2 fL (35.1-46.3); Red Blood Cell Count 2.65 M/mm3 (4.30-5.90)
[2021-03-12 04:27] LABS: Albumin, Blood 1.7 g/dL (3.4-5.0); Anion Gap 0 mmol/L (6-16); Blood Urea Nitrogen 14 mg/dL (8-24); CO2, Blood 38 mmol/L (21-32); Calcium, Blood 8.5 mg/dL (8.5-10.1); Chloride, Blood 103 mmol/L (98-108); Creatinine, Blood 0.36 mg/dL (0.60-1.20); Glomerular Filtration Rate >60 (60-); Glucose, Blood 127 mg/dL (70-99); Phosphorus, Blood 3.2 mg/dL (2.5-4.9); Potassium, Blood 3.8 mmol/L (3.5-5.5); Sodium, Blood 141 mmol/L (136-145)
--- NOTE | 2021-03-12 06:29 | NUR ---
ROLY WAS COMFORTABLE FOR MOST OF THE SHIFT, AROUND 0400, HE BEGAN HAVING AN IRREGULAR BREATHING PATTERN WITH HEAD MOVEMENT. HE WAS MEDICATED PER JUL WITH GOOD RELIEF. AROUND 0600 HE BEGAN DOING THE SAME THING WITH MORE LABORED BREATHING, TACHYCARDIA TO THE 130'S, HANDS PURPLE AND COOL, BIOX NOT READING IN MULTIPLE LOCATIONS. AGAIN MEDICATED PER JUL, WITH MINIMAL RESULTS. NOTIFICATION WAS MADE TO NEXT OF KIN, MESSAGE LEFT. HE CONTINUES ON PC 25/20, FIO2 TO 65%. CHEST TUBES X 2 TO THE RIGHT CHEST, CONTINUE TO OOZE FROM INSERTION SITE, JUST OVER 100ML OUT THIS SHIFT FROM NEW TUBE. THICK RED RETURN. PIVOT 1.5 TF CONT AT 40ML/HR WITH 30ML FLUSHES OF H20 Q4. BLOOD SUGARS HAVE DECREASED T/O SHIFT. FARIA WITH GOOD URINE OUTPUT >1500. SKIN CONTINUES TO BE FRAGILE AND ECCHYMOTIC, OOZING FROM THE UPPER ARMS, FINGERS COLD. RIGHT FOOT REMAINS COOLER THAN LEFT. SCD'S IN PLACE T/O SHIFT. AT THIS TIME, ROLY HAS RETURNED TO 80'S HR, SATS MID 90'S, BP 110/63. WILL CONTINUE TO MONITOR AND REPORT TO NEXT SHIFT.
--- NOTE | 2021-03-12 09:50 | NUR ---
0705: SBAR FROM WIL MONTIEL. EMERGENCY EQUIPMENT AT BEDSIDE AND FUNCTION. PROPFOL AT 45MCG/KG/MIN, NOREPI AT 5MCG/MIN, CARDIZEM OFF, FENTANYL 7 5MCG/HR. CHEST TUBES ASSESSED W/ NO NOTED AIR LEAKS AND DRESSING INTACT W/ DRAINAGED NOTED POSTERIORLY AT SITE.
--- NOTE | 2021-03-12 16:16 | NUR ---
SHIFT SUMMARY NEURO: NO CHANGE. PROPOFOL REMAINS AT 45MCG/KG/MIN AND FENTANYL 75MCG/HR. GAVE ONE DOSE PRN FENTANYL FOR RESTLESSNESS. CARDIAC: AFIB W/ INTERMITTENT RVR AND STABLE BP THROUGHOUT SHIFT. INCREASED LEVOPHED TO 8MCG/MIN. AFEBRILE. SIGNFICANT PERIPHERAL EDEMA. RESP: CHEST TUBE #2 RECEIVED CATH-FLOW THAT WAS IN-SITU X 1 HR TO MINIMAL EFFECT. ASTON-INSERTION SITE SANGUINEOUS DRAINAGE CONTINUES, MODERATE AMOUNT. SEE I/O'S FOR CT OUTPUT. CHEST TUBE DRESSINGS CHANGED AND TUBING SECURED. GI/: UOP ADEQUATE. TF CONTINUE, RESIDUALS <15ML. NO BM DURING THIS SHIFT OF 1620. MK/SKIN: RESTRAINTS PERSIST. NO NEW BRUISING NOTED DURING SHFIT. PSYCH: SIGNIFICANT OTHER VISITED PATIENT TODAY AND RECEIVED A TELEPHONE UPDATE.
--- NOTE | 2021-03-12 19:44 | NUR ---
Assumed care. Report recieved from [email or web address] RN. PT in bed, sedated and ventilated. Vent settings: AC/PC 25, 22/10, 55% Fi02. OG tube in place, tube feed running at 40 ml/hr. PICC line in GINI, wnl, IV pump settings: Levophed 6 mcg/min, Propofol 45 mcg/kg/min, Fentanyl AUTOMATED WEAVER 75 mcg/hr, NS on standby. Chest tubes in place, r/axillary x2, 20 cm water suction. Handley catheter in place, draining sathya/yellow urine. No acute needs noted at this time, will continue to monitor.
[2021-03-13 04:02] LABS: BASOPHILS ABSOLUTE AUTO 0.07 K/mm3 (0.00-0.23); BASOPHILS PERCENT AUTO 0 % (0-2); EOSINOPHILS ABSOLUTE AUTO 0.18 K/mm3 (0.00-0.68); EOSINOPHILS PERCENT AUTO 1 % (0-6); Hematocrit 23.6 % (37.0-53.0); Hemoglobin 7.6 g/dL (13.5-17.5); IMMATURE GRAN ABSOLUTE AUTO 1.56 K/mm3 (0.00-0.10); IMMATURE GRAN PERCENT AUTO 7 % (0-1); LYMPHOCYTES ABSOLUTE AUTO 3.64 K/mm3 (0.84-5.20); LYMPHOCYTES PERCENT AUTO 17 % (21-46); MONOCYTES ABSOLUTE AUTO 1.73 K/mm3 (0.16-1.47); MONOCYTES PERCENT AUTO 8 % (4-13); Mean Corpuscular HGB 32.3 pg (26.0-34.0); Mean Corpuscular HGB Conc 32.2 g/dL (31.5-36.5); Mean Corpuscular Volume 100 fL (80-100); Mean Platelet Volume 10.6 fL (9.1-12.4); NEUTROPHILS ABSOLUTE AUTO 14.64 K/mm3 (1.96-9.15); NEUTROPHILS PERCENT AUTO 67 % (41-73); NRBC ABSOLUTE 1.02 K/mm3 (0.00-0.02); NRBC Auto 4.7 /100 WBC (0.0-0.2); Platelet Count 274 K/mm3 (150-400); RDW Coefficient Variation 17.3 % (11.7-14.2); RDW Standard Deviation 55.4 fL (35.1-46.3); Red Blood Cell Count 2.35 M/mm3 (4.30-5.90); White Blood Cell Count 21.82 K/mm3 (4.00-11.30)
[2021-03-13 04:19] LABS: Albumin, Blood 1.5 g/dL (3.4-5.0); Anion Gap 0 mmol/L (6-16); Blood Urea Nitrogen 16 mg/dL (8-24); Bun/Creatinine Ratio 44.1 (12.0-20.0); CO2, Blood 39 mmol/L (21-32); Chloride, Blood 102 mmol/L (98-108); Creatinine, Blood 0.36 mg/dL (0.60-1.20); Glomerular Filtration Rate >60 (60-); Glucose, Blood 106 mg/dL (70-99); Phosphorus, Blood 2.7 mg/dL (2.5-4.9); Potassium, Blood 3.6 mmol/L (3.5-5.5); Sodium, Blood 141 mmol/L (136-145)
[2021-03-13 04:36] LABS: BAND PERCENT MAN 1 % (0-8); BASOPHILS PERCENT MAN 0 % (0-2); EOSINOPHILS ABSOLUTE MAN 0.43 K/mm3 (0.00-0.68); EOSINOPHILS PERCENT MAN 2 % (0-6); LYMPHOCYTES PERCENT MAN 11 % (21-46); METAMYELOCYTE ABSOLUTE MAN 0.21 K/mm3 (0.00-0.00); METAMYELOCYTE PERCENT MAN 1 % (0-0); MONOCYTES ABSOLUTE MAN 1.52 K/mm3 (0.16-1.47); MONOCYTES PERCENT MAN 7 % (4-13); MYELOCYTE ABSOLUTE MAN 0.21 K/mm3 (0.00-0.00); MYELOCYTE PERCENT MAN 1 % (0-0); NEUTROPHILS ABSOLUTE MAN 17.01 K/mm3 (1.96-9.15); SEG NEUTROPHILS PERCENT MAN 77 % (41-73); TOTAL CELLS COUNTED 100
--- NOTE | 2021-03-13 06:25 | NUR ---
Shift summary. Pt continues in bed, sedated and on ventilator. Vent settings AC/PC 25, 22/10, 80% Fi02. OG tube in place, tube feed running at 30 ml/hr. R/anterior and R/lateral chest tubes in place, to -20 water suction, draining sanguenous fluid from both. PICC in TAB, IV pump settings: Levophed at 5 mcg/min, Propofol 55 mcg/kg/min, Fentanyl MANAGER BUSINESS MANAGEMENT 75 mcg/hr. Handley catheter in place, draining yellow urine, 1200 out this shift. Pt recieved several PRN doses of ativan for sedation/vent compliance throughout shift. See shift assessment/flowsheet for details. Will continue to monitor and report off to dayshift RN.
--- NOTE | 2021-03-13 18:35 | NUR ---
PT STABLE, INTUBATED AND SEDATED WITH PROPOFOL AND FENTANYL FOR COMFORT. PT BECAME HEMODYNAMIC UNSTABLE WHILE MOVING FOR CHEST XRAY, ATIVAN IV WAS GIVEN BY RN, PT STARTED TO BECOME MORE STABLE AFTER. CAME TO VISIT
--- NOTE | 2021-03-13 19:19 | NUR ---
Assumed care. Report recieved from rodríguez MONTIEL. Pt in bed, sedated and on ventilator. Vent settings: AC/PC 25, 22/10, 80% Fi02. OG tube in place, tube feed running at 30 ml/hr. R/lateral chest tubes x2 in place, -20 water suction applied. PICC in [facility]. IV pump settings: Levophed 8 mcg/min, Propofol 55 mcg/kg/min, NS on standby. Handley catheter in place, draining yellow urine. No acute needs noted at this time, will continue to monitor.
[2021-03-14 04:25] LABS: BASOPHILS ABSOLUTE AUTO 0.07 K/mm3 (0.00-0.23); BASOPHILS PERCENT AUTO 0 % (0-2); EOSINOPHILS ABSOLUTE AUTO 0.19 K/mm3 (0.00-0.68); EOSINOPHILS PERCENT AUTO 1 % (0-6); Hematocrit 26.9 % (37.0-53.0); Hemoglobin 8.5 g/dL (13.5-17.5); IMMATURE GRAN ABSOLUTE AUTO 0.99 K/mm3 (0.00-0.10); IMMATURE GRAN PERCENT AUTO 5 % (0-1); LYMPHOCYTES PERCENT AUTO 15 % (21-46); MONOCYTES ABSOLUTE AUTO 1.57 K/mm3 (0.16-1.47); MONOCYTES PERCENT AUTO 9 % (4-13); Mean Corpuscular HGB 31.8 pg (26.0-34.0); Mean Corpuscular HGB Conc 31.6 g/dL (31.5-36.5); Mean Corpuscular Volume 101 fL (80-100); Mean Platelet Volume 10.8 fL (9.1-12.4); NEUTROPHILS ABSOLUTE AUTO 12.93 K/mm3 (1.96-9.15); NEUTROPHILS PERCENT AUTO 70 % (41-73); NRBC ABSOLUTE 0.53 K/mm3 (0.00-0.02); NRBC Auto 2.9 /100 WBC (0.0-0.2); Platelet Count 287 K/mm3 (150-400); RDW Coefficient Variation 17.3 % (11.7-14.2); RDW Standard Deviation 58.3 fL (35.1-46.3); Red Blood Cell Count 2.67 M/mm3 (4.30-5.90); White Blood Cell Count 18.55 K/mm3 (4.00-11.30)
[2021-03-14 04:43] LABS: BAND PERCENT MAN 2 % (0-8); BASOPHILS ABSOLUTE MAN 0.18 K/mm3 (0.00-0.23); BASOPHILS PERCENT MAN 1 % (0-2); EOSINOPHILS ABSOLUTE MAN 0.37 K/mm3 (0.00-0.68); EOSINOPHILS PERCENT MAN 2 % (0-6); LYMPHOCYTES ABSOLUTE MAN 1.85 K/mm3 (0.84-5.20); LYMPHOCYTES PERCENT MAN 10 % (21-46); METAMYELOCYTE ABSOLUTE MAN 0.55 K/mm3 (0.00-0.00); METAMYELOCYTE PERCENT MAN 3 % (0-0); MONOCYTES ABSOLUTE MAN 0.55 K/mm3 (0.16-1.47); MONOCYTES PERCENT MAN 3 % (4-13); MYELOCYTE ABSOLUTE MAN 0.37 K/mm3 (0.00-0.00); MYELOCYTE PERCENT MAN 2 % (0-0); NEUTROPHILS ABSOLUTE MAN 14.65 K/mm3 (1.96-9.15); SEG NEUTROPHILS PERCENT MAN 77 % (41-73); TOTAL CELLS COUNTED 100
[2021-03-14 04:45] LABS: Alanine Aminotransfer (ALT/SGP 27 U/L (12-78); Albumin, Blood 1.5 g/dL (3.4-5.0); Albumin/Globulin Ratio 0.4 (0.8-1.8); Alk Phos 69 U/L (50-136); Anion Gap 2 mmol/L (6-16); Aspartate Aminotrans (AST/SGOT 26 U/L (12-37); Bilirubin, Direct 0.2 mg/dL (0.0-0.3); Bilirubin, Indirect 0.2 mg/dL (0.1-0.7); Bilirubin, Total 0.4 mg/dL (0.1-1.0); Blood Urea Nitrogen 14 mg/dL (8-24); Bun/Creatinine Ratio 36.7 (12.0-20.0); CO2, Blood 36 mmol/L (21-32); Calcium, Blood 8.5 mg/dL (8.5-10.1); Chloride, Blood 103 mmol/L (98-108); Creatinine, Blood 0.38 mg/dL (0.60-1.20); Globulin, Blood 4.1 g/dL (2.2-4.0); Glomerular Filtration Rate >60 (60-); Glucose, Blood 106 mg/dL (70-99); Phosphorus, Blood 3.7 mg/dL (2.5-4.9); Potassium, Blood 3.7 mmol/L (3.5-5.5); Sodium, Blood 141 mmol/L (136-145); Total Protein, Blood 5.6 g/dL (6.4-8.2)
--- NOTE | 2021-03-14 06:24 | NUR ---
Shift summary. Pt continues in bed, sedated and ventilated. Vent settings: AC/PC 25, 22/10, 80% Fi02. OG tube in place, tube feed running at 30 ml/hr. Chest tubes in place, R/lateral x2, -20 water suction applied. PICC in GINI, IV pump settings: Levophed 8 mcg/min, Propofol 55 mcg/kg/min, Fentanyl JEWELRY INSPECTOR 75 mcg/hr. Handley catheter in place, draining yellow urine, 1650 out this shift. No BM this shift, PRN bowel care given. See shift assessment for details, will continue to monitor and report off to dayshift RN.
--- NOTE | 2021-03-14 12:22 | NUR ---
Review of pt with nursing is wanting to stay the course. Will follow up.
[2021-03-15 03:56] LABS: BASOPHILS ABSOLUTE AUTO 0.06 K/mm3 (0.00-0.23); BASOPHILS PERCENT AUTO 0 % (0-2); EOSINOPHILS ABSOLUTE AUTO 0.16 K/mm3 (0.00-0.68); EOSINOPHILS PERCENT AUTO 1 % (0-6); Hematocrit 25.9 % (37.0-53.0); Hemoglobin 8.3 g/dL (13.5-17.5); IMMATURE GRAN ABSOLUTE AUTO 1.02 K/mm3 (0.00-0.10); IMMATURE GRAN PERCENT AUTO 6 % (0-1); LYMPHOCYTES ABSOLUTE AUTO 3.33 K/mm3 (0.84-5.20); LYMPHOCYTES PERCENT AUTO 18 % (21-46); MONOCYTES ABSOLUTE AUTO 1.48 K/mm3 (0.16-1.47); MONOCYTES PERCENT AUTO 8 % (4-13); Mean Corpuscular HGB 32.2 pg (26.0-34.0); Mean Corpuscular Volume 100 fL (80-100); Mean Platelet Volume 10.9 fL (9.1-12.4); NEUTROPHILS ABSOLUTE AUTO 12.48 K/mm3 (1.96-9.15); NEUTROPHILS PERCENT AUTO 67 % (41-73); NRBC ABSOLUTE 0.81 K/mm3 (0.00-0.02); NRBC Auto 4.4 /100 WBC (0.0-0.2); Platelet Count 339 K/mm3 (150-400); RDW Coefficient Variation 17.5 % (11.7-14.2); RDW Standard Deviation 60.3 fL (35.1-46.3); Red Blood Cell Count 2.58 M/mm3 (4.30-5.90); White Blood Cell Count 18.53 K/mm3 (4.00-11.30)
[2021-03-15 04:10] LABS: Albumin, Blood 1.5 g/dL (3.4-5.0); Anion Gap 1 mmol/L (6-16); Blood Urea Nitrogen 13 mg/dL (8-24); Bun/Creatinine Ratio 38.9 (12.0-20.0); CO2, Blood 37 mmol/L (21-32); Calcium, Blood 8.1 mg/dL (8.5-10.1); Chloride, Blood 100 mmol/L (98-108); Creatinine, Blood 0.33 mg/dL (0.60-1.20); Glomerular Filtration Rate >60 (60-); Glucose, Blood 109 mg/dL (70-99); Potassium, Blood 3.8 mmol/L (3.5-5.5); Sodium, Blood 138 mmol/L (136-145)
--- NOTE | 2021-03-15 06:01 | NUR ---
SHIFT SUMMARY PT REMAINS INTUBATED AND SEDATED c PROPOFOL @ 55MCG/KG/MIN AND FENTANYL @ 75MCG/HR. VENT SETTINGS-AC/PC: 25, 22/10 @ 55% c O2 SATS >88%. LS CLEARING T/O THE MORNING, SCANT SECRETIONS SUCTIONED VIA ETT. R LATERAL CHEST TUBES IN PLACE c -20CM H2O SUCTION. SLOW OOZING OF SANGUINEOUS FLUID FROM CHEST TUBE SITE. #2 CT TREATED c CATHFLO YESTERDAY, 140CC FLUID OUT FROM TUBE AFTER. #1 CT CLOTTED, NO OUTPUT. OGT c TF @ GOAL. FARIA CATH c 1150CC OUT. NO ACUTE CHANGES IN PT CONDITION THIS SHIFT. REPORT TO ONCOMING NURSE.
[2021-03-15 06:05] LABS: BAND PERCENT MAN 4 % (0-8); BASOPHILS PERCENT MAN 0 % (0-2); EOSINOPHILS PERCENT MAN 0 % (0-6); LYMPHOCYTES ABSOLUTE MAN 2.77 K/mm3 (0.84-5.20); LYMPHOCYTES PERCENT MAN 15 % (21-46); MONOCYTES ABSOLUTE MAN 2.22 K/mm3 (0.16-1.47); MONOCYTES PERCENT MAN 12 % (4-13); MYELOCYTE ABSOLUTE MAN 0.55 K/mm3 (0.00-0.00); MYELOCYTE PERCENT MAN 3 % (0-0); NEUTROPHILS ABSOLUTE MAN 12.97 K/mm3 (1.96-9.15); SEG NEUTROPHILS PERCENT MAN 66 % (41-73); TOTAL CELLS COUNTED 100
--- NOTE | 2021-03-15 14:57 | NUR ---
Met pt. lying in bed , still in vent , the was in the room on visit had a nice visit with the and we prayed for the pt.
--- NOTE | 2021-03-15 18:56 | NUR ---
PT REMAIN INTUBATED AND SEDATED. DR. TALAVERA PERFORMED CATHFLOW INFUSING TPA VIA CHEST TUBE, PT STABLE, DR. TALAVERA SPOKE TO PT AT BEDSIDE. LEVO 6 FENTANYL 75 PROPOFOL 50
[2021-03-16 06:24] LABS: BASOPHILS ABSOLUTE AUTO 0.09 K/mm3 (0.00-0.23); BASOPHILS PERCENT AUTO 0 % (0-2); EOSINOPHILS ABSOLUTE AUTO 0.17 K/mm3 (0.00-0.68); EOSINOPHILS PERCENT AUTO 1 % (0-6); Hematocrit 26.3 % (37.0-53.0); Hemoglobin 8.1 g/dL (13.5-17.5); IMMATURE GRAN ABSOLUTE AUTO 0.93 K/mm3 (0.00-0.10); IMMATURE GRAN PERCENT AUTO 5 % (0-1); LYMPHOCYTES ABSOLUTE AUTO 3.41 K/mm3 (0.84-5.20); LYMPHOCYTES PERCENT AUTO 17 % (21-46); MONOCYTES ABSOLUTE AUTO 1.79 K/mm3 (0.16-1.47); MONOCYTES PERCENT AUTO 9 % (4-13); Mean Corpuscular HGB 31.3 pg (26.0-34.0); Mean Corpuscular HGB Conc 30.8 g/dL (31.5-36.5); Mean Corpuscular Volume 102 fL (80-100); Mean Platelet Volume 10.7 fL (9.1-12.4); NEUTROPHILS ABSOLUTE AUTO 13.88 K/mm3 (1.96-9.15); NEUTROPHILS PERCENT AUTO 69 % (41-73); NRBC ABSOLUTE 1.15 K/mm3 (0.00-0.02); NRBC Auto 5.7 /100 WBC (0.0-0.2); Platelet Count 342 K/mm3 (150-400); RDW Coefficient Variation 17.4 % (11.7-14.2); RDW Standard Deviation 61.1 fL (35.1-46.3); Red Blood Cell Count 2.59 M/mm3 (4.30-5.90); White Blood Cell Count 20.27 K/mm3 (4.00-11.30)
[2021-03-16 06:39] LABS: Albumin, Blood 1.4 g/dL (3.4-5.0); Anion Gap 3 mmol/L (6-16); Blood Urea Nitrogen 11 mg/dL (8-24); CO2, Blood 35 mmol/L (21-32); Calcium, Blood 8.3 mg/dL (8.5-10.1); Chloride, Blood 100 mmol/L (98-108); Creatinine, Blood 0.37 mg/dL (0.60-1.20); Glomerular Filtration Rate >60 (60-); Glucose, Blood 111 mg/dL (70-99); Potassium, Blood 3.6 mmol/L (3.5-5.5); Sodium, Blood 138 mmol/L (136-145)
--- NOTE | 2021-03-16 06:47 | NUR ---
END OF SHIFT SUMMARY: Afib with RVR 100s - 140s. Intermittent use of levo gtt. Currently on standby. Vent ACPC continues (FiO2 change to 75%) Rhonchi lung sounds bilaterally. Heavy amount of oral and inline secretions. CT #1 has clot. Unable to strip due to location of clot in tubing at insertion site. CT #2 has sangenous output. Dressing changed for both insertion sites. Attempted to wean/titrate propofol at beginning of shift due to no response/withdraw to pain, but unsuccessfull due to breath stacking and increased coughing. Propofol now on 65mcg/kg/min. Corneal, blink, gag, and cough reflexes present. Tahcypnic RR. Required PRN ativan for RR > 40. OGT - TF at goal - no changes from previous shift. No BM overnight. Emmanuelle is ADRIAN. Bath HS. Wound appearing to be stage 3 on RUE/forearm covered with gauze and tape.
--- NOTE | 2021-03-16 14:15 | NUR ---
Pt. in bed resting , pastoral visit is taken care of.
--- NOTE | 2021-03-16 15:18 | NUR ---
CATHFLOW USING TPA DONE BY DR. TALAVERA AT 1430
--- NOTE | 2021-03-16 18:44 | NUR ---
PT STABLE, REMAINS INTUBATED AND SEDATED. DR. TALAVERA IRRIGATED CHEST TUBE WITH TPA, NO DISTRESS. NEW VENT SETTINGS: ACPC PEEP 5, FIO2 60% CAME TO VISIT
--- NOTE | 2021-03-16 20:00 | NUR ---
accessment completed. reting quietly and no distress noted.
--- NOTE | 2021-03-17 01:51 | NUR ---
PT'S VENTILATOR ALARMING, CAME TO THE THE ROOM, RAPID RESPIRATORY RATE, SATS DROPPING, 100% FIO2 GIVEN, ATIVAN 2MG GIVEN, UNABLE TO VERBALLY CALM PATIENT, SUCTIONED, WITH THICK WHITE RETURN. CONTINUES WITH RAPID RESPIRATORY RATE, SATS HANGING MID 80S. RESPIRATORY CARE CALLED.
--- NOTE | 2021-03-17 02:00 | NUR ---
blood pressure elevated, norepi turned off, will continue to monitor. RT to room to assess and vent settings changed. PEEP increased to 8 with FIO2 at 100%. Turned to left side. O2 sats high 80's with vent changes.
[2021-03-17 04:28] LABS: BASOPHILS ABSOLUTE AUTO 0.02 K/mm3 (0.00-0.23); BASOPHILS PERCENT AUTO 0 % (0-2); EOSINOPHILS ABSOLUTE AUTO 0.05 K/mm3 (0.00-0.68); EOSINOPHILS PERCENT AUTO 0 % (0-6); Hemoglobin 8.1 g/dL (13.5-17.5); IMMATURE GRAN ABSOLUTE AUTO 0.51 K/mm3 (0.00-0.10); IMMATURE GRAN PERCENT AUTO 2 % (0-1); LYMPHOCYTES PERCENT AUTO 12 % (21-46); MONOCYTES ABSOLUTE AUTO 1.31 K/mm3 (0.16-1.47); MONOCYTES PERCENT AUTO 6 % (4-13); Mean Corpuscular HGB 35.2 pg (26.0-34.0); Mean Corpuscular HGB Conc 35.2 g/dL (31.5-36.5); Mean Corpuscular Volume 100 fL (80-100); Mean Platelet Volume 11.2 fL (9.1-12.4); NEUTROPHILS ABSOLUTE AUTO 17.01 K/mm3 (1.96-9.15); NEUTROPHILS PERCENT AUTO 79 % (41-73); NRBC ABSOLUTE 0.58 K/mm3 (0.00-0.02); NRBC Auto 2.7 /100 WBC (0.0-0.2); Platelet Count 349 K/mm3 (150-400); RDW Coefficient Variation 17.5 % (11.7-14.2); RDW Standard Deviation 59.6 fL (35.1-46.3)
[2021-03-17 05:02] LABS: Albumin, Blood 1.3 g/dL (3.4-5.0); Anion Gap 0 mmol/L (6-16); Blood Urea Nitrogen 11 mg/dL (8-24); CO2, Blood 37 mmol/L (21-32); Chloride, Blood 94 mmol/L (98-108); Creatinine, Blood 0.34 mg/dL (0.60-1.20); Glomerular Filtration Rate >60 (60-); Glucose, Blood 108 mg/dL (70-99); Potassium, Blood 4.5 mmol/L (3.5-5.5); Sodium, Blood 131 mmol/L (136-145)
[2021-03-17 05:05] LABS: Triglycerides 1781 mg/dL (30-160)
--- NOTE | 2021-03-17 06:44 | NUR ---
RESTING QUIETLY AT THIS TIME WITH NO DISTRESS. TITRATION OF LEVO UP TO 8 MCG/MIN DUE TO BLOOD PRESSURE DROPPING. HOSPITALIST INFORMED OF MORNING LABS AND ORDER RECIEVED. TOLERATING VENT AND SATS STABILIZED WITH INCREASED VENT SETTINGS. EDEMA INCREASING THROUGH NIGHT, PROTECTIVE DRESSING ADDED TO RIGHT ELBOW DUE TO EDEMA CAUSING SKIN TO BE FRAGILE AND INCREASED RISK.
--- NOTE | 2021-03-17 08:00 | NUR ---
ASSUMED CARE FROM PM RN EARL, PATIENT SEDATED, NO DISTRESS, DIAHPORETIC, UNABLE TO MAKE NEEDS KNOWN, NO RESPONSE TO STIMULUS, LIMBS FLACCED, REPOSITIONED, HYPOTENSIVE SBP 80S, MEAN 60-70, ORAL CARE, RESIDENT DR BASSETT ROUNDED, REPORTED TRIGLYCERIDES, POSSIBLE BLOOD THINNER?, LAST BM 03/11/21, MEDICATED WITH COLACE, NO NEW ORDERS AT THIS TIME, TM
--- NOTE | 2021-03-17 09:00 | NUR ---
UPDATED DR. TALAVERA AND DR. BASSETT ON PATIENT STATUS. INFORMED THAT WBCS INCREASING. INFORMED THAT SODIUM 131. INFORMED THAT YEAST IN SPUTUM. INFORMED THAT TRIGLYCERIDES 1781 THIS AM. INFORMED THAT PROPOFOL AT 65 MCG/ KG/ MINUTE AND THAT PATIENT GIVEN SEVERAL DOSES OF PRN ATIVAN ON BODY ENGINEER. INFORMED THAT PATIENT POSITIVE 2 L FLUID BALANCE. INFORMED THAT PATIENT TAKEN OFF ANTICOAGULANTS FOR TRACH PLACEMENT ON 03/08 BUT TRACH NOT PLACED DUE TO PATIENT NOT BEING STABLE. INFORMED THAT NO ANTICOAGULANTS HAVE BEEN RESTARTED. INFORMED THAT PATIENT REMAINS IN A. FIB. INFORMED THAT SMALL BLOOD CLOTS NOTED IN URINE DRAINING INTO FARIA. INFORMED THAT LEVOPHED OFF ON BODY ENGINEER BUT THEN HAD TO BE TURNED BACK UP TO 8 MCG/ MINUTE FOR HYPOTENSION FROM HAVING TO INCREASE PROPOFOL AND GIVEN PRN DOSES OF ATIVAN. INFORMED THAT FIO2 INCREASED FROM 60 TO 100 ON BODY ENGINEER. NO ORDERS OBTAINED AT THIS TIME.
--- NOTE | 2021-03-17 13:12 | NUR ---
REPORTED TO DR BURGOS, CALRIFYING IF PATIENT SHOULD BE RESTARTED ON LOVENOX OR IF TRACH IS OR IS NOT GOING TO BE PLACED, DR BURGOS ON HIS WAY TO ROUND ON THE PATIENT
--- NOTE | 2021-03-17 13:22 | NUR ---
DR BURGOS ROUNDED ON PATIENT AND DR TALAVERA, PATIENT TO BE RE-EVALUATED IN THE AM FOR POSSIBLE TRACH PLACEMENT, REPORTED TO BOTH DR THAT NO PROPHALACTIC BLOOD THINNER GIVEN SINCE THE 03/08/21, TM
--- NOTE | 2021-03-17 18:52 | NUR ---
INTUBATED, ON PRECEDEX, PROPOFOL ON SB, LEFT LUNG FIELD IMPROVED FROM THIS AM, +PE FOUND DURING CT, PATIENT WOKE UP DURING CT, TRACKED STAFF AND MOVED LEFT ARM, SBP 90-120S, MAP 50-70, OG RESIDUAL AT 30 FOR THE DAY, RIGHT CHEST TUBES DRESSING CHANGED, FIO2 DECREASED TO 65%, PEEP 12, UNABLE TO MAKE NEEDS KNOW, REPOSITIONED THROUGH OUT THE DAY, WILL RELAY TO PM RN
--- NOTE | 2021-03-17 19:00 | NUR ---
Report recieved and assumed care. resting quietly with no apparent distress at this time.
--- NOTE | 2021-03-17 21:00 | NUR ---
ativan given for increased agitation causing resp rate to increase into 40's. resting quietly at this time with no distress. responded well to ativan. levo remains on standby at this time.
[2021-03-18 02:08] LABS: BASOPHILS ABSOLUTE AUTO 0.06 K/mm3 (0.00-0.23); BASOPHILS PERCENT AUTO 0 % (0-2); EOSINOPHILS ABSOLUTE AUTO 0.05 K/mm3 (0.00-0.68); EOSINOPHILS PERCENT AUTO 0 % (0-6); Hematocrit 25.2 % (37.0-53.0); Hemoglobin 7.8 g/dL (13.5-17.5); IMMATURE GRAN ABSOLUTE AUTO 0.47 K/mm3 (0.00-0.10); IMMATURE GRAN PERCENT AUTO 2 % (0-1); LYMPHOCYTES ABSOLUTE AUTO 3.33 K/mm3 (0.84-5.20); LYMPHOCYTES PERCENT AUTO 13 % (21-46); MONOCYTES ABSOLUTE AUTO 1.63 K/mm3 (0.16-1.47); MONOCYTES PERCENT AUTO 7 % (4-13); Mean Corpuscular HGB 31.2 pg (26.0-34.0); Mean Corpuscular Volume 101 fL (80-100); Mean Platelet Volume 10.4 fL (9.1-12.4); NEUTROPHILS ABSOLUTE AUTO 19.61 K/mm3 (1.96-9.15); NEUTROPHILS PERCENT AUTO 78 % (41-73); NRBC ABSOLUTE 0.81 K/mm3 (0.00-0.02); NRBC Auto 3.2 /100 WBC (0.0-0.2); Platelet Count 405 K/mm3 (150-400); RDW Coefficient Variation 17.2 % (11.7-14.2); RDW Standard Deviation 60.4 fL (35.1-46.3); White Blood Cell Count 25.15 K/mm3 (4.00-11.30)
[2021-03-18 02:24] LABS: Magnesium, Blood 1.8 mg/dL (1.6-2.4)
[2021-03-18 02:25] LABS: Alanine Aminotransfer (ALT/SGP 29 U/L (12-78); Albumin, Blood 1.5 g/dL (3.4-5.0); Albumin/Globulin Ratio 0.4 (0.8-1.8); Alk Phos 82 U/L (50-136); Anion Gap 1 mmol/L (6-16); Aspartate Aminotrans (AST/SGOT 29 U/L (12-37); Bilirubin, Total 0.5 mg/dL (0.1-1.0); Blood Urea Nitrogen 16 mg/dL (8-24); Bun/Creatinine Ratio 51.8 (12.0-20.0); CO2, Blood 38 mmol/L (21-32); Calcium, Blood 8.5 mg/dL (8.5-10.1); Chloride, Blood 103 mmol/L (98-108); Creatinine, Blood 0.31 mg/dL (0.60-1.20); Globulin, Blood 4.1 g/dL (2.2-4.0); Glomerular Filtration Rate >60 (60-); Glucose, Blood 129 mg/dL (70-99); Phosphorus, Blood 2.9 mg/dL (2.5-4.9); Potassium, Blood 3.7 mmol/L (3.5-5.5); Total Protein, Blood 5.6 g/dL (6.4-8.2)
[2021-03-18 02:26] LABS: Sodium, Blood 142 mmol/L (136-145)
--- NOTE | 2021-03-18 02:47 | NUR ---
PTT LOW, HEPARIN INCREASED TO 17 UNIT PER ORDER FROM PHARMACY. ATIVAN GIVEN FOR AGITATION AFTER TURNING. RR INCREASING TO HIGH 40'S. RESPONSED WELL TO ATIVAN RESTING WITHOUT DISTRESS AT THIS TIME WITH RR 27
--- NOTE | 2021-03-18 06:07 | NUR ---
NO DISTRESS AT THIS TIME. ATIVAN GIVEN NEEDED THROUGH NIGHT FOR AGITATION, MAINLY AFTER REPOSITIONING, RR RATE INCREASING AND O2 SATS WILL DROP INTO LOW 80'S. RESPONDS WELL TO ATIVAN. TOLERATING PRECEDEX SEDATION. HAVE NOT RESTARTED ON PROPAFOL LEVO TITRATED NEEDED FOR B/P. HEPARIN DRIP RUNNING AT 17 UNITS WITH NEXT PTT TO BE DRAWN AT 0900. PICC LINE WILL NOT DRAW BLOOD, ALL LABS PER LAB STICK.
--- NOTE | 2021-03-18 08:37 | NUR ---
REPORT RECIEVED FROM MUSIC INTERN RN. NEURO PATIENT IS SEDATED WITH PRECEDEX AT 1.4 MCG/KG/HR AND FENTANYL AT 100 MCG/HR. ALLY PUPILS SIZE 7 AND BRISK. NO FOLLOWING COMMANDS, NO WITH DRAWING FROM PAINFUL STIMULI. HE DOESN'T COUGH WITH OR CARE OR DEEP SUCTIONING. HE DOESN'T REALLY APPEAR TO HAVE A GAG REFLEX EITHER. HE IS UNRESTRAINED AT THIS TIME. CARDIAC AFIB HR 90-100'S, BP 108/77 ON LEVOPHED GTT AT 3 MCG/MIN. PEDAL PULSES PER DOPPLER, RADIAL PULSES PALPABLE. GENERALIZED EDEMA, 2+. LUNGS COARSE IN UPPER LOBES, DIM IN LOWER LOBES. MINIMAL ETT SECRETIONS. MODERATE ORAL SECRETIONS. ORAL CARE DONE. VENT SETTINGS AC/PC PEEP 12 RATE SET AT 25 BUT BREATHING AT 30-50 PER MINUTE (GIVEN 4 MG ATIVAN TO SLOW BREATHING) FIO2 WAS 65%, HAD TO INCRESE TO 75%, HE KEPT DESTATING DOWN TO 84%. BOWEL TONE HYPER ACTIVE, NO BM IN 7 DAYS, WAS GIVEN PRUNE JUICE, MIRALX AND SENNAKOT X2 VIA OGT, AND DUCLOX VIA RECTUM. HE IS PASSING GAS. FARIA CATH YELLOW/ORANGE IN COLOR WITH SEDIMENT AND BLOOD CLOTS. DRESSING TO RIGHT ELBOW AND SACRAL DRESSING. MICONOZOLE POWDER TO GROIN. ASTON CARE DONE. TURNED TO LEFTSIDE WITH HELP OF LIFT. GINI PICC LINE FLUSHING AND WITH FLUIDS IN ALL PORTS RUNNING. TF AT 30 ML/HR WITH 4Q4 HR 30 ML H2O WATER FLUSHES. WITH MEDS THIS AM, 360 ML H2O/PRUNE JUICE.
--- NOTE | 2021-03-18 18:11 | NUR ---
KETAMINE GTT PER PHARMACY RANGE 5-20 MCG/KG/MIN DOSE RANGE, STARTED AT 5 MCG/KG/MIN USING ADDITIONAL SEDATION FOR RESPIRATORY RATE CONTROL, WITH ACTIVITY HE BREATHES UP TO 57/MIN PLAN TURN TUBE FEEDINGS OFF AT 0000. HEPRIN GTT OFF AT 0600. TO OR AT 0830 FOR TRACH PLACEMENT. OVERALL UNEVENTFUL DAY. TURNED Q2 HOURS. HE HAD A LARGE BM THIS MORNING AFTER MEDICATIONS GIVEN. HE WAS BATHED. CHEST TUBE TO NO SUCTION. PLAN FOR MORNING CHEST XRAY TO EVALUATE PLEURAL EFFUSSION. NO CHANGES TO VENT SETTINGS.
--- NOTE | 2021-03-18 19:00 | NUR ---
ASSUME CARE NOTE: PT INTUBATED AND SEDATED WITH NO COUGH OR GAG REFLEX. HE GRIMACES TO ORAL CARE AND HIS RESPIRATORY RATE INCREASES WITH TURNS BUT NO RESPONSE TO PAINFUL STIMULI. VENT SETTINGS ARE AC/PC R: 25 PC: 22 PEEP: 12 FIO2: 60%. HEPARIN INFUSING AT 17 UNITS, LEVO AT 3MCG/MIN, PRECEDEX AT 1.4MCG/KG/HR, FENTANYL AT 100, AND KETAMINE AT 5MCG/KG/MIN. VITALS ARE ALL CURRENTLY WNL. FARIA IS DRAINING ORANGE CLOUDY URINE TO GRAVITY. OGT IN PLACE WITH TF RUNNING AT GOAL. 2 RIGHT LATERAL WATER SEALED CHEST TUBES IN PLACE WITH DRESSING C/D/I. THERE IS GENERALIZED BRUISING TO THE ABDOMEN AND A MEPILEX IN PLACE ON THE RIGHT ELBOW. SEE SHIFT ASSESSMENT FOR DETAILS.
--- NOTE | 2021-03-18 19:30 | NUR ---
UPDATE: HEPARIN NOTICED NEW ORDER TO INCREASE HEPARIN TO 21 UNITS. AFTER SPEAKING WITH CHARGE, RN SHE ADVISED TO SPEAK WITH PHARMACY FOR CLARIFICATION FOR SUCH A HIGH INCREASE. SPOKE WITH EVELYN IN PHARMACY WHO STATES THE HEPARIN SHOULD HAVE BEEN INCREASED TO 19 UNITS THE MORNING. INFORMED HER THAT IT WAS NOT AND IS STILL RUNNING AT 17 UNITS. SHE STATES TO INCREASE TO 19 UNITS AND REPLACED THE ORDER. CHARGE, RN TO MAKE INCIDENT REPORT ON MED ERROR.
--- NOTE | 2021-03-18 22:38 | NUR ---
UPDATE: SEDATION SINCE START OF SHIFT MAXED PT ON KETAMINE DRIP AND GIVEN ATIVAN PRN BUT RATE IS STILL IN 50'S AND HE DESATS TO THE MID-70'S. APPLIED A BIS MONITOR AND HE RANGES FROM 60-80'S. SPOKE WITH DR. TALAVERA WHO ORDERED VERSED DRIP FOR ADDITIONAL SEDATION.
[2021-03-19 03:27] LABS: Hematocrit 25.7 % (37.0-53.0); Hemoglobin 7.9 g/dL (13.5-17.5); Mean Corpuscular HGB 30.6 pg (26.0-34.0); Mean Corpuscular HGB Conc 30.7 g/dL (31.5-36.5); Mean Corpuscular Volume 100 fL (80-100); Mean Platelet Volume 10.4 fL (9.1-12.4); NRBC ABSOLUTE 1.77 K/mm3 (0.00-0.02); Platelet Count 395 K/mm3 (150-400); RDW Standard Deviation 59.7 fL (35.1-46.3); Red Blood Cell Count 2.58 M/mm3 (4.30-5.90); White Blood Cell Count 22.18 K/mm3 (4.00-11.30)
[2021-03-19 03:42] LABS: Anion Gap 2 mmol/L (6-16); Blood Urea Nitrogen 13 mg/dL (8-24); Bun/Creatinine Ratio 36.7 (12.0-20.0); CO2, Blood 34 mmol/L (21-32); Calcium, Blood 7.8 mg/dL (8.5-10.1); Chloride, Blood 106 mmol/L (98-108); Creatinine, Blood 0.35 mg/dL (0.60-1.20); Glomerular Filtration Rate >60 (60-); Glucose, Blood 106 mg/dL (70-99); Phosphorus, Blood 2.5 mg/dL (2.5-4.9); Potassium, Blood 3.9 mmol/L (3.5-5.5); Sodium, Blood 142 mmol/L (136-145)
[2021-03-19 03:57] LABS: BAND PERCENT MAN 4 % (0-8); BASOPHILS PERCENT MAN 0 % (0-2); EOSINOPHILS PERCENT MAN 0 % (0-6); LYMPHOCYTES ABSOLUTE MAN 4.87 K/mm3 (0.84-5.20); LYMPHOCYTES PERCENT MAN 22 % (21-46); METAMYELOCYTE ABSOLUTE MAN 0.44 K/mm3 (0.00-0.00); METAMYELOCYTE PERCENT MAN 2 % (0-0); MONOCYTES ABSOLUTE MAN 0.44 K/mm3 (0.16-1.47); MONOCYTES PERCENT MAN 2 % (4-13); MYELOCYTE ABSOLUTE MAN 0.22 K/mm3 (0.00-0.00); MYELOCYTE PERCENT MAN 1 % (0-0); NEUTROPHILS ABSOLUTE MAN 16.19 K/mm3 (1.96-9.15); SEG NEUTROPHILS PERCENT MAN 69 % (41-73); TOTAL CELLS COUNTED 100
--- NOTE | 2021-03-19 07:06 | NUR ---
SHIFT SUMMARY: PT REMAINS INTUBATED AND SEDATED. VENT SETTINGS: AC/PC 25/22/12/90%. GTT INFUSIONS INCLUDE: VERSED 7MG/HR, LEVO 3MCG/KG/MIN, PRECEDEX 1.4MCG/KG/HR, KETAMINE 20MCG/KG/MIN, FENTANYL 100MCG/HR, AND HEPARIN HAS BEEN ON HOLD SINCE 0600 FOR PLANNED TRACH. VITALS WNL. FARIA CONTINUES TO DRAIN YELLOW URINE TO GRAVITY. OGT IN PLACE AND CLAMPED. REPORT GIVEN TO RUFINA MONTIEL.
--- NOTE | 2021-03-19 07:42 | NUR ---
rEPORT RECIEVED FROM CRUTCHING CONTRACTOR RN. RT IN ROOM AT 0715 PT AT 80% SPO2, REPOSITIONED PT. HE SLOWLY CAME BACK UP TO 98%. NEURO PUPILS 5 BRISK, SCERA EDEMA AND JAUNDICE IN COLOR. NO WITHDRAWING TO PAINFUL STIMULI X4 EXTREMITIES. NO GAG OR COUGH REFLEX. BIS READING 25. CARDIAC AFIB RATE 88, BP 132/83. PULSES PER DOPPLER IN BILAT LOWER EXTREMITIES. RADIAL PULES PALPABLE. LUNGS ARE CLEAR/DIM. VENT SETTINGS PC PEEP 12, RATE 25, 100% FIO2. SPO2 97%. RT JUST GAVE BREATHING TREATMENT. PATIENT LOOKS LIKE HE IS GUMPY BREATHING WITH VENTILATOR EVEN WITH ALL SEDATION ON BOARD. FENTANYL 100 MCG/HR, VERSED 7 MG/HR, KETAMINE 20 MCG/KG/MIN, PRECEDEX 1.4 MCG/KG/HR. HE IS ON LEVOPHED 3 MCG/MIN. HE IS OFF HEPRIN GTT AND TUBE FEEDINGS FOR TRACH PLACEMENT THIS MORNING. OGT IN PLACE TAPED TO ETT. CLAMPED AT THIS TIME. HOLDING ALL MEDS TO GO DOWN THIS MORNING. BOWEL TONES NORMAL. NO BM AT THIS TIME. F/C IN PLACE YELLOW WITH SEDIMENT AND SMALL BLOOD CLOTS. HE HAS 2 CHEST TUBES TO WATER SEAL ON RIGHT SIDE. SCATTERED BRUISING OVER BODY. RASH IN GROIN AREA. HANDS AND FEET ARE GETTING MODELED. CURRENTLY ON LEFT SIDE, WILL TO SUPINE AT 0800. PATIENT APPEARS TO BE DECLINING FROM YESTERDAY.
[2021-03-19 11:55] LABS: Vancomycin, Trough 23.8 ug/mL (5.0-10.0)
--- NOTE | 2021-03-19 16:22 | NUR ---
Met with she is having great moral distress oever pulling the plug as she states it. She is basing it on her asha. she understands he is dying but does not want to participate in the process. She is bargaining for time. She states she lost a child when they were intheir twenties and she is reliving that trauma. Reassured her that we are not wanting to pull the plug but trying to prevent extrodianry suffering.. updated panel machine setter on conversation and we will stay the course.
--- NOTE | 2021-03-19 18:00 | NUR ---
PATIENT REMAINS TENUOUS THROUGH OUT DAY. MATY (EX-, DECISION MAKER) WAS UPDATED BY [facility] AND SHE CAME IN TO SEE PATIENT TODAY. NO NEW SEDATION WAS ADDED DURING THE DAY JUST A BOLUS OF ATIVAN WAS GIVEN NEAR BEGINNING OF SHIFT. HE STILL LOOKS LIKE HE IS GUPPY BREATHING ON VENTILATOR, BUT NOT SEVERE. HIS HEPRIN GTT WAS RESTARTED TODAY WITH HELP OF PHARMACY. WHEN LAYING DOWN AND REPOSITIONING HE STILL GETS HIS RR UP TO 40'S AND DESTATS DOWN TO LOW 80'S. ONCE LEFT ALONE FOR A BIT HE CALMS DOWN. HIS BLOOD PRESSURE KEEPS DROPING SO HIS LEVOPHED HAS BEEN INCREASED TO 6 AND HIS METOPROLOL HAS BEEN HELD THROUGH OUT THE DAY. HIS LAST BLOOD SUGAR AROUNG 1729 WAS ONLY 137 SO HE DID NOT RECEIVE ANY INSULIN, THIS IS NEW FOR HIM. MD WAS MADE AWARE OF DECREASING BLOOD SUGAR AND BLOOD PRESSURES THROUGH OUT THE DAY.
--- NOTE | 2021-03-19 19:00 | NUR ---
ASSUME CARE NOTE: PT INTUBATED AND SEDATED, NOT WITHDRAWING TO PAINFUL STIMULI BUT GRIMACES TO ORAL CARE AND INCREASES RESPIRATORY RATE WITH TURNS. NO COUGH OR GAG REFLEX. VENT SETTINGS: AC/PC R: 22 PC: 25 PEEP: 12 FIO2: 95% AND CURRENTLY SATING 96%. HR AND BP WNL; APPEARS AFIB ON THE MONITOR. FARIA IS DRAINING URINE TO GRAVITY. OGT IN PLACE WITH TF RUNNING AT 30ML/HR WITH PLANS TO INCREASE TO GOAL OF 45ML/HR. 2 RIGHT LATERAL CHEST TUBES IN PLACE WITH C/D/I DRESSINGS TO SUCTION. THERE IS BRUISING AROUND HIS ABDOMEN AND MEPILEX IN PLACE ON RIGHT ELBOW FOR A SKIN TEAR. SCDS IN PLACE. FOR SEDATION PT HAS VERSED GTT 7MG/HR, PRECEDEX 1.4MCG/KG/HR, KETAMINE (DOUBLE CONCENTRATION) 20MCG/KIN/MIN, AND FENTANYL 100MCG/HR. HE ALSO HAS LEVO 6MCG/MIN AND HEPARIN 23 UNITS INFUSING. SEE SHIFT ASSESSMENT FOR DETAILS.
[2021-03-20 04:47] LABS: Hematocrit 24.3 % (37.0-53.0); Hemoglobin 7.2 g/dL (13.5-17.5); Mean Corpuscular HGB 30.5 pg (26.0-34.0); Mean Corpuscular HGB Conc 29.6 g/dL (31.5-36.5); Mean Corpuscular Volume 103 fL (80-100); Mean Platelet Volume 10.5 fL (9.1-12.4); NRBC ABSOLUTE 1.91 K/mm3 (0.00-0.02); NRBC Auto 11.2 /100 WBC (0.0-0.2); Platelet Count 414 K/mm3 (150-400); RDW Coefficient Variation 17.4 % (11.7-14.2); RDW Standard Deviation 62.3 fL (35.1-46.3); Red Blood Cell Count 2.36 M/mm3 (4.30-5.90); White Blood Cell Count 17.11 K/mm3 (4.00-11.30)
[2021-03-20 05:02] LABS: Albumin, Blood 1.3 g/dL (3.4-5.0); Anion Gap 1 mmol/L (6-16); Blood Urea Nitrogen 10 mg/dL (8-24); Bun/Creatinine Ratio 25.1 (12.0-20.0); CO2, Blood 35 mmol/L (21-32); Calcium, Blood 7.5 mg/dL (8.5-10.1); Chloride, Blood 106 mmol/L (98-108); Glomerular Filtration Rate >60 (60-); Glucose, Blood 158 mg/dL (70-99); Magnesium, Blood 1.6 mg/dL (1.6-2.4); Phosphorus, Blood 2.5 mg/dL (2.5-4.9); Potassium, Blood 3.5 mmol/L (3.5-5.5); Sodium, Blood 142 mmol/L (136-145)
[2021-03-20 05:11] LABS: BAND PERCENT MAN 11 % (0-8); BASOPHILS ABSOLUTE MAN 0.34 K/mm3 (0.00-0.23); BASOPHILS PERCENT MAN 2 % (0-2); EOSINOPHILS PERCENT MAN 0 % (0-6); LYMPHOCYTES ABSOLUTE MAN 0.68 K/mm3 (0.84-5.20); LYMPHOCYTES PERCENT MAN 4 % (21-46); METAMYELOCYTE ABSOLUTE MAN 0.51 K/mm3 (0.00-0.00); METAMYELOCYTE PERCENT MAN 3 % (0-0); MONOCYTES ABSOLUTE MAN 0.51 K/mm3 (0.16-1.47); MONOCYTES PERCENT MAN 3 % (4-13); MYELOCYTE ABSOLUTE MAN 0.17 K/mm3 (0.00-0.00); MYELOCYTE PERCENT MAN 1 % (0-0); NEUTROPHILS ABSOLUTE MAN 14.88 K/mm3 (1.96-9.15); SEG NEUTROPHILS PERCENT MAN 76 % (41-73); TOTAL CELLS COUNTED 100
--- NOTE | 2021-03-20 06:31 | NUR ---
SHIFT SUMMARY: PT REMAINS INTUBATED AND DIFFICULT TO SEDATE. ON TOP OF VERSED INFUSING AT 7MG/HR, PRECEDEX AT 1.4MCG/KG/HR, KETAMINE AT 20MCG/KG/MIN, AND FENTANYL AT 100MCG/HR, ATIVAN 4MG GIVEN SEVERAL TIMES THIS SHIFT BECAUSE PT'S RESPIRATORY RATE WAS IN THE 50'S, HR IN THE 130-150'S, AND WAS GUPPY BREATHING DESPITE BEING ON 100% FIO2 ON THE VENT. VENT SETTINGS ARE NOW: AC/PC R: 25 PC: 22 PEEP: 12 FIO2: 100%. CURRENTLY HE IS SATING 98%, HR 87, BP 110/58, AND RESPIRATIONS AT 25. LEVO HAS BEEN INCREASED TO 12MCG/MIN TO KEEP MAP >90. HEPARIN IS NOW INFUSING AT 24UNITS/KG/HR. TMAX WAS 99.4. FARIA IN PLACE DRAINING WHITNEY URINE WITH SEDIMENT TO GRAVITY. OGT STILL IN PLACE WITH TF RUNNING AT GOAL. NEW POWER GLIDE PLACED IN LEFT UPPER ARM BECAUSE PICC WILL NO LONGER DRAW BACK BLOOD AND PT IS TOO EDEMATOUS FOR LAB DRAWS. WILL REPORT TO ONCOMING RN WHEN AVAILABLE.
--- NOTE | 2021-03-20 13:26 | NUR ---
ASSUMED CARE: I have assumed care of pt at this time.
--- NOTE | 2021-03-20 18:58 | NUR ---
SHIFT SUMMARY: Report given to oncoming nurse. FIO2 currently at 75% with PEEP of 12. No output from either chest tube today; provider was made aware. Pt required PRN ativan prior to turning or oral care due to increased respiratory rate, nasal flairing, and diaphoresis. Levophed increased to 18 in order to keep MAP above 90. No BM today. Family did not visit today.
--- NOTE | 2021-03-20 19:15 | NUR ---
Assumed care. Report received from rodríguez MONTIEL. Pt in bed, sedated and ventilated via ETT. Vent settings: AC/PC 25/22/12/75%. OG tube in place, tube feed running at goal rate 45 ml/hr. PICC in GINI, powerglide in TAB. IV pump settings: Levophed 18 mcg/kg/hr, Heparin 24 units/kg/hr, fentanyl timber setter 100 mcg/hr, versed 7 mg/hr, precedex 1.4 mcg/kg/hr, ketamine 20 mcg/kg/min, NS 5 ml/hr. Chest tubes x2 in place, R/lateral, -20cm water suction applied to both. Handley catheter in place, draining clear/yellow urine. No acute needs noted at this time, will continue to monitor.
[2021-03-21 02:20] LABS: Hematocrit 23.9 % (37.0-53.0); Mean Corpuscular HGB 30.4 pg (26.0-34.0); Mean Corpuscular HGB Conc 29.3 g/dL (31.5-36.5); Mean Corpuscular Volume 104 fL (80-100); Mean Platelet Volume 10.5 fL (9.1-12.4); NRBC ABSOLUTE 0.92 K/mm3 (0.00-0.02); NRBC Auto 4.6 /100 WBC (0.0-0.2); Platelet Count 412 K/mm3 (150-400); RDW Coefficient Variation 17.2 % (11.7-14.2)
[2021-03-21 02:36] LABS: Alanine Aminotransfer (ALT/SGP 39 U/L (12-78); Albumin, Blood 1.4 g/dL (3.4-5.0); Albumin/Globulin Ratio 0.4 (0.8-1.8); Alk Phos 66 U/L (50-136); Anion Gap Unable to Calculate mmol/L (6-16); Aspartate Aminotrans (AST/SGOT 31 U/L (12-37); Bilirubin, Total 0.3 mg/dL (0.1-1.0); Blood Urea Nitrogen 11 mg/dL (8-24); Bun/Creatinine Ratio 29.6 (12.0-20.0); CO2, Blood 39 mmol/L (21-32); Calcium, Blood 7.4 mg/dL (8.5-10.1); Chloride, Blood 107 mmol/L (98-108); Creatinine, Blood 0.37 mg/dL (0.60-1.20); Globulin, Blood 3.8 g/dL (2.2-4.0); Glomerular Filtration Rate >60 (60-); Glucose, Blood 134 mg/dL (70-99); Phosphorus, Blood 2.2 mg/dL (2.5-4.9); Potassium, Blood 3.4 mmol/L (3.5-5.5); Sodium, Blood 143 mmol/L (136-145); Total Protein, Blood 5.2 g/dL (6.4-8.2)
[2021-03-21 02:37] LABS: BAND PERCENT MAN 13 % (0-8); BASOPHILS PERCENT MAN 1 % (0-2); EOSINOPHILS PERCENT MAN 0 % (0-6); LYMPHOCYTES PERCENT MAN 11 % (21-46); METAMYELOCYTE PERCENT MAN 1 % (0-0); MONOCYTES PERCENT MAN 5 % (4-13); SEG NEUTROPHILS PERCENT MAN 69 % (41-73); TOTAL CELLS COUNTED 100
--- NOTE | 2021-03-21 05:16 | NUR ---
CXR CHANGE CALL MADE TO DR. PORTER REGARDING CXR THAT APPEARED TO HAVE A RECURRING PNEUMOTHORAX TO RIGHT UPPER LUNG FIELD DESPITE THE TWO CHEST TUBES THAT ARE IN PLACE. BOTH CHEST TUBES NOTED TO HAVE NO LEAK TO WATER SEAL CHAMBER, WELL NO TIDALING. PEAK PRESSURES REMAIN ELEVATED AROUND 40; VSS; OXYGEN SATURATIONS REMAINED >92% WITH FIO2 AT 80%. UPDATED DR. PORTER REGARDING HX OF BLOOD CLOTS AND THE NEED FOR TPA ADMINISTRATION VIA CHEST TUBE. THEREFORE, DR. PORTER STATED SINCE PT'S VS ARE STABLE AT THIS TIME AND CHEST TUBE IS ADEQUATELY PLACED HE WOULD LEAVE IT UP TO STRINGING MACHINE TENDER TO REASSESS THIS MORNING AND DETERMINE COURSE OF TREATMENT/ACTION.
--- NOTE | 2021-03-21 06:22 | NUR ---
Shift summary. Pt continues in bed, sedated and ventilated. Vent settings: AC/PC 25/22/12/85%. OG tube in place, tube feed running at goal rate. Chest tubes in place, R/lateral x2, -20 water suction applied. PICC line in GINI, dressing/caps changed, powerglide in TAB. IV pump settings: Heparin 22.5 units/kg/hr, Levophed 6 mcg/kg/hr, ketamine 20 mcg/kg/min, versed 7 mg/hr, fentanyl driver guard 100 mcg/hr, precedex 1.2 mcg/kg/hr, NS 5 ml/hr. SCD's in place, bilateral calves. Handley catheter in place, draining yellow/clear urine. Pt sedation titrated down at beginning of shift, however pt respiratory rate increased and sats dropped. Sedation brought back up for ventilator compliance. During shift, pt lung sounds on r/side slowly worsened. AM xray showed worsening pneumo, Dr. Archuleta notified, segmental paving supervisor to manage treatment. Pt vital signs remained stable throughout shift, Fi02 titrated up from 75-85%. No other acute changes, see shift assessment/notes for details. Will continue to monitor and report off to dayshift RN.
--- NOTE | 2021-03-21 07:00 | NUR ---
ASSUME CARE: I have assumed care of pt at this time.
[2021-03-21 07:46] LABS: Vancomycin, Trough 9.1 ug/mL (5.0-10.0)
--- NOTE | 2021-03-21 07:55 | NUR ---
STATUS CHANGE: Pt's O2 sats dropped into th 70's. EET was suctioned with minimal secretions. Pt given 4mg of ativan. RT at bedside. Chest tubes still to wall suction with no apparent air leak. FI02 increased to 100% and Dr. Wasserman called to bedside.
--- NOTE | 2021-03-21 18:49 | NUR ---
SHIFT SUMMARY: Vent settings currently AC/PC, FI02 100%, PEEP 12. Pt requiring prn ativan for turns. During cares, pt becomes diaphoretic and is seen gasping with nasal flairing. K phos given today for potassium of 3.4. No BM; prn mirilax given. Pt's at bedside this evening and mentioned comfort care transition 03/25/21.
[2021-03-22 03:23] LABS: Hematocrit 26.7 % (37.0-53.0); Hemoglobin 7.7 g/dL (13.5-17.5); Mean Corpuscular HGB 30.6 pg (26.0-34.0); Mean Corpuscular HGB Conc 28.8 g/dL (31.5-36.5); Mean Corpuscular Volume 106 fL (80-100); Mean Platelet Volume 10.8 fL (9.1-12.4); NRBC ABSOLUTE 1.63 K/mm3 (0.00-0.02); NRBC Auto 7.3 /100 WBC (0.0-0.2); Platelet Count 462 K/mm3 (150-400); RDW Coefficient Variation 17.5 % (11.7-14.2); RDW Standard Deviation 66.8 fL (35.1-46.3); Red Blood Cell Count 2.52 M/mm3 (4.30-5.90); White Blood Cell Count 22.23 K/mm3 (4.00-11.30)
[2021-03-22 03:29] LABS: Base Excess Venous 13.4 mmol/L; Bicarbonate Venous 34.8 mmol/L (24.0-30.0); PCO2 Venous 88.1 mmHg (38-42); PO2 Venous 32.1 mmHg (38-42); pH Blood Venous 7.27 (7.34-7.37)
[2021-03-22 03:43] LABS: Albumin, Blood 1.5 g/dL (3.4-5.0); Anion Gap 0 mmol/L (6-16); Blood Urea Nitrogen 10 mg/dL (8-24); Bun/Creatinine Ratio 23.8 (12.0-20.0); CO2, Blood 39 mmol/L (21-32); Calcium, Blood 7.7 mg/dL (8.5-10.1); Chloride, Blood 104 mmol/L (98-108); Creatinine, Blood 0.42 mg/dL (0.60-1.20); Glomerular Filtration Rate >60 (60-); Glucose, Blood 131 mg/dL (70-99); Magnesium, Blood 1.8 mg/dL (1.6-2.4); Phosphorus, Blood 2.1 mg/dL (2.5-4.9); Potassium, Blood 3.7 mmol/L (3.5-5.5); Sodium, Blood 143 mmol/L (136-145)
[2021-03-22 03:49] LABS: BAND PERCENT MAN 12 % (0-8); BASOPHILS PERCENT MAN 0 % (0-2); EOSINOPHILS PERCENT MAN 0 % (0-6); LYMPHOCYTES ABSOLUTE MAN 5.33 K/mm3 (0.84-5.20); LYMPHOCYTES PERCENT MAN 24 % (21-46); METAMYELOCYTE ABSOLUTE MAN 0.22 K/mm3 (0.00-0.00); METAMYELOCYTE PERCENT MAN 1 % (0-0); MONOCYTES ABSOLUTE MAN 0.22 K/mm3 (0.16-1.47); MONOCYTES PERCENT MAN 1 % (4-13); NEUTROPHILS ABSOLUTE MAN 16.45 K/mm3 (1.96-9.15); SEG NEUTROPHILS PERCENT MAN 62 % (41-73); TOTAL CELLS COUNTED 100
--- NOTE | 2021-03-22 07:00 | NUR ---
ASSUMED CARE: I have assumed care of pt at this time.
[2021-03-22 07:34] LABS: Vancomycin, Trough 15.9 ug/mL (5.0-10.0)
--- NOTE | 2021-03-22 11:00 | NUR ---
Case conferenced with ICU IDT meeting this am. Family aware of pt's continued decline and have discussed a possible w/d of life support late in the week. I did not contact family today per request.
--- NOTE | 2021-03-22 14:47 | NUR ---
Met pt. in bed and the nurse in the room attendingto the needs of pt., prayed for pt.
--- NOTE | 2021-03-22 18:42 | NUR ---
SHIFT ASSESSMENT: FIO2 weaned to 40%. Propofol now at 15. Pt moving mouth and will attempt to open eyes. No purposeful movement of extremities noted. Large, foul smelling, liquid BM this afternoon. PICC line dressing changed today and naomi placed over insertion site due to oozing blood. Dressings changed for venous ulcers on BLE. Will continue to monitor pt until report given to oncoming nurse.
--- NOTE | 2021-03-22 18:52 | NUR ---
SHIFT SUMMARY: Pt status unchanged. Levo titrated back up to 6 mcg/kg/min. Chest tube dressings changed this shift due to green, malodorous drainage. Provider was notified and assessed chest tubes at bedside. No chest tube output.
[2021-03-23 03:28] LABS: BASOPHILS ABSOLUTE AUTO 0.08 K/mm3 (0.00-0.23); BASOPHILS PERCENT AUTO 0 % (0-2); EOSINOPHILS ABSOLUTE AUTO 0.01 K/mm3 (0.00-0.68); EOSINOPHILS PERCENT AUTO 0 % (0-6); Hematocrit 25.9 % (37.0-53.0); Hemoglobin 7.3 g/dL (13.5-17.5); IMMATURE GRAN ABSOLUTE AUTO 0.45 K/mm3 (0.00-0.10); IMMATURE GRAN PERCENT AUTO 2 % (0-1); LYMPHOCYTES ABSOLUTE AUTO 4.74 K/mm3 (0.84-5.20); LYMPHOCYTES PERCENT AUTO 18 % (21-46); MONOCYTES PERCENT AUTO 7 % (4-13); Mean Corpuscular HGB 30.2 pg (26.0-34.0); Mean Corpuscular HGB Conc 28.2 g/dL (31.5-36.5); Mean Corpuscular Volume 107 fL (80-100); Mean Platelet Volume 11.1 fL (9.1-12.4); NEUTROPHILS ABSOLUTE AUTO 19.77 K/mm3 (1.96-9.15); NEUTROPHILS PERCENT AUTO 73 % (41-73); NRBC Auto 4.8 /100 WBC (0.0-0.2); Platelet Count 460 K/mm3 (150-400); RDW Coefficient Variation 17.3 % (11.7-14.2); RDW Standard Deviation 67.4 fL (35.1-46.3); Red Blood Cell Count 2.42 M/mm3 (4.30-5.90); White Blood Cell Count 26.95 K/mm3 (4.00-11.30)
[2021-03-23 03:44] LABS: Albumin, Blood 1.6 g/dL (3.4-5.0); Anion Gap Unable to Calculate mmol/L (6-16); Blood Urea Nitrogen 18 mg/dL (8-24); Bun/Creatinine Ratio 30.9 (12.0-20.0); CO2, Blood 39 mmol/L (21-32); Calcium, Blood 7.6 mg/dL (8.5-10.1); Chloride, Blood 103 mmol/L (98-108); Creatinine, Blood 0.58 mg/dL (0.60-1.20); Glomerular Filtration Rate >60 (60-); Glucose, Blood 171 mg/dL (70-99); Phosphorus, Blood 2.6 mg/dL (2.5-4.9); Potassium, Blood 4.1 mmol/L (3.5-5.5); Sodium, Blood 140 mmol/L (136-145)
--- NOTE | 2021-03-23 06:10 | NUR ---
END OF SHIFT SUMMARY NEURO: UNRESPONSIVE, NO COUGH/GAG. CARDIAC: AFIB RATE 70-130. MAP 70-90, LEVO STILL AT 6MCG. 4+ PITTING EDEMA IN ALL EXTREMITIES. RESP: 100% ON VENT. SATS HAVE DROPPED TO LOW 80S. SATS ARE MAINTAINING IN LOW 80S. MD AWARE. NO NEW INTERNVENTION. GI: JEVITY 1.5 @ 45 (GOAL). 30CC FLUSH Q4H. NO BM SINCE 03/18/21. BS HYPOACTIVE. : DIMINISHED OUTPUT COMPARED TO PRIOR SHIFTS. 400 WHITNEY/SEDIMENT/HAZY OUT. SKIN: PALE, ECCHYMOTIC, SWOLLEN. SCLERAL EDEMA. SCROTAL EDEMA. GENERALIZED 4+ PITTING EDEMA. RASH IN FOLDS.
--- NOTE | 2021-03-23 15:04 | NUR ---
Met family member on visit in the room ,prayed with her for pt.
--- NOTE | 2021-03-23 18:45 | NUR ---
PT REMAINS INTUBATED AND SEDATED. NO CHEST TUBE OUTPUT PATIENT SATURATION IN HIGH 70S, DR. HART AWARE, NO INTERVENTIONS. LEVOPHED RUNNING AT 15 DUE TO LOW BLOOD PRESSURE. FAMILY AWARE OF PATIENT NEW STATUS.
[2021-03-23 20:16] LABS: Vancomycin, Trough 31.7 ug/mL (5.0-10.0)
--- NOTE | 2021-03-23 21:01 | NUR ---
ASSUMED CARE REPORT RECEIVED FROM JAYCOB VILLELA RN. PT IN BED, INTUBATED, DOES NOT FOLLOW COMMANDS/TRACK. PUPILS 3MM EQUAL AND SLUGGISH. PT ON HEPARIN, LEVOPHED, KEATMINE, FENTANYL, PRECDEX GTT. A-FIB ON MONITOR. PT BP DROPPING, MAP LESS THAN 55. LEVOPHED INCREASED TO 30MCG/MIN. DR. HART NOTIFIED, AND NO NEW ORDERS RECEIEVED. PT IS DO NOT ESCALTE CARE PER DR. HART. WILL CONTINUE TO MONITO.
--- NOTE | 2021-03-23 21:19 | NUR ---
CALL PLACED TO MATY, LETTING HER KNOW THAT PT HR AND BP WERE DROPPING AND TO GIVE HER THE OPPORTUNITY TO BE AT BEDSIDE. WE SPOKE FOR SOME TIME ABOUT HER FEELINGS ABOUT MALINI'S ILLNESS AND THAT SHE DIDNOT WANT TO SEE HIM TAKE HIS LAST BREATH ON THE VENTILATOR. SHE SAID SHE AND SON TACO WERE AT BEDSIDE TODAY. PROVIDED OPTIONS FOR SERVICES. WILL CALL HER AT TIME OF .
--- NOTE | 2021-03-23 22:06 | NUR ---
CALL TO MATY TO LET HER KNOW MALINI HAS PASSED. SHE FEELS SO RELIEVED THAT HE IS NOT MISERABLY UNCOMFORTABLE, AND THAT SHE DID NOT HAVE TO MAKE THE DECISION. CONFIRMS CHOICE OF [facility].
--- NOTE | 2021-03-23 22:28 | NUR ---
2142- PT NOTED NOT TO BE BREATHING OVER THE VENT. HR 49 WITH V-PACED. PUPILS DILATED AND NON-REACTIVE. PT NOTED TO BE IN PEA. NO HEART SOUNDS OR PULSES NOTED. TWO RN AT BEDSIDE TO CALL TIME OF . TIME OF 2142.
--- NOTE | 2021-03-24 10:55 | NUR ---
called to check on her has good support feels great relief and not having to make the call.
== END 2021-03-23 21:43 | DRG 870 ==
LOC: ER 16:39 → ICUW 21:44 → MEDS 21:44 → PCU 02-21 08:41 → ICUW 02-21 10:10
PROVIDERS: Family Medicine; Internal Medicine; Internal Medicine Critical Care Medicine; Pharmacist; Physician Assistant; Student in an Organized Health Care Education/Training Program; ADMIT Internal Medicine
PROC: 8E0ZXY6 Isolation (ICD-10-PCS; 2021-02-04)
PROC: 3E0333Z Introduction of Anti-inflammatory into Peripheral Vein, Percutaneous Approach (ICD-10-PCS; 2021-02-04)
PROC: XW033E5 Introduction of Remdesivir Anti-infective into Peripheral Vein, Percutaneous Approach, New Technology Group 5 (ICD-10-PCS; 2021-02-04)
PROC: 5A09357 Assistance with Respiratory Ventilation, Less than 24 Consecutive Hours, Continuous Positive Airway Pressure (ICD-10-PCS; 2021-02-10)
PROC: 5A1955Z Respiratory Ventilation, Greater than 96 Consecutive Hours (ICD-10-PCS; principal; 2021-02-21)
PROC: 0W9930Z Drainage of Right Pleural Cavity with Drainage Device, Percutaneous Approach (ICD-10-PCS; 2021-02-21)
PROC: 0BH17EZ Insertion of Endotracheal Airway into Trachea, Via Natural or Artificial Opening (ICD-10-PCS; 2021-02-21)
PROC: 03HY32Z Insertion of Monitoring Device into Upper Artery, Percutaneous Approach (ICD-10-PCS; 2021-02-21)
PROC: 4A133B1 Monitoring of Arterial Pressure, Peripheral, Percutaneous Approach (ICD-10-PCS; 2021-02-21)
PROC: 4A133J1 Monitoring of Arterial Pulse, Peripheral, Percutaneous Approach (ICD-10-PCS; 2021-02-21)
PROC: 02HV33Z Insertion of Infusion Device into Superior Vena Cava, Percutaneous Approach (ICD-10-PCS; 2021-02-21)
PROC: 3E043XZ Introduction of Vasopressor into Central Vein, Percutaneous Approach (ICD-10-PCS; 2021-02-21)
PROC: 0W9930Z Drainage of Right Pleural Cavity with Drainage Device, Percutaneous Approach (ICD-10-PCS; 2021-02-27)
PROC: 0W9930Z Drainage of Right Pleural Cavity with Drainage Device, Percutaneous Approach (ICD-10-PCS; 2021-03-05)
PROC: 3E0G76Z Introduction of Nutritional Substance into Upper GI, Via Natural or Artificial Opening (ICD-10-PCS; 2021-03-12)
PROC: 3E0L3GC Introduction of Other Therapeutic Substance into Pleural Cavity, Percutaneous Approach (ICD-10-PCS; 2021-03-12)
PROC: 30233N1 Transfusion of Nonautologous Red Blood Cells into Peripheral Vein, Percutaneous Approach (ICD-10-PCS; 2021-03-14)
PROC: 0W9930Z Drainage of Right Pleural Cavity with Drainage Device, Percutaneous Approach (ICD-10-PCS; 2021-03-14)
PROC: 3E0L3GC Introduction of Other Therapeutic Substance into Pleural Cavity, Percutaneous Approach (ICD-10-PCS; 2021-03-14)
DX: A41.89 Other specified sepsis (principal); U07.1 COVID-19; J12.82 Pneumonia due to coronavirus disease 2019; R65.21 Severe sepsis with septic shock; J86.9 Pyothorax without fistula; Z66 Do not resuscitate; J80 Acute respiratory distress syndrome; G92.9 Unspecified toxic encephalopathy; I26.99 Other pulmonary embolism without acute cor pulmonale; J15.211 Pneumonia due to Methicillin susceptible Staphylococcus aureus; J93.9 Pneumothorax, unspecified; I42.0 Dilated cardiomyopathy; E87.1 Hypo-osmolality and hyponatremia; I50.22 Chronic systolic (congestive) heart failure; I48.20 Chronic atrial fibrillation, unspecified; J94.2 Hemothorax; D62 Acute posthemorrhagic anemia; I42.6 Alcoholic cardiomyopathy; R19.7 Diarrhea, unspecified; I11.0 Hypertensive heart disease with heart failure; G47.33 Obstructive sleep apnea (adult) (pediatric); E66.01 Morbid (severe) obesity due to excess calories; D75.1 Secondary polycythemia; K59.00 Constipation, unspecified; A41.01 Sepsis due to Methicillin susceptible Staphylococcus aureus; M25.511 Pain in right shoulder; I08.1 Rheumatic disorders of both mitral and tricuspid valves; E83.39 Other disorders of phosphorus metabolism; Z68.32 Body mass index [BMI] 32.0-32.9, adult; E11.65 Type 2 diabetes mellitus with hyperglycemia; E87.6 Hypokalemia; Z91.19 Patient's noncompliance with other medical treatment and regimen; Z78.1 Physical restraint status; F10.20 Alcohol dependence, uncomplicated; E11.42 Type 2 diabetes mellitus with diabetic polyneuropathy; Z71.6 Tobacco abuse counseling; D63.8 Anemia in other chronic diseases classified elsewhere; D75.839 Thrombocytosis, unspecified; F32.A Depression, unspecified; K21.9 Gastro-esophageal reflux disease without esophagitis; F17.210 Nicotine dependence, cigarettes, uncomplicated; Z90.89 Acquired absence of other organs; Z79.899 Other long term (current) drug therapy; Z79.01 Long term (current) use of anticoagulants; Z95.810 Presence of automatic (implantable) cardiac defibrillator; Z98.890 Other specified postprocedural states; Z90.81 Acquired absence of spleen
CPT/HCPCS: 31500; 32551; 36415; 36416; 36430; 36569; 36600; 36620; 51702; 71045; 71250; 71275; 74018; 74177; 80048; 80053; 80069; 80162; 80202; 81001; 82248; 82330; 82550; 82553; 82728; 82803; 82945; 82947; 83036; 83605; 83615; 83690; 83735; 83880; 84100; 84145; 84157; 84478; 84484; 85014; 85018; 85025; 85027; 85379; 85730; 86140; 86850; 86900; 86901; 86923; 87040; 87070; 87075; 87077; 87102; 87147; 87186; 87205; 89051; 93005; 93010; 93306; 94002; 94003; 94640; 94660; 94664; 94760; 94762; 96361; 96374; 99285-25; A9270; C1729; C1751; C9113; J0610; J0690; J1100; J1644; J1650; J1815; J1940; J2060; J2185; J2250; J2704; J2920; J2930; J2997; J3010; J3370; J7030; J7040; J7050; J7060; J7120; P9016; P9046; Q9967